=== PATIENT | male | born 1940 | race Caucasian/White ===

== ENCOUNTER → 2016-07-24 | Outpatient (CLI) | payer OTHER ==
[~2016-07-24] MED LIST: ASPEC81 PO; DICL50TA3 PO; GLC500 PO; SIMV80TA2 PO
[2016-07-24 12:18] LABS: BASO % 0.3 %; BASO ABS # 0.02 K/uL (0-0.2); COMPLETE YES; EOS % 2.2 %; HEMATOCRIT 39.7 % (42-52); IG% 0.3 %; LYMPH % 28.8 %; LYMPH ABS # 1.93 K/uL (1.2-3.4); MEAN CELL VOLUME 93.4 fL (80-100); MEAN CORPUSCULAR HEMOGLOBIN 32.9 pg (25-34); MEAN CORPUSCULAR HGB CONC 35.3 g/dl (32-36); MEAN PLATELET VOLUME 10.1 fL (7.4-10.4); MONO % 9.1 %; NEUT % 59.3 %; PLATELET COUNT 182 K/uL (130-400); RED BLOOD COUNT 4.25 M/uL (4.7-6.1)
[2016-07-24 12:32] LABS: ALT/SGPT 27 U/L (12-78); AST/SGOT 12 U/L (15-37); BLOOD UREA NITROGEN 16 mg/dl (7-18); BUN/CREATININE RATIO 13.4 (10-20); CALCIUM 8.1 mg/dl (8.5-10.1); CARBON DIOXIDE 29 mmol/L (21-32); CHLORIDE 104 mmol/L (98-107); GLUCOSE 137 mg/dl (70-99); SODIUM 139 mmol/L (136-145)
[2016-07-24 12:43] LABS: ALB/GLOB RATIO 1.4 (0.9-2); ALKALINE PHOSPHATASE 64 U/L (45-117); CHOLESTEROL 145 mg/dl (0-200); CHOLESTEROL/HDL RATIO 4.8; HDL CHOLESTEROL 30 mg/dl; LDL CHOLESTEROL CALCULATED 70 mg/dl; TRIGLYCERIDES 223 mg/dl (0-150); VERY LOW DENSITY LIPOPROT CALC 45 mg/dl
[2016-07-24 12:49] LABS: ESTIMATED AVERAGE GLUCOSE 143 mg/dl; HA1C FLAG Normal (Normal)
[2016-07-24 18:20] LABS: RATIO 28.4 mcg/mg (0-30.0); URINE APPEARANCE CLEAR (CLEAR); URINE BILIRUBIN NEG (NEG); URINE COLOR YELLOW; URINE NITRITE NEG (NEG); URINE SPECIFIC GRAVITY 1.025 (1.000-1.030); UROBILINOGEN NEG (NEG); ZZUR CULT IF INDIC CLEAN CATCH NO
[2016-07-24 18:22] LABS: MANUAL MICROSCOPIC REQUIRED? NO; REVIEW REQ? NO
== END | disposition home or self-care (01) ==
LOC: C.LABBFT 07:44
PROVIDERS: ATTEND Internal Medicine
DX: E11.49 Type 2 diabetes mellitus with other diabetic neurological complication (principal); E78.5 Hyperlipidemia, unspecified

== ENCOUNTER → 2017-01-22 | Outpatient (CLI) | payer OTHER ==
[2017-01-22 12:39] LABS: ESTIMATED AVERAGE GLUCOSE 140 mg/dl; HA1C FLAG Normal (Normal)
== END | disposition home or self-care (01) ==
LOC: C.LABBFT 07:36
PROVIDERS: ATTEND Internal Medicine
DX: E11.49 Type 2 diabetes mellitus with other diabetic neurological complication (principal)

== ENCOUNTER 2020-07-06 13:35 | Observation (INO) ==
[2020-07-06] MEDS ORDERED: SODIUM CHLORIDE 0.9% 1000ML 1,000 ML IV STA (14:14)
[2020-07-06] MEDS ORDERED: ONDANSETRON INJ 2 MG/ML 2 ML VIAL IV STA (14:14)
--- NOTE | 2020-07-06 14:19 | Emergency Department Note ---
Impression & Plan Diffuse abdominal pain, NAMRATA (acute kidney injury), Acute dehydration, Ureteral stone ED Provider Note NAME: ERICA WALLACE AGE: 79 SEX: M : 1940 ARRIVES VIA: Walk-In INFORMANT: [Patient][] ED PROVIDER(S): [Augie Long MD] CHIEF COMPLAINT: Abdominal pain HISTORY OF PRESENT ILLNESS: The patient is an 79-year-old male who states that he has not been having luck moving his bowels. He has had no bowel movement really for the last 5 days. Patient states that he has colicky abdominal pain that is moderate in severity. He has tried MiraLAX, prune juice, yogurt and suppositories, he tried a fleets enema, nothing seems to help. There has been a loss of appetite and some nausea, no vomiting. No fever. No cough or cold or congestion. No chest pain. The patient has recently had some medication changes. He was put on medications for difficulty emptying his bladder. He wonders if these medications have messed up his intestinal tract. Patient is concerned about a bowel blockage or severe constipation causing his trouble. He has no history of constipation. REVIEW OF SYSTEMS: See HPI for pertinent positives and negatives. A total of ten systems were reviewed and were otherwise negative. PMHx/PSHx: See Below SOCIAL HISTORY: See Below. PHYSICAL EXAM: GENERAL: Patient is in no acute distress. HEENT: No acute trauma, normocephalic atraumatic, mucous membranes moist, no nasal congestion, no scleral icterus. NECK: No stridor, no adenopathy, no meningismus, trachea is midline. LUNGS: Clear to auscultation bilaterally, no wheeze, no rhonchi, breath sounds equal. HEART: Without murmurs gallops or rubs, regular rate and rhythm. ABDOMEN: Soft, nontender, bowel sounds positive, no hernias, no peritonitis. There is some abdominal distention noted. EXTREMITIES: No cyanosis or edema, full range of motion of all the joints with out pain or difficulty, no signs for acute trauma. NEUROLOGIC: Oriented x 3, no acute motor or sensory deficits, no focal weakness. SKIN: No rash, no jaundice, no diaphoresis. Rectal: No stool in the rectal vault. No mass felt. DIFFERENTIAL DIAGNOSIS: Appendicitis, testicular torsion, infections, diverticulitis, UTI, obstruction, mesenteric ischemia, aortic pathology, inflammatory bowel disease, renal colic, PUD, pancreatitis, biliary pathology, hernia, volvulus, constipation, as well as other pathologies. EMERGENCY DEPARTMENT COURSE/PROCEDURES: ECG: Indication was abdominal pain. The ECG shows a normal sinus rhythm with a rate of 81. There is some baseline artifact. There are no PVCs. There is no ST elevation. The QTc is 441. Continuous Cardiac Monitoring: An order was placed for continuous cardiac monitoring. The monitor shows a rate of 98 with normal sinus rhythm. MEDICAL DECISION MAKING: There is a very slight leukocytosis, this could be consistent with infection or just his pain. There is a normal hemoglobin and platelet count. There was evidence for acute kidney injury with a creatinine of 2.22. BUN was also elevated. Lactic acid level was not elevated making severe sepsis less likely. No concerning liver enzyme elevation. No evidence for pancreatitis. Urinalysis suggests some contamination, there was no obvious infection. Covid testing returned negative. Chest x-ray did not show free air or pneumonia. Abdominal and pelvis CT does not show bowel obstruction or any acute surgical process. There was a left-sided hydronephrosis secondary to a large left proximal ureteral stone. Bladder scan testing did not show significant urinary retention. A Foster catheter was not necessary. The patient received IV saline, 1 L. He was given IV Zofran for nausea. He did not want anything for pain. The patient presents with what he thought was constipation. He is not overly constipated. He does appear to have a ureteral stone which I think is causing his abdominal pain. This stone coupled with some dehydration has led to his acute kidney injury. Given his findings, I do think a hospital stay is warranted. He will likely require urologic intervention for stone extraction/removal. I spoke to the patient and his family, I spoke with case management. The on- call hospitalist was consulted. Past Med/Surg History Medical History Arm pain Dental abscess Muscle pain, cervical Myalgia and myositis On prednisone therapy Seizures T2DM (type 2 diabetes mellitus) Surgical History History of colonoscopy History of nasal surgery Family History Mother Myocardial infarction Coronary heart disease Father Hemorrhage Other Family history non-contributory Denies family history of Ovarian cancer Prostate cancer Breast cancer Colorectal cancer Social History Smoking Status: Never smoker Second Hand Exposure: No; Hx Alcohol Use: No Hx Substance Use: No Preferred Language: Greek Communication Ability: Effective Visual Impairment: No Limitations Hearing Ability: Use of Hearing Aid Beliefs That Will Affect Care: None marital status: Current Living Situation: Spouse current occupational status: retired Feels Safe at Home: Yes Childhood Exposure to Second-Hand Smoke: No caffeine: Yes during the past year weight has: remained stable Dental Care, Regularly: Yes Physical Activity Frequency: 1-2 Times per Week Physical Activity Frequency Comment: walks Seatbelt Use: always Sunscreen Use: No Allergies Allergies Allergy/AdvReac Type Severity Reaction Status Date / Time lisinopril Allergy Mild COUGH Verified 07/06/20 14:10 doxazosin AdvReac Mild TIRED Verified 07/06/20 14:10 Home Meds Home Medications Medication Instructions Recorded Confirmed leflunomide 20 mg tablet 20 mg PO DAILY 05/25/20 07/06/20 prednisone 10 mg tablet See Rx Instructions .ROUTE 06/28/20 07/06/20 .COMPLEX tab cholecalciferol (vitamin D3) 50 500 mcg PO DAILY 07/05/20 07/06/20 mcg (2,000 unit) capsule vitamin B complex 1 tab PO DAILY 07/06/20 07/06/20 Previous Rx's Medication Instructions Recorded aspirin 81 mg tablet,delayed 81 mg PO DAILY #30 tab 11/18/18 release ibuprofen 200 mg tablet 200 mg PO Q6H PRN #120 tab 11/18/18 carbidopa ER 25 mg-levodopa 100 mg 1 tab PO BID 30 Days #60 tab 05/26/20 tablet,extended release clotrimazole 1 % topical cream See Rx Instructions TOPICAL BID 06/28/20 PRN #15 g fluconazole 150 mg tablet 150 mg PO Q3D #2 tab 06/28/20 irbesartan 75 mg tablet 75 mg PO DAILY #90 tab 06/28/20 linagliptin 5 mg tablet 5 mg PO DAILY #30 tab 06/28/20 simvastatin 20 mg tablet 20 mg PO DAILY #90 tab 06/28/20 blood sugar diagnostic #100 ea 07/05/20 glimepiride 4 mg tablet 4 mg PO BID #180 tab 07/05/20 tamsulosin 0.4 mg capsule 0.4 mg PO DAILY #30 cap 07/05/20 Results & Data (ED) Vital Signs Vital Signs - 24 hr 07/06/20 13:37 07/06/20 15:33 07/06/20 16:13 Temperature 36.6 C Temperature Source Temporal Artery Scan Pulse Rate 102 H Pulse Rate [Right Finger] 85 Respiratory Rate 18 16 Respiratory Effort / Characteristics Non-Labored Spontaneous Non-Labored Spontaneous Respiratory Depth Normal Normal Blood Pressure 102/61 Blood Pressure [Right Arm] 166/83 H Blood Pressure Mean 74 Blood Pressure Mean [Right Arm] 110 Blood Pressure Position Sitting Pulse Oximetry 94 98 98 Oxygen Delivery Method Room Air Room Air Room Air Sepsis Recent Fever Within 48 Hours No Sepsis New/Unexplained Change in Mental Status No Sepsis Action Taken by Nursing No Action Required 07/06/20 17:42 Temperature Temperature Source Pulse Rate Pulse Rate [Right Finger] Respiratory Rate 16 Respiratory Effort / Characteristics Non-Labored Spontaneous Respiratory Depth Normal Blood Pressure Blood Pressure [Right Arm] 126/76 Blood Pressure Mean Blood Pressure Mean [Right Arm] 92 Blood Pressure Position Pulse Oximetry 98 Oxygen Delivery Method Room Air Sepsis Recent Fever Within 48 Hours Sepsis New/Unexplained Change in Mental Status Sepsis Action Taken by Residential Medications Current Medication List: was personally reviewed by me Laboratory Data Attestation: I reviewed the patient's lab results. Result diagrams: 07/06/20 14:47 07/06/20 14:47 Lab Results 07/06/20 07/06/20 07/06/20 Range/Units 14:47 14:47 14:47 WBC 10.83 H (4.8-10.8) K/uL RBC 4.78 (4.7-6.1) M/uL Hgb 15.1 (14.0-18.0) g/dL Hct 42.1 (42-52) % MCV 88.1 (80-100) fL MCH 31.6 (25-34) pg MCHC 35.9 (32-36) g/dL RDW Std Deviation 45.0 (36.4-46.3) fL RDW Coeff of [place] 13.9 (11.5-14.5) % Plt Count 166 (130-400) K/uL MPV 10.0 (7.4-10.4) fL Immature Gran % (Auto) 0.2 % Neut % (Auto) 74.5 % Lymph % (Auto) 10.0 % [place] % (Auto) 15.0 % Eos % (Auto) 0.2 % Baso % (Auto) 0.1 % Neut # (Auto) 8.08 H (1.4-6.5) K/uL Lymph # (Auto) 1.08 L (1.2-3.4) K/uL [place] # (Auto) 1.62 H (0.11-0.59) K/uL Eos # (Auto) 0.02 (0-0.5) K/uL Baso # (Auto) 0.01 (0-0.2) K/uL Immature Gran # (Auto) 0.02 (0.00-0.02) K/uL Sodium 132 L (136-145) mmol/L Potassium 4.0 (3.5-5.1) mmol/L Chloride 100 (98-107) mmol/L Carbon Dioxide 25 (21-32) mmol/L Anion Gap 7.0 (3-11) BUN 31 H (7-18) mg/dl Creatinine 2.22 H (0.6-1.4) mg/dl Est Cr Clr Drug Dosing 26.5 ml/min Est GFR ( Amer) 31.3 Est GFR (Non-Af Amer) 27.0 BUN/Creatinine Ratio 13.9 (10-20) Glucose 167 H (70-99) mg/dl Lactate 1.3 (0.4-2.0) mmol/L Calcium 8.3 L (8.5-10.1) mg/dl Magnesium 1.8 (1.8-2.4) mg/dl Total Bilirubin 1.3 H (0.2-1) mg/dl AST 9 L (15-37) U/L ALT 12 (12-78) U/L Alkaline Phosphatase 71 (45-117) U/L Troponin I < 0.015 (0-0.045) ng/ml Total Protein 6.7 (6.4-8.2) gm/dl Albumin 3.2 L (3.4-5.0) gm/dl Globulin 3.5 (2.5-4.0) gm/dl Albumin/Globulin Ratio 0.9 (0.9-2) Lipase 101 (73-393) U/L Urine Color Urine Appearance (Clear) Urine pH (4.5-7.5) Ur Specific [place] (1.000-1.030) Urine Protein (Negative) Urine Glucose (UA) (Negative) Urine Ketones (Negative) Urine Blood (Negative) Urine Nitrite (Negative) Urine Bilirubin (Negative) Urine Urobilinogen (Negative) Ur Leukocyte Esterase (Negative) Urine WBC (Auto) (0-5) /hpf Urine RBC (Auto) (0-4) /hpf U Hyaline Cast (Auto) (0-5) /lpf U Epithel Cells (Auto) (0-5) /lpf Urine Bacteria (Auto) (Negative) Urine Crystals Triple Phos Crystals (None Prsent) COVID-19 Eval Order SARS-CoV-2, RNA, NAAT (NEGATIVE) 07/06/20 07/06/20 07/06/20 Range/Units 16:15 17:35 17:35 WBC (4.8-10.8) K/uL RBC (4.7-6.1) M/uL Hgb (14.0-18.0) g/dL Hct (42-52) % MCV (80-100) fL MCH (25-34) pg MCHC (32-36) g/dL RDW Std Deviation (36.4-46.3) fL RDW Coeff of [place] (11.5-14.5) % Plt Count (130-400) K/uL MPV (7.4-10.4) fL Immature Gran % (Auto) % Neut % (Auto) % Lymph % (Auto) % [place] % (Auto) % Eos % (Auto) % Baso % (Auto) % Neut # (Auto) (1.4-6.5) K/uL Lymph # (Auto) (1.2-3.4) K/uL [place] # (Auto) (0.11-0.59) K/uL Eos # (Auto) (0-0.5) K/uL Baso # (Auto) (0-0.2) K/uL Immature Gran # (Auto) (0.00-0.02) K/uL Sodium (136-145) mmol/L Potassium (3.5-5.1) mmol/L Chloride (98-107) mmol/L Carbon Dioxide (21-32) mmol/L Anion Gap (3-11) BUN (7-18) mg/dl Creatinine (0.6-1.4) mg/dl Est Cr Clr Drug Dosing ml/min Est GFR ( Amer) Est GFR (Non-Af Amer) BUN/Creatinine Ratio (10-20) Glucose (70-99) mg/dl Lactate (0.4-2.0) mmol/L Calcium (8.5-10.1) mg/dl Magnesium (1.8-2.4) mg/dl Total Bilirubin (0.2-1) mg/dl AST (15-37) U/L ALT (12-78) U/L Alkaline Phosphatase (45-117) U/L Troponin I (0-0.045) ng/ml Total Protein (6.4-8.2) gm/dl Albumin (3.4-5.0) gm/dl Globulin (2.5-4.0) gm/dl Albumin/Globulin Ratio (0.9-2) Lipase (73-393) U/L Urine Color Yellow Urine Appearance Clear (Clear) Urine pH 5.5 (4.5-7.5) Ur Specific [place] 1.016 (1.000-1.030) Urine Protein 1+ H (Negative) Urine Glucose (UA) 1+ H (Negative) Urine Ketones Negative (Negative) Urine Blood Trace H (Negative) Urine Nitrite Negative (Negative) Urine Bilirubin Negative (Negative) Urine Urobilinogen Negative (Negative) Ur Leukocyte Esterase Negative (Negative) Urine WBC (Auto) 1-5 (0-5) /hpf Urine RBC (Auto) 0-4 (0-4) /hpf U Hyaline Cast (Auto) 1-5 (0-5) /lpf U Epithel Cells (Auto) >30 H (0-5) /lpf Urine Bacteria (Auto) Negative (Negative) Urine Crystals Not Reportable Triple Phos Crystals Present A (None Prsent) COVID-19 Eval Order Covid19 [facility] SARS-CoV-2, RNA, NAAT NEGATIVE (NEGATIVE) Administered Medications Discontinued Medications Sodium Chloride (Nss 1000ml) 1,000 mls @ 999 mls/hr IV .Q1H1M STA Stop: 07/06/20 15:14 Last Infusion: 07/06/20 16:28 Dose: 0 mls/hr Documented by: [id number] Admin: 07/06/20 15:01 Dose: 999 mls/hr Documented by: [id number] Ondansetron HCl (Ondansetron Inj 2 Mg/Ml 2 Ml Vial) 4 mg IV NOW STA Stop: 07/06/20 14:15 Last Admin: 07/06/20 15:01 Dose: 4 mg Documented by: [id number] Imaging Data Radiologist's Impression: SINGLE VIEW CHEST CLINICAL HISTORY: Generalized abdominal pain. FINDINGS: 2 AP, portable, upright chest radiographs are obtained. No prior studies are available for comparison at the time of dictation. The examination is degraded by portable technique, apical lordotic positioning, and patient rotation. The heart is top normal for projection. The pulmonary vasculature is noncongested. No airspace consolidation or large pleural effusion is identified. No pneumothorax is seen. The skeletal structures are osteopenic. The bony thorax is grossly intact. IMPRESSION: No acute cardiopulmonary abnormality. CT SCAN OF THE ABDOMEN AND PELVIS WITHOUT IV CONTRAST CLINICAL HISTORY: Generalized abdominal pain. Bloating. Loss of appetite. COMPARISON STUDY: Renal ultrasound dated 10/26/2019. TECHNIQUE: CT scan of the abdomen and pelvis is performed from the lung bases to the proximal femora. Images are reviewed in the axial, sagittal, and coronal planes. IV contrast was not administered for this examination. Oral contrast was utilized. A dose lowering technique was utilized adhering to the principles of ALARA. CT DOSE: 457.85 mGy.cm FINDINGS: Lung bases: The heart is normal in size and without pericardial effusion. The lung bases are clear noting bibasilar scarring/atelectasis. There is a small hiatal hernia. Liver: The unenhanced liver is normal in size, contour, and attenuation. There is no intrahepatic biliary ductal dilatation. Gallbladder: Unremarkable. Spleen: Normal in size and attenuation. Pancreas: The unenhanced pancreas is moderately atrophic and grossly unremarkable. Adrenal glands: Unremarkable. Kidneys: The unenhanced kidneys demonstrate cortical atrophy. There is a 10 mm obstructing calculus in the left proximal ureter at the level of L3 seen on axial image #231. This causes moderate left hydroureteronephrosis. There is a ssociated left-sided perinephric stranding and fluid. No additional calculi are identified in either kidney. There is no right-sided hydronephrosis. There is no evidence of contour deforming renal mass lesion. Abdominal vasculature: The abdominal aorta is normal in course and caliber noting mild to moderate atherosclerotic calcification. Bowel: There is no bowel obstruction. Enteric contrast reaches the right colon. Mild colonic fecal retention is noted. A large duodenal diverticulum is incide ntally noted. The appendix is well-visualized and normal. Peritoneum: There is no intraperitoneal free air. Trace fluid is seen tracking along the left paracolic gutter. There is a small fat-containing umbilical hernia. Lymphadenopathy: None. Pelvic viscera: The prostate gland is enlarged and heterogeneous noting median lobe hypertrophy. The bladder wall is thickened and trabeculated indicating chronic outlet obstruction. There are small bladder diverticula. There are small bilateral fat-containing inguinal hernias. Skeletal structures: The skeletal structures are osteopenic. There is mild to moderate lumbosacral spondylosis. No lytic or blastic lesions are seen. IMPRESSION: 1. There is a 10 mm obstructing calculus in the left proximal ureter. This causes moderate left hydroureteronephrosis. 2. No additional calculi are identified in either kidney. 3. Prostatomegaly with evidence of chronic bladder outlet obstruction. 4. Additional findings as above. Discharge Plan Visit Data Chief Complaint: Constipation Stated Complaint: UNABLE TO BOWEL MOVEMENT ED Provider: Augie Long Discharge Problem: Diffuse abdominal pain, NAMRATA (acute kidney injury), Acute dehydration, Ureteral stone Patient Disposition: Admitted As Inpatient Condition: Fair Forms Stand Alone Forms: [facility] Prescriptions Prescriptions: No Action carbidopa-levodopa 25-100 mg tablet extended release 1 tab PO BID 30 Days Qty: 60 RF: 2 Tradjenta 5 mg tablet 5 mg PO DAILY Qty: 30 RF: 5 simvastatin 20 mg tablet 20 mg PO DAILY Qty: 90 RF: 1 cholecalciferol (vitamin D3) 50 mcg (2,000 unit) capsule 500 mcg PO DAILY RF: 0 tamsulosin 0.4 mg capsule 0.4 mg PO DAILY Qty: 30 RF: 5 glimepiride 4 mg tablet 4 mg PO BID Qty: 180 RF: 3 (DME) [employer] Ultra Blue Test Strip Strip See Rx Instructions .ROUTE .MEDSUPPLY Qty: 100 RF: 3 leflunomide [Arava] 20 mg tablet 20 mg PO DAILY RF: 0 prednisone 10 mg tablet See Rx Instructions .ROUTE .COMPLEX RF: 0 fluconazole 150 mg tablet 150 mg PO Q3D Qty: 2 RF: 0 clotrimazole 1 % cream See Rx Instructions topical BID PRN (Reason: itching) Qty: 15 RF: 0 irbesartan 75 mg tablet 75 mg PO DAILY Qty: 90 RF: 3 aspirin [Aspirin Low Dose] 81 mg tablet,delayed release (DR/EC) 81 mg PO DAILY Qty: 30 RF: 5 ibuprofen [Advil] 200 mg tablet 200 mg PO Q6H PRN (Reason: pain) Qty: 120 RF: 5 vitamin B complex Tablet 1 tab PO DAILY RF: 0 Referrals Referrals: Umair Shi MD [Primary Care Provider] -
--- NOTE | 2020-07-06 14:39 | XRay Report ---
SINGLE VIEW CHEST CLINICAL HISTORY: Generalized abdominal pain. FINDINGS: 2 AP, portable, upright chest radiographs are obtained. No prior studies are available for comparison at the time of dictation. The examination is degraded by portable technique, apical lordot ic positioning, and patient rotation. The heart is top normal for projection. The pulmonary vasculat ure is noncongested. No airspace consolidation or large pleural effusion is identified. No pneumothor ax is seen. The skeletal structures are osteopenic. The bony thorax is grossly intact. IMPRESSION: No acute cardiopulmonary abnormality. ACT 112: Negative or not required by law. Electronically signed by: Augie Barrientos M.D. 07/06/2020 2:37 PM
[2020-07-06 15:05] LABS: Basophils # (auto) 0.01 K/uL (0-0.2); Basophils % (auto) 0.1 %; Eosinophils # (auto) 0.02 K/uL (0-0.5); Eosinophils % (auto) 0.2 %; Hematocrit (blood only) 42.1 % (42-52); Hemoglobin 15.1 g/dL (14.0-18.0); Immature Granulocytes # (auto) 0.02 K/uL (0.00-0.02); Immature Granulocytes % (auto) 0.2 %; Lymphocytes # (auto) 1.08 K/uL (1.2-3.4); Mean Corpuscular Hemoglobin 31.6 pg (25-34); Mean Corpuscular Hgb Conc 35.9 g/dL (32-36); Mean Corpuscular Volume 88.1 fL (80-100); Monocytes # (auto) 1.62 K/uL (0.11-0.59); Neutrophils # (auto) 8.08 K/uL (1.4-6.5); Neutrophils % (auto) 74.5 %; Platelet Count 166 K/uL (130-400); RDW Coefficient of Variation 13.9 % (11.5-14.5); Red Blood Count 4.78 M/uL (4.7-6.1); White Blood Count 10.83 K/uL (4.8-10.8)
[2020-07-06 15:19] LABS: Albumin Level 3.2 gm/dl (3.4-5.0); BUN Creatinine Ratio 13.9 (10-20); Blood Urea Nitrogen 31 mg/dl (7-18); Calcium 8.3 mg/dl (8.5-10.1); Carbon Dioxide 25 mmol/L (21-32); Chloride 100 mmol/L (98-107); Creatinine Clr Calc Pharmacy 26.5 ml/min; Est GFR (African American) 31.3; Glucose 167 mg/dl (70-99); Lipase 101 U/L (73-393); Magnesium 1.8 mg/dl (1.8-2.4); Sodium 132 mmol/L (136-145)
[2020-07-06 15:25] LABS: Alanine Aminotransferase 12 U/L (12-78); Albumin Globulin Ratio 0.9 (0.9-2); Alkaline Phosphatase 71 U/L (45-117); Aspartate Aminotransferase 9 U/L (15-37); Bilirubin,Total 1.3 mg/dl (0.2-1); Globulin 3.5 gm/dl (2.5-4.0); Total Protein 6.7 gm/dl (6.4-8.2); Troponin I < 0.015 ng/ml (0-0.045)
[2020-07-06 16:57] LABS: Appearance Urine Clear (Clear); Bacteria Urine Automated Negative (Negative); Bilirubin Urine Negative (Negative); Blood Urine Trace (Negative); Color Urine Yellow; Epithelial Cell Urine Auto >30 /lpf (0-5); Glucose Urine UA 1+ (Negative); Ketones Urine Negative (Negative); Leukocyte Esterase Urine Negative (Negative); Nitrite Urine Negative (Negative); Protein Urine 1+ (Negative); RBC Urine Automated 0-4 /hpf (0-4); Specific Gravity Urine 1.016 (1.000-1.030); Urobilinogen Urine Negative (Negative); pH Urine 5.5 (4.5-7.5)
--- NOTE | 2020-07-06 16:58 | Electrocardiogram Report ---
Test Reason : Blood Pressure : / mmHG Vent. Rate : 081 BPM Atrial Rate : 081 BPM P-R Int : 148 ms QRS Dur : 100 ms QT Int : 380 ms P-R-T Axes : 079 -55 067 degrees QTc Int : 441 ms Poor data quality, interpretation may be adversely affected Normal sinus rhythm Left anterior fascicular block Abnormal ECG When compared with ECG of 01-SEP-2018 09:40, Vent. rate has increased BY 28 BPM QT has lengthened Confirmed by Gen Nieves ([id number]) on 07/06/2020 4:58:26 PM Referred By: REFERRED SELF Confirmed By:Cody Nieves
--- NOTE | 2020-07-06 17:05 | CT Scan Report ---
CT SCAN OF THE ABDOMEN AND PELVIS WITHOUT IV CONTRAST CLINICAL HISTORY: Generalized abdominal pain. Bloating. Loss of appetite. COMPARISON STUDY: Renal ultrasound dated 10/26/2019. TECHNIQUE: CT scan of the abdomen and pelvis is performed from the lung bases to the proximal femora. Images are reviewed in the axial, sagittal, and coronal planes. IV contrast was not administered for this examination. Oral contrast was utilized. A dose lowering technique was utilized adhering to the principles of ALARA. CT DOSE: 457.85 mGy.cm FINDINGS: Lung bases: The heart is normal in size and without pericardial effusion. The lung bases are clear no ting bibasilar scarring/atelectasis. There is a small hiatal hernia. Liver: The unenhanced liver is normal in size, contour, and attenuation. There is no intrahepatic jimbo iary ductal dilatation. Gallbladder: Unremarkable. Spleen: Normal in size and attenuation. Pancreas: The unenhanced pancreas is moderately atrophic and grossly unremarkable. Adrenal glands: Unremarkable. Kidneys: The unenhanced kidneys demonstrate cortical atrophy. There is a 10 mm obstructing calculus i n the left proximal ureter at the level of L3 seen on axial image #231. This causes moderate left hyd roureteronephrosis. There is associated left-sided perinephric stranding and fluid. No additional denny culi are identified in either kidney. There is no right-sided hydronephrosis. There is no evidence of contour deforming renal mass lesion. Abdominal vasculature: The abdominal aorta is normal in course and caliber noting mild to moderate at herosclerotic calcification. Bowel: There is no bowel obstruction. Enteric contrast reaches the right colon. Mild colonic fecal re tention is noted. A large duodenal diverticulum is incidentally noted. The appendix is well-visualiz ed and normal. Peritoneum: There is no intraperitoneal free air. Trace fluid is seen tracking along the left paracol ic gutter. There is a small fat-containing umbilical hernia. Lymphadenopathy: None. Pelvic viscera: The prostate gland is enlarged and heterogeneous noting median lobe hypertrophy. The bladder wall is thickened and trabeculated indicating chronic outlet obstruction. There are small gato dder diverticula. There are small bilateral fat-containing inguinal hernias. Skeletal structures: The skeletal structures are osteopenic. There is mild to moderate lumbosacral sp ondylosis. No lytic or blastic lesions are seen. IMPRESSION: 1. There is a 10 mm obstructing calculus in the left proximal ureter. This causes moderate left hydro ureteronephrosis. 2. No additional calculi are identified in either kidney. 3. Prostatomegaly with evidence of chronic bladder outlet obstruction. 4. Additional findings as above. ACT 112: Negative or not required by law. Electronically signed by: Augie Barrientos M.D. 07/06/2020 5:04 PM
[2020-07-06 17:27] LABS: Triple Phosphate Crystal Urine Present (None Prsent)
--- NOTE | 2020-07-06 17:31 | History & Physical Report ---
Date of Service July 06, 2020 Assessment & Plan (1) Nephrolithiasis: - Admit to med surg - Consult urology for possible lithotripsy and stent placement in the AM. Allow clear liquid diet for now with poor appetite and nausea, then NPO after midnight - Pain control with toradol IV, antiemetics with zofran IV, daily bowel regimen for c/o constipation with last BM on 07/02. - Continue NSS at 125 ml/hr x 1 day - Order Flomax starting now, continue on discharge - Strain all urine - Bladder scan ordered, noted from recent outpatient ultrasound that he had chronic bladder outlet obstruction as seen on bladder scanning - COVID-19 negative on admission - pt had received his first vaccination and was scheduled for the second vaccination on 07/07- so will need to reschedule this. (2) T2DM (type 2 diabetes mellitus): -Last A1c was noted to be elevated at 9.8, recheck with a.m. labs -ISS with Accu-Cheks AC at bedtime -Holding glimepiride and linagliptin per [employer] meds-there was discussion regarding starting Januvia as an outpatient -Glucose has been elevated since being on slow prednisone taper (3) Balanitis: -Had taken oral fluconazole last week, continue topical clotrimazole ointment daily- has improved -Likely exacerbated by hyperglycemia in conjunction with prednisone (4) Parkinsons disease: -Continue Sinemet - on low dose due to fatigue -- was recently recommended trial of Tytary as outpatient instead of sinemet. -Follows with Dr. 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 -small tremor obvious on exam (5) CKD (chronic kidney disease) stage 3, GFR 30-59 ml/min: - Cr. elevated at 2.22, baseline appears to be 1.4-1.5 - Continue IV fluids as above - Hold glimepiride and linagliptin, avoid nephrotoxins and renally reduce medications (6) Hypertension: - Continue irbesartan daily (7) Hyperlipidemia: - Cont simvastatin 20 mg daily (8) Arthritis: - Pt is following with the [facility] and was placed on a slow taper of prednisone - 9 mg in Jun, 8 mg July, 7 mg August, 6 mg in September. - positive MITA titer - pt does not recall having a formal diagnosis of rheumatoid arthritis - Will continue prednisone and attempt to manage glucose - consider glycemic pharmacy consult if worsening - PT/OT consults DVT ppx: - teds, heparin subq q12H CODE: DNR/DNI Dispo: From home, likely to remain in the hospital x 1-2 days History of Present Illness Primary Care Provider: Gen Shi MD This is an 79 yo M with PMHx of Parkinsons disease, DM II, on slow prednisone taper for arthritis, urinary frequency and urgency, and balantitis recently being treated with clotrimazole who presents with worsening abdominal pain for the past 5 days. Pt reports feeling better at this point since having some fluids. His pain is somewhat improved in his abdomen although has not received any pain medication here in the ER. Reports he has not had a bowel movement since last Friday. Very poor appetite due to left sided abdominal pain, nausea, dry heaves, and had one episode of vomiting last Friday. He was in to see his PCP yesterday where bladder ultrasound was conducted showing bladder wall thickening and trabeculations consistent with chronic outlet obstruction. Prevoid volume 133 mL, post void volume 84 mL consistent with significant retention. He was referred to see urology however who is present at bedside reports unable to get an appointment until August. 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 He was given a dose of fluconazole for balanitis as well as clotrimazole cream for affected foreskin twice daily, and reports that this has significantly improved. Patient reports his urine is dark and yellow. Of note, he had a UA conducted at PCP recently but was negative for growth on culture. Patient is also diabetic and reports that his glucose has been much higher since being on prednisone for arthritis, since he has been on a slow taper per the [facility]. He has been taking his antiglycemic medications as instructed and states his numbers are fine in the morning but are higher during the day. Discussed likelihood of procedure in the morning with urology and all their questions and concerns were addressed. Allergies Allergy/AdvReac Type Severity Reaction Status Date / Time lisinopril Allergy Mild COUGH Verified 07/06/20 14:10 doxazosin AdvReac Mild TIRED Verified 07/06/20 14:10 Home Medications Medication Instructions Recorded Confirmed Type aspirin 81 mg tablet,delayed 81 mg PO DAILY #30 tab 11/18/18 07/06/20 Rx release ibuprofen 200 mg tablet 200 mg PO Q6H PRN #120 tab 11/18/18 07/06/20 Rx leflunomide 20 mg tablet 20 mg PO DAILY 05/25/20 07/06/20 History carbidopa ER 25 mg-levodopa 100 mg 1 tab PO BID 30 Days #60 tab 05/26/20 07/06/20 Rx tablet,extended release clotrimazole 1 % topical cream See Rx Instructions TOPICAL BID 06/28/20 07/06/20 Rx PRN #15 g fluconazole 150 mg tablet 150 mg PO Q3D #2 tab 06/28/20 07/06/20 Rx irbesartan 75 mg tablet 75 mg PO DAILY #90 tab 06/28/20 07/06/20 Rx linagliptin 5 mg tablet 5 mg PO DAILY #30 tab 06/28/20 07/06/20 Rx prednisone 10 mg tablet See Rx Instructions .ROUTE 06/28/20 07/06/20 History .COMPLEX tab simvastatin 20 mg tablet 20 mg PO DAILY #90 tab 06/28/20 07/06/20 Rx blood sugar diagnostic #100 ea 07/05/20 07/05/20 Rx cholecalciferol (vitamin D3) 50 500 mcg PO DAILY 07/05/20 07/06/20 History mcg (2,000 unit) capsule glimepiride 4 mg tablet 4 mg PO BID #180 tab 07/05/20 07/06/20 Rx tamsulosin 0.4 mg capsule 0.4 mg PO DAILY #30 cap 07/05/20 07/06/20 Rx vitamin B complex 1 tab PO DAILY 07/06/20 07/06/20 History Past Med/Surg History Medical History Arm pain Dental abscess Muscle pain, cervical Myalgia and myositis On prednisone therapy Seizures T2DM (type 2 diabetes mellitus) Surgical History History of colonoscopy History of nasal surgery Family History Mother Myocardial infarction Coronary heart disease Father Hemorrhage Other Family history non-contributory Denies family history of Ovarian cancer Prostate cancer Breast cancer Colorectal cancer Social History Smoking Status: Never smoker Second Hand Exposure: No; Hx Alcohol Use: No Hx Substance Use: No Preferred Language: Iraqi Communication Ability: Effective Visual Impairment: No Limitations Hearing Ability: Use of Hearing Aid Beliefs That Will Affect Care: None marital status: Current Living Situation: Spouse current occupational status: retired Feels Safe at Home: Yes Childhood Exposure to Second-Hand Smoke: No caffeine: Yes during the past year weight has: remained stable Dental Care, Regularly: Yes Physical Activity Frequency: 1-2 Times per Week Physical Activity Frequency Comment: walks Seatbelt Use: always Sunscreen Use: No Review of Systems Review of Systems: Constitutional: No fever, sweats or chills Eyes: No diplopia, no worsening or blurred vision ENT: normal hearing, no trouble swallowing Respiratory: No cough, sputum, dyspnea at rest or on exertion Cardiovascular: No chest pain, tightness or palpitations Abdomen: No pain, nausea, vomiting, diarrhea or constipation Musculoskeletal: No joint pain, calf pain, swelling : improving yeast infection on foreskin, less reddness Neurologic: No weakness, numbness/tingling, or balance problems Psychiatric: No anxiety or depression Skin: No rash or itch Physical Exam Physical Exam: General: awake, alert, no apparent distress, + fine tremor in hands and jaw Head: Normocephalic, atraumatic ENT: PERRL, EOMI, no pharyngeal exudate, mucous membranes moist Chest: Clear to auscultation, on room air, no adventitious breath sounds Cardiac: Regular rate and rhythm, no murmur, no JVD, normal peripheral pulses, good capillary refill Abdominal: NABS x 4 quadrants, soft, nondistended, mildly tender to palpation in LLQ and suprapubic region, no rebound or guarding : refer to attending physical exam Extremities: Normal inspection, no peripheral edema or erythema, calfs nontender to palpation Psych: Normal mood and affect Neuro: AAO x 3, strength intact bilaterally and rated 5/5, no motor deficits, speech is clear, no peripheral sensory deficits Results & Data Results & Data ([facility]) Vital Signs (Past 12 Hours) Vital Signs Temp Pulse Pulse Resp BP BP Pulse Ox 07/06/20 16:13 85 16 166/83 H 98 07/06/20 15:33 98 02/25/21 13:37 36.6 C 102 H 18 102/[address] SCAN OF THE ABDOMEN AND PELVIS WITHOUT IV CONTRAST CLINICAL HISTORY: Generalized abdominal pain. Bloating. Loss of appetite. COMPARISON STUDY: Renal ultrasound dated 10/26/2019. TECHNIQUE: CT scan of the abdomen and pelvis is performed from the lung bases to the proximal femora. Images are reviewed in the axial, sagittal, and coronal planes. IV contrast was not administered for this examination. Oral contrast was utilized. A dose lowering technique was utilized adhering to the principles of ALARA. CT DOSE: 457.85 mGy.cm FINDINGS: Lung bases: The heart is normal in size and without pericardial effusion. The lung bases are clear noting bibasilar scarring/atelectasis. There is a small hiatal hernia. Liver: The unenhanced liver is normal in size, contour, and attenuation. There is no intrahepatic biliary ductal dilatation. Gallbladder: Unremarkable. Spleen: Normal in size and attenuation. Pancreas: The unenhanced pancreas is moderately atrophic and grossly unremarkable. Adrenal glands: Unremarkable. Kidneys: The unenhanced kidneys demonstrate cortical atrophy. There is a 10 mm obstructing calculus in the left proximal ureter at the level of L3 seen on axial image #231. This causes moderate left hydroureteronephrosis. There is associated left-sided perinephric stranding and fluid. No additional calculi are identified in either kidney. There is no right-sided hydronephrosis. There is no evidence of contour deforming renal mass lesion. Abdominal vasculature: The abdominal aorta is normal in course and caliber noting mild to moderate atherosclerotic calcification. Bowel: There is no bowel obstruction. Enteric contrast reaches the right colon. Mild colonic fecal retention is noted. A large duodenal diverticulum is incidentally noted. The appendix is well-visualized and normal. Peritoneum: There is no intraperitoneal free air. Trace fluid is seen tracking along the left paracolic gutter. There is a small fat-containing umbilical hernia. Lymphadenopathy: None. Pelvic viscera: The prostate gland is enlarged and heterogeneous noting median lobe hypertrophy. The bladder wall is thickened and trabeculated indicating chronic outlet obstruction. There are small bladder diverticula. There are small bilateral fat-containing inguinal hernias. Skeletal structures: The skeletal structures are osteopenic. There is mild to moderate lumbosacral spondylosis. No lytic or blastic lesions are seen. IMPRESSION: 1. There is a 10 mm obstructing calculus in the left proximal ureter. This causes moderate left hydroureteronephrosis. 2. No additional calculi are identified in either kidney. 3. Prostatomegaly with evidence of chronic bladder outlet obstruction. 4. Additional findings as above. Code Status & VTE Plan Code Status DNR/DNI Supervising Physician Co-Signing Physician Notes I supervised Michelle Werner PA-C on this admission. I interviewed and examined the patient independently of her. The plan is as written in her note except for any following changes/exceptions: None 79yo M who presents with what he felt was constipation. On CT a/p, he was found to have a large left kidney stone with some hydronephrosis. We will get urology involved and also monitor bladder itself as he has had a ultrasound which showed signs of chronic retention. Will treat constipation with stool softeners. PG Care Time/CCT Total # of Minutes Spent Total Time Spent with Patient: Total time spent is greater than 50% in coordination of care (as documented) at patient's floor/unit and/or counseling patient: Coding Level of Care Code 05029 Initial Inpt Care Lvl 3 Diagnoses Nephrolithiasis N20.0 T2DM (type 2 diabetes mellitus) E11.9 Balanitis N48.1 Parkinsons disease G20 CKD (chronic kidney disease) stage 3, GFR 30-59 ml/min N18.3 Hypertension I10 Hyperlipidemia E78.5 Arthritis M19.90
[2020-07-06] MEDS ORDERED: TAMSULOSIN HCL 0.4 MG CAP PO SCH (18:30)
[2020-07-06] MEDS ORDERED: ONDANSETRON INJ 2 MG/ML 2 ML VIAL IV PRN (20:05)
[2020-07-06] MEDS ORDERED: predniSONE 10 MG TABLET PO SCH (20:05)
[2020-07-06] MEDS ORDERED: DEXTROSE 50% 50 ML SYRINGE IV PRN (20:05)
[2020-07-06] MEDS ORDERED: ACETAMINOPHEN 325 MG TAB PO PRN (20:05)
[2020-07-06] MEDS ORDERED: GLUCAGON FOR INJ 1 MG VIAL SQ PRN (20:05)
[2020-07-06] MEDS ORDERED: GLUCOSE 40% GEL 15 GM TUBE PO PRN (20:05)
[2020-07-06] MEDS ORDERED: CARBOHYDRATES FOR HYPOGLYCEMIA PO PRN (20:05)
[2020-07-06] MEDS ORDERED: KETOROLAC TROMETHAMINE 15 MG/ML VIAL IV PRN (20:25)
[2020-07-06] MEDS: POLYETHYLENE (MIRALAX) 17 GM PACK PO SCH (20:35)
[2020-07-06] MEDS: bisacodyL 5 MG TABEC PO SCH (20:35)
[2020-07-06] MEDS: INSULIN ASPART 100 UNITS/ML 3 ML PEN SC SCH (20:36)
[2020-07-06] MEDS: SODIUM CHLORIDE 0.9% 1000ML 1,000 ML IV SCH (20:36)
[2020-07-06] MEDS ORDERED: CLOTRIMAZOLE 1% CR 15 GM TUBE TOP PRN (21:00)
[2020-07-06] MEDS: HEPARIN SOD 5,000 UNIT/0.5 ML VIAL SQ SCH ×2 (21:09→22:27)
[2020-07-06] MEDS: CARBIDOPA/LEVODOPA 25/100MG EXT REL TAB PO SCH (21:09)
[2020-07-06] MEDS ORDERED: MELATONIN 3 MG TAB PO PRN (21:40)
[2020-07-07] MEDS: SODIUM CHLORIDE 0.9% 1000ML 1,000 ML IV SCH ×2 (03:58→11:20)
[2020-07-07] MEDS: GLUCOSE 10 TABS/TUBE PO PRN ×2 (06:30→21:05)
[2020-07-07 06:51] LABS: Hematocrit (blood only) 39.8 % (42-52); Hemoglobin 14.1 g/dL (14.0-18.0); Mean Corpuscular Hemoglobin 31.4 pg (25-34); Mean Corpuscular Hgb Conc 35.4 g/dL (32-36); Mean Corpuscular Volume 88.6 fL (80-100); Mean Platelet Volume 9.7 fL (7.4-10.4); Platelet Count 166 K/uL (130-400); RDW Coefficient of Variation 13.7 % (11.5-14.5); RDW Standard Deviation 44.5 fL (36.4-46.3); Red Blood Count 4.49 M/uL (4.7-6.1); White Blood Count 11.47 K/uL (4.8-10.8)
[2020-07-07 07:31] LABS: Albumin Level 2.7 gm/dl (3.4-5.0); Calcium 7.6 mg/dl (8.5-10.1); Creatinine Clr Calc Pharmacy 27.2 ml/min; Est GFR (African American) 32.1; Est GFR (Non-African American) 27.7; Potassium 3.5 mmol/L (3.5-5.1)
[2020-07-07 07:45] LABS: Albumin Globulin Ratio 0.8 (0.9-2); Globulin 3.2 gm/dl (2.5-4.0); Total Protein 5.9 gm/dl (6.4-8.2)
[2020-07-07 07:54] LABS: Estimated Average Glucose 226 mg/dl; Hemoglobin A1C 9.5 % (4.5-5.6)
[2020-07-07] MEDS: SIMVASTATIN 20 MG TAB PO SCH (07:58)
[2020-07-07] MEDS: CARBIDOPA/LEVODOPA 25/100MG EXT REL TAB PO SCH ×2 (07:58→21:33)
[2020-07-07] MEDS: VITAMIN B COMPLEX TAB PO SCH (07:58)
[2020-07-07] MEDS: CHOLECALCIFEROL 1,000 UNITS 25 MCG TAB PO SCH (07:58)
[2020-07-07] MEDS: ASPIRIN 81 MG ECTAB PO SCH (07:58)
[2020-07-07] MEDS: LEFLUNOMIDE 10 MG TAB PO SCH (07:59)
[2020-07-07] MEDS: TAMSULOSIN HCL 0.4 MG CAP PO SCH (07:59)
[2020-07-07] MEDS: bisacodyL 5 MG TABEC PO SCH (08:04)
[2020-07-07] MEDS: HEPARIN SOD 5,000 UNIT/0.5 ML VIAL SQ SCH ×3 (08:05→19:41)
--- NOTE | 2020-07-07 08:45 | Hospitalist Progress Note ---
Date of Service July 07, 2020 Assessment & Plan (1) Nephrolithiasis: * CTAP with 10 mm obstructing calculus in the left proximal ureter with moderate left hydroureteronephrosis. * NPO * Urology consulted -- no intervention for today scheduled * To give diet for today * Continue IVF NSS @ 125cc/hr * Continue flomax -- will likely need continued at discharge * strain urine * bladder scan * Ceftriaxone ordered by Urology * Recent urine without infection, repeat does not appear infected, however does note triple phos crystals Plans for intervention tomorrow -- make NPO after midnight (2) Benign prostate hyperplasia: * Now with stone/obstruction * Prior Renal/Bladder US showed bladder wall thickening and evidence of chronic outlet obstruction. Pre-void volume 133mL, post-void volume 84 mL which is not consistent with significant retention. * Continue finasteride 5mg as prescribed POLICE MATRON * Flomax as above (3) T2DM (type 2 diabetes mellitus): * Last A1c was noted to be elevated at 9.8, recheck 9.5 * ISS with Accu-Cheks AC at bedtime * Holding glimepiride and linagliptin per POLICE MATRON meds-there was discussion regarding starting Januvia as an outpatient * Glucose has been elevated since being on slow prednisone taper * Will loosen parameters given sugars <100 on fingersticks * Continue to monitor (4) Balanitis: * Had taken oral fluconazole last week, continue topical clotrimazole ointment daily- has improved * Likely exacerbated by hyperglycemia in conjunction with prednisone (5) Parkinsons disease: * Continue Sinemet - on low dose due to fatigue -- was recently recommended trial of Tytary as outpatient instead of sinemet. * Follows with Dr. 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 * small tremor obvious on exam * no acute needs (6) CKD (chronic kidney disease) stage 3, GFR 30-59 ml/min: * with acute kidney injury on admission with Cr. elevated at 2.22 --> baseline appears to be 1.4-1.5 * Continue IV fluids as above * Hold glimepiride and linagliptin, avoid nephrotoxins and renally reduce medications * Planning on holding Irbesrtan moving forward. Unfortunately he did receive his dose this morning with Cr still elevated at 2.17 * BMP in AM (7) Hypertension: * Chronic. Stable. BP 121/69 * HOLDING Irbesartan as above given NAMRATA although patient already received dose this morning prior to being held * Continue to monitor (8) Hyperlipidemia: * Cont simvastatin 20 mg daily (9) Arthritis: * Pt is following with the [facility] and was placed on a slow taper of prednisone - 9 mg in Jun, 8 mg July, 7 mg August, 6 mg in September. * positive MITA titer - pt does not recall having a formal diagnosis of rheumatoid arthritis * Will continue prednisone and attempt to manage glucose - consider glycemic pharmacy consult if worsening * PT/OT consults pending Constipation * Has not had BM since Friday (Typically goes daily) * Miralax, colace ordered, fleet enema prn * Will give dulcolax suppository now * Continue to monitor DVT ppx: * teds * heparin subq q12H -- will hold AM dose CODE: DNR/DNI From Home. Dispo: NPO after midnight for intervention Admission and Anticipated Discharge Date Admission Date: July 06, 2020 Supervising Physician Co-Signing Physician Notes PA Supervision Note: I did not personally see or examine the patient today, but I verified all keith points of SHAMA Rosa's assessment and plan with the following exceptions/additions: NAMRATA, left ureterolithiasis with mod hydro. continue IVFs, hold toradol as is NSAID, agree with holding ARB follow BMP, UOP plan for Urol intervention tomorrow Subjective Patient evaluated this morning. Up in chair. Comfortable but does have some low back pain and would like to get back into bed soon. Eating/drinking today. Passing gas but no BM since Friday. Typically goes every day. Plans for enema shortly. Discussed NPO after midnight for procedure. He is curious on how long it will take, if they have to make any "cuts" and how long he would expect to be in the hospital. Discussed if he tolerates procedure well, labs acceptable and his is able to void after lujan removal we would potentially consider discharge evening after procedure. No fever, chills, chest pain, shortness of breath at this time. Review of Systems Review of Systems: All systems reviewed & are unremarkable except as noted in HPI & below Physical Exam Constitutional: well developed, cooperative and comfortable; no acute distress and not ill appearing fine tremor noted Eyes: + anicteric sclerae and PERRL ENMT: Ears: no external ear abnormality Nose: no external nose abnormality dry mm Neck: normal visual inspection and trachea midline Respiratory: normal respiratory effort and able to speak in complete sentences; no respiratory distress and no audible wheezes Cardiovascular: Extremities: no calf tenderness and no edema Gastrointestinal (Abdomen): Inspection/Auscultation: abdomen normal to inspection, + abdomen distended (Mildly distended) and normal bowel sounds Percussion/Palpation: + abdomen tender (minimally tender); no guarding Musculoskeletal: Head/Neck/Chest: normocephalic and head atraumatic Skin: warm, dry Neurologic: moves all extremities and awake Psychiatric: Orientation: alert, oriented x 3 and cooperative Affect: euthymic affect Genitourinary: no CVA tenderness Results & Data Results & Data ([facility]) Vital Signs (Past 12 Hours) Vital Signs Temp Pulse Resp BP Pulse Ox 07/07/20 07:08 36.7 C 88 16 121/69 95 07/06/20 22:36 36.8 C 87 16 154/75 H 94 07/06/20 21:45 140/72 Laboratory Results 07/07/20 07/07/20 07/07/20 Range/Units 08:07 06:45 06:38 WBC (4.8-10.8) K/uL RBC (4.7-6.1) M/uL Hgb (14.0-18.0) g/dL Hct (42-52) % MCV (80-100) fL MCH (25-34) pg MCHC (32-36) g/dL RDW Std Deviation (36.4-46.3) fL RDW Coeff of [place] (11.5-14.5) % Plt Count (130-400) K/uL MPV (7.4-10.4) fL Immature Gran % (Auto) % Neut % (Auto) % Lymph % (Auto) % [place] % (Auto) % Eos % (Auto) % Baso % (Auto) % Neut # (Auto) (1.4-6.5) K/uL Lymph # (Auto) (1.2-3.4) K/uL [place] # (Auto) (0.11-0.59) K/uL Eos # (Auto) (0-0.5) K/uL Baso # (Auto) (0-0.2) K/uL Immature Gran # (Auto) (0.00-0.02) K/uL Sodium (136-145) mmol/L Potassium (3.5-5.1) mmol/L Chloride (98-107) mmol/L Carbon Dioxide (21-32) mmol/L Anion Gap (3-11) BUN (7-18) mg/dl Creatinine (0.6-1.4) mg/dl Est Cr Clr Drug Dosing ml/min Est GFR ( Amer) Est GFR (Non-Af Amer) BUN/Creatinine Ratio (10-20) Glucose (70-99) mg/dl POC Glucose 80 79 (70-99) mg/dl Estimat Average Glucose 226 mg/dl Hemoglobin A1c 9.5 H (4.5-5.6) % Lactate (0.4-2.0) mmol/L Calcium (8.5-10.1) mg/dl Magnesium (1.8-2.4) mg/dl Total Bilirubin (0.2-1) mg/dl AST (15-37) U/L ALT (12-78) U/L Alkaline Phosphatase (45-117) U/L Troponin I (0-0.045) ng/ml Total Protein (6.4-8.2) gm/dl Albumin (3.4-5.0) gm/dl Globulin (2.5-4.0) gm/dl Albumin/Globulin Ratio (0.9-2) Lipase (73-393) U/L Urine Color Urine Appearance (Clear) Urine pH (4.5-7.5) Ur Specific [place] (1.000-1.030) Urine Protein (Negative) Urine Glucose (UA) (Negative) Urine Ketones (Negative) Urine Blood (Negative) Urine Nitrite (Negative) Urine Bilirubin (Negative) Urine Urobilinogen (Negative) Ur Leukocyte Esterase (Negative) Urine WBC (Auto) (0-5) /hpf Urine RBC (Auto) (0-4) /hpf U Hyaline Cast (Auto) (0-5) /lpf U Epithel Cells (Auto) (0-5) /lpf Urine Bacteria (Auto) (Negative) Urine Crystals Triple Phos Crystals (None Prsent) COVID-19 Eval Order SARS-CoV-2, RNA, NAAT (NEGATIVE) 07/07/20 07/07/20 07/07/20 Range/Units 06:38 06:38 06:24 WBC 11.47 H (4.8-10.8) K/uL RBC 4.49 L (4.7-6.1) M/uL Hgb 14.1 (14.0-18.0) g/dL Hct 39.8 L (42-52) % MCV 88.6 (80-100) fL MCH 31.4 (25-34) pg MCHC 35.4 (32-36) g/dL RDW Std Deviation 44.5 (36.4-46.3) fL RDW Coeff of [place] 13.7 (11.5-14.5) % Plt Count 166 (130-400) K/uL MPV 9.7 (7.4-10.4) fL Immature Gran % (Auto) % Neut % (Auto) % Lymph % (Auto) % [place] % (Auto) % Eos % (Auto) % Baso % (Auto) % Neut # (Auto) (1.4-6.5) K/uL Lymph # (Auto) (1.2-3.4) K/uL [place] # (Auto) (0.11-0.59) K/uL Eos # (Auto) (0-0.5) K/uL Baso # (Auto) (0-0.2) K/uL Immature Gran # (Auto) (0.00-0.02) K/uL Sodium 139 D (136-145) mmol/L Potassium 3.5 (3.5-5.1) mmol/L Chloride 107 (98-107) mmol/L Carbon Dioxide 24 (21-32) mmol/L Anion Gap 8.0 (3-11) BUN 26 H (7-18) mg/dl Creatinine 2.17 H (0.6-1.4) mg/dl Est Cr Clr Drug Dosing 27.2 ml/min Est GFR ( Amer) 32.1 Est GFR (Non-Af Amer) 27.7 BUN/Creatinine Ratio 12.0 (10-20) Glucose 62 L (70-99) mg/dl POC Glucose 66 L* (70-99) mg/dl Estimat Average Glucose mg/dl Hemoglobin A1c (4.5-5.6) % Lactate (0.4-2.0) mmol/L Calcium 7.6 L (8.5-10.1) mg/dl Magnesium (1.8-2.4) mg/dl Total Bilirubin 1.0 (0.2-1) mg/dl AST 12 L (15-37) U/L ALT 8 L (12-78) U/L Alkaline Phosphatase 65 (45-117) U/L Troponin I (0-0.045) ng/ml Total Protein 5.9 L (6.4-8.2) gm/dl Albumin 2.7 L (3.4-5.0) gm/dl Globulin 3.2 (2.5-4.0) gm/dl Albumin/Globulin Ratio 0.8 L (0.9-2) Lipase (73-393) U/L Urine Color Urine Appearance (Clear) Urine pH (4.5-7.5) Ur Specific [place] (1.000-1.030) Urine Protein (Negative) Urine Glucose (UA) (Negative) Urine Ketones (Negative) Urine Blood (Negative) Urine Nitrite (Negative) Urine Bilirubin (Negative) Urine Urobilinogen (Negative) Ur Leukocyte Esterase (Negative) Urine WBC (Auto) (0-5) /hpf Urine RBC (Auto) (0-4) /hpf U Hyaline Cast (Auto) (0-5) /lpf U Epithel Cells (Auto) (0-5) /lpf Urine Bacteria (Auto) (Negative) Urine Crystals Triple Phos Crystals (None Prsent) COVID-19 Eval Order SARS-CoV-2, RNA, NAAT (NEGATIVE) 07/07/20 07/06/20 07/06/20 Range/Units 06:19 20:29 17:35 WBC (4.8-10.8) K/uL RBC (4.7-6.1) M/uL Hgb (14.0-18.0) g/dL Hct (42-52) % MCV (80-100) fL MCH (25-34) pg MCHC (32-36) g/dL RDW Std Deviation (36.4-46.3) fL RDW Coeff of [place] (11.5-14.5) % Plt Count (130-400) K/uL MPV (7.4-10.4) fL Immature Gran % (Auto) % Neut % (Auto) % Lymph % (Auto) % [place] % (Auto) % Eos % (Auto) % Baso % (Auto) % Neut # (Auto) (1.4-6.5) K/uL Lymph # (Auto) (1.2-3.4) K/uL [place] # (Auto) (0.11-0.59) K/uL Eos # (Auto) (0-0.5) K/uL Baso # (Auto) (0-0.2) K/uL Immature Gran # (Auto) (0.00-0.02) K/uL Sodium (136-145) mmol/L Potassium (3.5-5.1) mmol/L Chloride (98-107) mmol/L Carbon Dioxide (21-32) mmol/L Anion Gap (3-11) BUN (7-18) mg/dl Creatinine (0.6-1.4) mg/dl Est Cr Clr Drug Dosing ml/min Est GFR ( Amer) Est GFR (Non-Af Amer) BUN/Creatinine Ratio (10-20) Glucose (70-99) mg/dl POC Glucose 68 L* 91 (70-99) mg/dl Estimat Average Glucose mg/dl Hemoglobin A1c (4.5-5.6) % Lactate (0.4-2.0) mmol/L Calcium (8.5-10.1) mg/dl Magnesium (1.8-2.4) mg/dl Total Bilirubin (0.2-1) mg/dl AST (15-37) U/L ALT (12-78) U/L Alkaline Phosphatase (45-117) U/L Troponin I (0-0.045) ng/ml Total Protein (6.4-8.2) gm/dl Albumin (3.4-5.0) gm/dl Globulin (2.5-4.0) gm/dl Albumin/Globulin Ratio (0.9-2) Lipase (73-393) U/L Urine Color Urine Appearance (Clear) Urine pH (4.5-7.5) Ur Specific [place] (1.000-1.030) Urine Protein (Negative) Urine Glucose (UA) (Negative) Urine Ketones (Negative) Urine Blood (Negative) Urine Nitrite (Negative) Urine Bilirubin (Negative) Urine Urobilinogen (Negative) Ur Leukocyte Esterase (Negative) Urine WBC (Auto) (0-5) /hpf Urine RBC (Auto) (0-4) /hpf U Hyaline Cast (Auto) (0-5) /lpf U Epithel Cells (Auto) (0-5) /lpf Urine Bacteria (Auto) (Negative) Urine Crystals Triple Phos Crystals (None Prsent) COVID-19 Eval Order SARS-CoV-2, RNA, NAAT NEGATIVE (NEGATIVE) 07/06/20 07/06/20 07/06/20 Range/Units 17:35 16:15 14:47 WBC (4.8-10.8) K/uL RBC (4.7-6.1) M/uL Hgb (14.0-18.0) g/dL Hct (42-52) % MCV (80-100) fL MCH (25-34) pg MCHC (32-36) g/dL RDW Std Deviation (36.4-46.3) fL RDW Coeff of [place] (11.5-14.5) % Plt Count (130-400) K/uL MPV (7.4-10.4) fL Immature Gran % (Auto) % Neut % (Auto) % Lymph % (Auto) % [place] % (Auto) % Eos % (Auto) % Baso % (Auto) % Neut # (Auto) (1.4-6.5) K/uL Lymph # (Auto) (1.2-3.4) K/uL [place] # (Auto) (0.11-0.59) K/uL Eos # (Auto) (0-0.5) K/uL Baso # (Auto) (0-0.2) K/uL Immature Gran # (Auto) (0.00-0.02) K/uL Sodium (136-145) mmol/L Potassium (3.5-5.1) mmol/L Chloride (98-107) mmol/L Carbon Dioxide (21-32) mmol/L Anion Gap (3-11) BUN (7-18) mg/dl Creatinine (0.6-1.4) mg/dl Est Cr Clr Drug Dosing ml/min Est GFR ( Amer) Est GFR (Non-Af Amer) BUN/Creatinine Ratio (10-20) Glucose (70-99) mg/dl POC Glucose (70-99) mg/dl Estimat Average Glucose mg/dl Hemoglobin A1c (4.5-5.6) % Lactate 1.3 (0.4-2.0) mmol/L Calcium (8.5-10.1) mg/dl Magnesium (1.8-2.4) mg/dl Total Bilirubin (0.2-1) mg/dl AST (15-37) U/L ALT (12-78) U/L Alkaline Phosphatase (45-117) U/L Troponin I (0-0.045) ng/ml Total Protein (6.4-8.2) gm/dl Albumin (3.4-5.0) gm/dl Globulin (2.5-4.0) gm/dl Albumin/Globulin Ratio (0.9-2) Lipase (73-393) U/L Urine Color Yellow Urine Appearance Clear (Clear) Urine pH 5.5 (4.5-7.5) Ur Specific [place] 1.016 (1.000-1.030) Urine Protein 1+ H (Negative) Urine Glucose (UA) 1+ H (Negative) Urine Ketones Negative (Negative) Urine Blood Trace H (Negative) Urine Nitrite Negative (Negative) Urine Bilirubin Negative (Negative) Urine Urobilinogen Negative (Negative) Ur Leukocyte Esterase Negative (Negative) Urine WBC (Auto) 1-5 (0-5) /hpf Urine RBC (Auto) 0-4 (0-4) /hpf U Hyaline Cast (Auto) 1-5 (0-5) /lpf U Epithel Cells (Auto) >30 H (0-5) /lpf Urine Bacteria (Auto) Negative (Negative) Urine Crystals Not Reportable Triple Phos Crystals Present A (None Prsent) COVID-19 Eval Order [facility] SARS-CoV-2, RNA, NAAT (NEGATIVE) 07/06/20 07/06/20 Range/Units 14:47 14:47 WBC 10.83 H (4.8-10.8) K/uL RBC 4.78 (4.7-6.1) M/uL Hgb 15.1 (14.0-18.0) g/dL Hct 42.1 (42-52) % MCV 88.1 (80-100) fL MCH 31.6 (25-34) pg MCHC 35.9 (32-36) g/dL RDW Std Deviation 45.0 (36.4-46.3) fL RDW Coeff of [place] 13.9 (11.5-14.5) % Plt Count 166 (130-400) K/uL MPV 10.0 (7.4-10.4) fL Immature Gran % (Auto) 0.2 % Neut % (Auto) 74.5 % Lymph % (Auto) 10.0 % [place] % (Auto) 15.0 % Eos % (Auto) 0.2 % Baso % (Auto) 0.1 % Neut # (Auto) 8.08 H (1.4-6.5) K/uL Lymph # (Auto) 1.08 L (1.2-3.4) K/uL [place] # (Auto) 1.62 H (0.11-0.59) K/uL Eos # (Auto) 0.02 (0-0.5) K/uL Baso # (Auto) 0.01 (0-0.2) K/uL Immature Gran # (Auto) 0.02 (0.00-0.02) K/uL Sodium 132 L (136-145) mmol/L Potassium 4.0 (3.5-5.1) mmol/L Chloride 100 (98-107) mmol/L Carbon Dioxide 25 (21-32) mmol/L Anion Gap 7.0 (3-11) BUN 31 H (7-18) mg/dl Creatinine 2.22 H (0.6-1.4) mg/dl Est Cr Clr Drug Dosing 26.5 ml/min Est GFR ( Amer) 31.3 Est GFR (Non-Af Amer) 27.0 BUN/Creatinine Ratio 13.9 (10-20) Glucose 167 H (70-99) mg/dl POC Glucose (70-99) mg/dl Estimat Average Glucose mg/dl Hemoglobin A1c (4.5-5.6) % Lactate (0.4-2.0) mmol/L Calcium 8.3 L (8.5-10.1) mg/dl Magnesium 1.8 (1.8-2.4) mg/dl Total Bilirubin 1.3 H (0.2-1) mg/dl AST 9 L (15-37) U/L ALT 12 (12-78) U/L Alkaline Phosphatase 71 (45-117) U/L Troponin I < 0.015 (0-0.045) ng/ml Total Protein 6.7 (6.4-8.2) gm/dl Albumin 3.2 L (3.4-5.0) gm/dl Globulin 3.5 (2.5-4.0) gm/dl Albumin/Globulin Ratio 0.9 (0.9-2) Lipase 101 (73-393) U/L Urine Color Urine Appearance (Clear) Urine pH (4.5-7.5) Ur Specific [place] (1.000-1.030) Urine Protein (Negative) Urine Glucose (UA) (Negative) Urine Ketones (Negative) Urine Blood (Negative) Urine Nitrite (Negative) Urine Bilirubin (Negative) Urine Urobilinogen (Negative) Ur Leukocyte Esterase (Negative) Urine WBC (Auto) (0-5) /hpf Urine RBC (Auto) (0-4) /hpf U Hyaline Cast (Auto) (0-5) /lpf U Epithel Cells (Auto) (0-5) /lpf Urine Bacteria (Auto) (Negative) Urine Crystals Triple Phos Crystals (None Prsent) COVID-19 Eval Order SARS-CoV-2, RNA, NAAT (NEGATIVE) Diagnostic Findings CTAP FINDINGS: Lung bases: The heart is normal in size and without pericardial effusion. The lung bases are clear noting bibasilar scarring/atelectasis. There is a small hiatal hernia. Liver: The unenhanced liver is normal in size, contour, and attenuation. There is no intrahepatic biliary ductal dilatation. Gallbladder: Unremarkable. Spleen: Normal in size and attenuation. Pancreas: The unenhanced pancreas is moderately atrophic and grossly unremarkable. Adrenal glands: Unremarkable. Kidneys: The unenhanced kidneys demonstrate cortical atrophy. There is a 10 mm obstructing calculus in the left proximal ureter at the level of L3 seen on axial image #231. This causes moderate left hydroureteronephrosis. There is associated left-sided perinephric stranding and fluid. No additional calculi are identified in either kidney. There is no right-sided hydronephrosis. There is no evidence of contour deforming renal mass lesion. Abdominal vasculature: The abdominal aorta is normal in course and caliber noting mild to moderate atherosclerotic calcification. Bowel: There is no bowel obstruction. Enteric contrast reaches the right colon. Mild colonic fecal retention is noted. A large duodenal diverticulum is incidentally noted. The appendix is well-visualized and normal. Peritoneum: There is no intraperitoneal free air. Trace fluid is seen tracking along the left paracolic gutter. There is a small fat-containing umbilical hernia. Lymphadenopathy: None. Pelvic viscera: The prostate gland is enlarged and heterogeneous noting median lobe hypertrophy. The bladder wall is thickened and trabeculated indicating chronic outlet obstruction. There are small bladder diverticula. There are small bilateral fat-containing inguinal hernias. Skeletal structures: The skeletal structures are osteopenic. There is mild to moderate lumbosacral spondylosis. No lytic or blastic lesions are seen. IMPRESSION: 1. There is a 10 mm obstructing calculus in the left proximal ureter. This causes moderate left hydroureteronephrosis. 2. No additional calculi are identified in either kidney. 3. Prostatomegaly with evidence of chronic bladder outlet obstruction. 4. Additional findings as above. CXR IMPRESSION: No acute cardiopulmonary abnormality. PG Care Time/CCT Total # of Minutes Spent Total Time Spent with Patient: Total time spent is greater than 50% in coordination of care (as documented) at patient's floor/unit and/or counseling patient: Coding Level of Care Code 32319 Subseq Hosp Care Lvl 3 Diagnoses Nephrolithiasis N20.0 Benign prostate hyperplasia N40.0 T2DM (type 2 diabetes mellitus) E11.9 Balanitis N48.1 Parkinsons disease G20 CKD (chronic kidney disease) stage 3, GFR 30-59 ml/min N18.3 Hypertension I10 Hyperlipidemia E78.5 Arthritis M19.90
[2020-07-07] MEDS: INSULIN ASPART 100 UNITS/ML 3 ML PEN SC SCH ×4 (08:46→21:32)
[2020-07-07] MEDS ORDERED: IRBESARTAN 75 MG TAB PO SCH (09:00)
--- NOTE | 2020-07-07 09:32 | Urology Consultation ---
Date of Consultation July 07, 2020 Assessment & Plan (1) Ureteral stone: (2) Diffuse abdominal pain: (3) Balanitis: 79 year-old male patient, with multiple comorbidities, admitted with abdominal pain likely secondary to 10 mm obstructing left proximal ureteral calculus in addition to constipation. -Patient afebrile. -Labs reviewed - mild elevation in white count, creatinine above baseline. -Urinalysis not indicative of infection, culture from 06/28 no growth. -Continue with supportive care, bowel regimen, hydration, pain control, and Tamsulosin. -Check post void residual given feelings of incomplete emptying. -Balanitis improved with Clotrimazole, minimal irritation at present. -Okay to have diet today, recommend NPO at midnight. -Will plan for surgical intervention tomorrow with cystoscopy, left ureteroscopy, laser lithotripsy/stone extraction, and left stent placement. -Risks and benefits of procedure discussed and to be reviewed with patient by Dr. Ford. -OR notified. EKG and chest x-ray in chart. COVID-19 negative. -Will plan to cover with IV Ceftriaxone preoperatively. Please consult our service urgently if patient develops fever >101F, intractable pain or nausea, as this will necessitate urgent surgical intervention. Thank you for the consultation and we will continue to monitor closely with primary service. History of Present Illness Reason for Consultation: Left obstructing ureteral stone Attending Physician: Teresa Woodruff MD History of Present Illness 79 year-old male patient with past medical history of Parkinsons disease, DM II, on slow prednisone taper for arthritis, BPH with obstruction, balanitis (recently being treated with clotrimazole), CKD, hypertension, and hyperlipidemia who presented to the ER with worsening abdominal pain that started roughly 5 days ago. Patient reported he had not had a bowel movement since last week. Developed nausea with vomiting x1 this past Friday. Of note, was recently seen by his PCP for urinary frequency/urgency secondary to BPH. He was started on Flomax at that time. Was also recently treated with Fluconazole f or balanitis as well as Clotrimazole which he continues. CT abd/pelvis was performed which noted 10 mm obstructing left proximal ureteral calculus and he ultimately was admitted for further evaluation. Urology consulted for 10 mm obstructing left ureteral calculus. Patient reports he has not followed with a urologist in the past. No known history of kidney stones. Chart review: Afebrile Wbc 11.47 (previously 10.83) Hgb 14.1 Creatinine 2.17 (previously 2.22) - baseline appears to be around 1.5. Most recent urinalysis negative for leukocytes, 1-5 wbc, 0-4 rbc, negative bacteria, nitrate negative. Urine culture from 06/28 no growth. Imaging - Bladder ultrasound 07/03 - IMPRESSION: 1. Prostatomegaly with urinary bladder wall thickening and trabeculation suggestive of chronic bladder outlet obstruction. 2. Post void residual of [address] abd/pelvis without contrast 07/06 - IMPRESSION: 1. There is a 10 mm obstructing calculus in the left proximal ureter. This causes moderate left hydroureteronephrosis. 2. No additional calculi are identified in either kidney. 3. Prostatomegaly with evidence of chronic bladder outlet obstruction. Patient examined at bedside. He is alert, awake, and appears comfortable. He currently denies pain. Does report on-going constipation, still has not had bowel movement. Denies nausea or vomiting. Denies fevers or chills. Does report he has on-going urinary frequency/urgency. Denies dysuria or hematuria. Does not feel always feel like he empties his bladder. Symptoms of balanitis have resolved with oral Fluconazole and topical Clotrimazole. He has been NPO since midnight. As above, no prior history of kidney stones. No family history of stones. No prior complications with anesthesia. Denies additional urologic concerns today. Allergies Allergy/AdvReac Type Severity Reaction Status Date / Time lisinopril Allergy Mild COUGH Verified 07/06/20 14:10 doxazosin AdvReac Mild TIRED Verified 07/06/20 14:10 Home Medications Medication Instructions Recorded Confirmed Type aspirin 81 mg tablet,delayed 81 mg PO DAILY #30 tab 11/18/18 07/06/20 Rx release ibuprofen 200 mg tablet 200 mg PO Q6H PRN #120 tab 11/18/18 07/06/20 Rx leflunomide 20 mg tablet 20 mg PO DAILY 05/25/20 07/06/20 History carbidopa ER 25 mg-levodopa 100 mg 1 tab PO BID 30 Days #60 tab 05/26/20 07/06/20 Rx tablet,extended release clotrimazole 1 % topical cream See Rx Instructions TOPICAL BID 06/28/20 07/06/20 Rx PRN #15 g fluconazole 150 mg tablet 150 mg PO Q3D #2 tab 06/28/20 07/06/20 Rx irbesartan 75 mg tablet 75 mg PO DAILY #90 tab 06/28/20 07/06/20 Rx linagliptin 5 mg tablet 5 mg PO DAILY #30 tab 06/28/20 07/06/20 Rx prednisone 10 mg tablet See Rx Instructions .ROUTE 06/28/20 07/06/20 History .COMPLEX tab simvastatin 20 mg tablet 20 mg PO DAILY #90 tab 06/28/20 07/06/20 Rx blood sugar diagnostic #100 ea 07/05/20 07/05/20 Rx cholecalciferol (vitamin D3) 50 500 mcg PO DAILY 07/05/20 07/06/20 History mcg (2,000 unit) capsule glimepiride 4 mg tablet 4 mg PO BID #180 tab 07/05/20 07/06/20 Rx tamsulosin 0.4 mg capsule 0.4 mg PO DAILY #30 cap 07/05/20 07/06/20 Rx vitamin B complex 1 tab PO DAILY 07/06/20 07/06/20 History Patient History Medical History Arm pain Dental abscess Muscle pain, cervical Myalgia and myositis On prednisone therapy Seizures T2DM (type 2 diabetes mellitus) Surgical History History of colonoscopy History of nasal surgery History of nose surgery on CCD Family History Mother Myocardial infarction Coronary heart disease Father Hemorrhage Other Family history non-contributory Denies family history of Ovarian cancer Prostate cancer Breast cancer Colorectal cancer Social History Smoking Status: Never smoker Second Hand Exposure: No; Do You Dip or Chew Tobacco: No; Tobacco Cessation Education Requested by Patient: No Hx Alcohol Use: No Hx Substance Use: No Preferred Language: Mohawk Communication Ability: Effective Visual Impairment: No Limitations Hearing Ability: Use of Hearing Aid Manager Transmission Required: No Beliefs That Will Affect Care: None marital status: Current Living Situation: Spouse current occupational status: retired Other Information That Helps Us Care for You: No Feels Safe at Home: Yes Safety Concerns: Feels Safe At This Time Childhood Exposure to Second-Hand Smoke: No caffeine: Yes during the past year weight has: remained stable Dental Care, Regularly: Yes Physical Activity Frequency: 1-2 Times per Week Physical Activity Frequency Comment: walks Seatbelt Use: always Sunscreen Use: No Assistive Devices: Hearing Aid - Bilateral Review of Systems Constitutional: as per Subjective / HPI; no fever and no chills Eyes: no problem reported Ear, Nose, Mouth, Throat: no dizziness Respiratory: no cough and no dyspnea Cardiovascular: no chest pain and no edema Gastrointestinal: as per Subjective / HPI Genitourinary: + as per Subjective / HPI Musculoskeletal: as per Subjective / HPI Integumentary: as per Subjective / HPI Neurologic: no dizziness Endocrine: no fatigue Hematologic / Lymphatic: no problem reported Physical Exam Constitutional: well developed and well nourished; no acute distress and not ill appearing ENMT: Ears: no external ear abnormality Nose: no external nose abnormality Neck: normal visual inspection and trachea midline Respiratory: normal respiratory effort and able to speak in complete sentences; no respiratory distress and no audible wheezes Cardiovascular: Extremities: no calf tenderness and no edema Gastrointestinal (Abdomen): Inspection/Auscultation: abdomen normal to inspection and + abdomen distended (Mildly distended) Percussion/Palpation: + abdomen tender (Diffuse tenderness to abdomen, mild ) and abdomen soft; no guarding Musculoskeletal: Moves all extremities without difficulty. Skin: No visible rashes, lesions, or wounds noted. Neurologic: moves all extremities and awake + tremor in bilateral hands Psychiatric: Orientation: alert, oriented x 3 and cooperative Affect: euthymic affect Genitourinary: no CVA tenderness Uncircumcised, very minimal irritation noted to base of glans. Foreskin able to be retracted and replaced. Results & Data ([facility]) Vital Signs (Past 12 Hours) Vital Signs Temp Pulse Resp BP Pulse Ox 07/07/20 07:08 36.7 C 88 16 121/69 95 07/06/20 22:36 36.8 C 87 16 154/75 H 94 07/06/20 21:45 140/72 PG Care Time/CCT Total # of Minutes Spent Total Time Spent with Patient: Total time spent is greater than 50% in coordination of care (as documented) at patient's floor/unit and/or counseling patient: Coding Level of Care Code 02059 Initial Inpt Care Lvl 3 Diagnoses Ureteral stone N20.1 Diffuse abdominal pain R10.84 Balanitis N48.1
[2020-07-07] MEDS: POLYETHYLENE (MIRALAX) 17 GM PACK PO SCH (09:47)
[2020-07-07] MEDS: predniSONE 1 MG TAB PO SCH (09:49)
[2020-07-07] MEDS: predniSONE 5 MG TAB PO SCH (09:50)
[2020-07-07] MEDS ORDERED: SOD PHOSPHATE/SOD BIPHOSPHATE ENEMA 132 ML BTL PR PRN (11:41)
[2020-07-07] MEDS ORDERED: bisacodyL 10 MG SUPP PR STA (11:43)
[2020-07-07] MEDS ORDERED: DOCUSATE SODIUM 100 MG CAP PO STA (11:44)
[2020-07-07] MEDS: FINASTERIDE 5 MG TAB PO SCH (14:18)
--- NOTE | 2020-07-07 15:34 | Anesthesiology Consultation ---
Date of Service July 07, 2020 Assessment & Plan (1) Encounter for pre-operative examination: Chart Review Chart Review: order entry representative initiated History Surgery Operation Date: 07/08/20 09:15 Proposed Procedures p Cystoscopy, Left Retrograde Pyelogram, Ureteroscopy, Laser Lithotripsy, and Stent Placement - Umair Ford MD Height/Weight Height: 5 ft 9 in Weight: 79.3 kg Allergies Allergy/AdvReac Type Severity Reaction Status Date / Time lisinopril Allergy Mild COUGH Verified 07/06/20 14:10 doxazosin AdvReac Mild TIRED Verified 07/06/20 14:10 Medications Home Medications Medication Instructions Recorded Confirmed Last Taken aspirin 81 mg tablet,delayed 81 mg PO DAILY #30 tab 11/18/18 07/06/20 07/05/20 release ibuprofen 200 mg tablet 200 mg PO Q6H PRN #120 tab 11/18/18 07/06/20 Unknown leflunomide 20 mg tablet 20 mg PO DAILY 05/25/20 07/06/20 07/05/20 carbidopa ER 25 mg-levodopa 100 mg 1 tab PO BID 30 Days #60 tab 05/26/2007/0607/05/20 tablet,extended release clotrimazole 1 % topical cream See Rx Instructions TOPICAL BID 06/28/20 07/06/20 Unknown PRN #15 g fluconazole 150 mg tablet 150 mg PO Q3D #2 tab 06/28/20 07/06/20 Unknown irbesartan 75 mg tablet 75 mg PO DAILY #90 tab 06/28/20 07/06/20 07/05/20 linagliptin 5 mg tablet 5 mg PO DAILY #30 tab 06/28/20 07/06/20 07/05/20 prednisone 10 mg tablet See Rx Instructions .ROUTE 06/28/20 07/06/20 07/05/20 .COMPLEX tab simvastatin 20 mg tablet 20 mg PO DAILY #90 tab 06/28/20 07/06/20 07/05/20 blood sugar diagnostic #100 ea 07/05/20 07/05/20 Unknown cholecalciferol (vitamin D3) 50 500 mcg PO DAILY 07/05/20 07/06/20 07/05/20 mcg (2,000 unit) capsule glimepiride 4 mg tablet 4 mg PO BID #180 tab 07/05/20 07/06/2021 tamsulosin 0.4 mg capsule 0.4 mg PO DAILY #30 cap 07/05/20 07/06/20 07/05/20 vitamin B complex 1 tab PO DAILY 07/06/20 07/06/20 07/05/20 Active Medications Generic Name Dose Route Start Last Admin Trade Name Freq PRN Reason Stop Dose Admin Aspirin 81 mg 07/07/20 09:00 07/07/20 07:58 Aspirin 81 Mg Ectab PO 08/06/20 08:59 81 mg DAILY [place] Administration Bisacodyl 5 mg 07/06/20 18:45 07/07/20 08:04 Bisacodyl 5 Mg Tabec PO 08/05/20 18:44 5 mg DAILY [place] Administration Carbidopa/Levodopa 1 tab 07/06/20 21:00 07/07/20 07:58 Carbidopa/Levodopa 25/100mg Ext Rel Tab PO 08/05/20 20:59 1 tab BID [place] Administration Finasteride 5 mg 07/07/20 12:30 07/07/20 14:18 Finasteride 5 Mg Tab PO 08/06/20 12:29 5 mg QAM [place] Administration Glucose 4 - 8 tabs 07/06/20 20:05 07/07/20 06:30 Glucose 10 Tabs/Tube PO 08/05/20 20:04 4 tabs UD PRN Administration Hypoglycemia Protocol Protocol Heparin Sodium (Porcine) 5,000 units 07/06/20 21:00 07/07/20 13:15 Heparin Sod 5,000 Unit/0.5 Ml Vial SQ 08/05/20 20:59 5,000 units Q12 [place] Administration Sodium Chloride 1,000 mls @ 125 mls/hr 07/06/20 20:30 07/07/20 11:20 Nss 1000ml IV 07/07/20 20:29 125 mls/hr .Q8H [place] Administration Insulin Aspart 0 units 07/06/20 21:00 07/07/20 13:06 Insulin Aspart 100 Units/Ml 3 Ml Pen SC 08/05/20 20:59 Not Given ACHS [place] Irbesartan 75 mg 07/07/20 09:00 07/07/20 07:59 Irbesartan 75 Mg Tab PO 08/06/20 08:59 75 mg DAILY [place] Administration Leflunomide 20 mg 07/07/20 09:00 07/07/20 07:59 Leflunomide 10 Mg Tab PO 08/06/20 08:59 20 mg DAILY [place] Administration Melatonin 3 mg 07/06/20 21:40 07/06/20 22:30 Melatonin 3 Mg Tab PO 08/05/20 21:39 3 mg HS PRN Administration Sleep Polyethylene Glycol 17 gm 07/06/20 18:45 07/07/20 09:47 Polyethylene (Miralax) 17 Gm Pack PO 08/05/20 18:44 17 gm DAILY [place] Administration Prednisone 5 mg 07/07/20 09:00 07/07/20 09:50 Prednisone 5 Mg Tab PO 08/06/20 08:59 5 mg DAILY [place] Administration Prednisone 4 mg 07/07/20 09:00 07/07/20 09:49 Prednisone 1 Mg Tab PO 07/09/20 09:01 4 mg DAILY [place] Administration Simvastatin 20 mg 07/07/20 09:00 07/07/20 07:58 Simvastatin 20 Mg Tab PO 08/06/20 08:59 20 mg DAILY [place] Administration Tamsulosin HCl 0.4 mg 07/07/20 09:00 07/07/20 07:59 Tamsulosin Hcl 0.4 Mg Cap PO 08/06/20 08:59 0.4 mg DAILY [place] Administration Vitamin B Complex 1 tab 07/07/20 09:00 07/07/20 07:58 Vitamin B Complex Tab PO 08/06/20 08:59 1 tab DAILY [place] Administration Vitamin D 500 units 07/07/20 09:00 07/07/20 07:58 Cholecalciferol 1,000 Units 25 Mcg Tab PO 08/06/20 08:59 500 units DAILY [place] Administration Past Medical History Medical History Arm pain Dental abscess Muscle pain, cervical Myalgia and myositis On prednisone therapy Seizures T2DM (type 2 diabetes mellitus) Past Family History Family History Mother Myocardial infarction Coronary heart disease Father Hemorrhage Other Family history non-contributory Denies family history of Ovarian cancer Prostate cancer Breast cancer Colorectal cancer Past Surgical History Surgical History History of colonoscopy History of nasal surgery History of nose surgery on CCD Social History Smoking Status: Never smoker Do You Dip or Chew Tobacco: No Hx Alcohol Use: No Hx Substance Use: No Physical Exam Vital Signs Last Vital Signs Temp 96 F L 07/07/20 15:17 Pulse 77 07/07/20 15:17 Resp 18 07/07/20 15:17 BP 138/70 07/07/20 15:17 Pulse Ox 96 07/07/20 15:17 Testing Laboratory Results 07/07/20 06:38 07/07/20 06:38 Hemoglobin A1c 9.5 % (4.5-5.6) H 07/07/20 06:38 Urine Color Yellow 07/06/20 16:15 Urine Appearance Clear (Clear) 07/06/20 16:15 Urine pH 5.5 (4.5-7.5) 07/06/20 16:15 Ur Specific Sn[place] 1.016 (1.000-1.030) 07/06/20 16:15 Urine Protein 1+ (Negative) H 07/06/20 16:15 Urine Glucose (UA) 1+ (Negative) H 07/06/20 16:15 Urine Ketones Negative (Negative) 07/06/20 16:15 Urine Nitrite Negative (Negative) 07/06/20 16:15 Ur Leukocyte Esterase Negative (Negative) 07/06/20 16:15 Urine WBC (Auto) 1-5 /hpf (0-5) 07/06/20 16:15 Urine RBC (Auto) 0-4 /hpf (0-4) 07/06/20 16:15 U Hyaline Cast (Auto) 1-5 /lpf (0-5) 07/06/20 16:15 U Epithel Cells (Auto) >30 /lpf (0-5) H 07/06/20 16:15 Urine Bacteria (Auto) Negative (Negative) 07/06/20 16:15 07/07/20 07/07/20 07/07/20 12:03 08:07 06:45 POC Glucose 72 80 79 07/07/20 07/07/20 06:24 06:19 POC Glucose 66 L* 68 L* Laboratory Tests 07/06/20 17:35 SARS-CoV-2, RNA, NAAT NEGATIVE Electrocardiogram Date: 07/06/20 Normal sinus rhythm, rate 81 bpm Left anterior fascicular block Abnormal ECG When compared with ECG of 01-SEP-2018 09:40, Vent. rate has increased BY 28 BPM QT has lengthened Confirmed by Gen Nieves ([id number]) on 07/06/2020 4:58:26 PM Chest X-Ray Date: 07/06/20 Findings: + NAD Cervical Spine Date: 02/15/20 IMPRESSION: 1. No cervical spine fracture or subluxation. 2. Mild multilevel degenerative disc disease and moderate facet arthrosis within the cervical spine.
[2020-07-07] MEDS: DOCUSATE SODIUM 100 MG CAP PO SCH (21:32)
[2020-07-08] MEDS ORDERED: cefTRIAXone SODIUM 2,000 MG in DEXTROSE 5% 50 ML IV ONE (06:00)
[2020-07-08] MEDS ORDERED: Nursing to Pharmacy Communication SCH (06:30)
[2020-07-08 06:33] LABS: Hematocrit (blood only) 38.3 % (42-52); Hemoglobin 13.6 g/dL (14.0-18.0); Mean Corpuscular Hemoglobin 31.5 pg (25-34); Mean Corpuscular Hgb Conc 35.5 g/dL (32-36); Mean Corpuscular Volume 88.7 fL (80-100); Mean Platelet Volume 9.7 fL (7.4-10.4); Platelet Count 173 K/uL (130-400); RDW Coefficient of Variation 13.8 % (11.5-14.5); RDW Standard Deviation 45.2 fL (36.4-46.3); Red Blood Count 4.32 M/uL (4.7-6.1); White Blood Count 8.87 K/uL (4.8-10.8)
[2020-07-08 07:25] LABS: Albumin Globulin Ratio 0.8 (0.9-2); Albumin Level 2.7 gm/dl (3.4-5.0); BUN Creatinine Ratio 12.1 (10-20); Bilirubin,Total 0.7 mg/dl (0.2-1); Calcium 7.6 mg/dl (8.5-10.1); Creatinine Clr Calc Pharmacy 29.8 ml/min; Est GFR (African American) 35.9; Globulin 3.4 gm/dl (2.5-4.0); Potassium 3.5 mmol/L (3.5-5.1); Total Protein 6.1 gm/dl (6.4-8.2)
[2020-07-08] MEDS: TAMSULOSIN HCL 0.4 MG CAP PO SCH (07:52)
[2020-07-08] MEDS: ASPIRIN 81 MG ECTAB PO SCH (07:52)
[2020-07-08] MEDS: CHOLECALCIFEROL 1,000 UNITS 25 MCG TAB PO SCH (07:52)
[2020-07-08] MEDS: FINASTERIDE 5 MG TAB PO SCH (07:52)
[2020-07-08] MEDS: VITAMIN B COMPLEX TAB PO SCH (07:53)
[2020-07-08] MEDS: SIMVASTATIN 20 MG TAB PO SCH (07:53)
[2020-07-08] MEDS: LEFLUNOMIDE 10 MG TAB PO SCH (07:53)
[2020-07-08] MEDS: predniSONE 1 MG TAB PO SCH (07:54)
[2020-07-08] MEDS: predniSONE 5 MG TAB PO SCH (07:54)
--- NOTE | 2020-07-08 07:54 | Urology Progress Note ---
Date of Service July 08, 2020 Assessment & Plan (1) Nephrolithiasis: 10mm prox left ureteral calculus - plan for cysto, URS/Laser litho - risks, benefits, and alternatives discussed Admission and Anticipated Discharge Date Admission Date: July 06, 2020 Subjective 79y/o male w/ a 10mm left proximal ureteral calculus - no passage or substantial changes overnight - planning for surgery to treat the stone today Physical Exam Constitutional: well developed and well nourished Neck: neck nontender Respiratory: normal respiratory effort; no respiratory distress and does not use accessory muscles Cardiovascular: Rate/Rhythm: regular rate Vessels: radial pulses present Extremities: no edema Gastrointestinal (Abdomen): Inspection/Auscultation: abdomen normal to inspection Percussion/Palpation: abdomen soft; abdomen nontender and no guarding Musculoskeletal: Head/Neck/Chest: normocephalic and head atraumatic Extremities: extremities normal to inspection Skin: no rashes and no lesions Trauma: no evidence of skin trauma Neurologic: awake; not obtunded Speech / Cognition: normal speech Motor/Sensory: no tremor Psychiatric: Orientation: alert and oriented x 3 Genitourinary: no CVA tenderness Lymphatic: no lymphadenopathy Results & Data ([facility]) Vital Signs (Past 12 Hours) Vital Signs Temp Pulse Resp BP BP Pulse Ox 07/08/20 07:25 36.7 C 87 18 149/69 H 96 07/07/20 23:24 37 C 83 16 132/72 95 PG Care Time/CCT Total # of Minutes Spent Total Time Spent with Patient: Total time spent is greater than 50% in coordination of care (as documented) at patient's floor/unit and/or counseling patient: Coding Level of Care Code 01907 Subseq Hosp Care Lvl 2 Diagnoses Nephrolithiasis N20.0
[2020-07-08] MEDS: CARBIDOPA/LEVODOPA 25/100MG EXT REL TAB PO SCH (07:57)
[2020-07-08] MEDS: POLYETHYLENE (MIRALAX) 17 GM PACK PO SCH (07:58)
[2020-07-08] MEDS: DOCUSATE SODIUM 100 MG CAP PO SCH (07:58)
[2020-07-08] MEDS: bisacodyL 5 MG TABEC PO SCH (07:58)
[2020-07-08] MEDS ORDERED: ATROPINE SULFATE 0.1 MG/ML 10ML SYR IV PRN (08:17)
[2020-07-08] MEDS ORDERED: MoRPHine SULFATE 10 MG/ML CARP/VIAL IV PRN (08:17)
[2020-07-08] MEDS ORDERED: ONDANSETRON INJ 2 MG/ML 2 ML VIAL IV PRN (08:17)
[2020-07-08] MEDS ORDERED: fentaNYL citrate 100 MCG/2 ML VIAL IV PRN (08:17)
[2020-07-08] MEDS ORDERED: MEPERIDINE HCL 25 MG/ML CARP/VIAL IV PRN (08:17)
[2020-07-08] MEDS ORDERED: ePHEDrine sulfate 50 MG/ML AMP IV PRN (08:17)
[2020-07-08] MEDS ORDERED: LIDOCAINE HCL 2% 2 ML VIAL/AMP(20MG/ML) INFIL ONE (09:04)
[2020-07-08] MEDS ORDERED: ONDANSETRON INJ 2 MG/ML 2 ML VIAL ONE ×2 (09:04→09:48)
[2020-07-08] MEDS ORDERED: PROPOFOL IV EMULSION 10 MG/ML 20 ML VIAL IV ONE (09:04)
--- NOTE | 2020-07-08 09:04 | Hospitalist Progress Note ---
Date of Service July 08, 2020 Assessment & Plan Admission and Anticipated Discharge Date Admission Date: July 06, 2020 Results & Data Results & Data ([facility]) Vital Signs (Past 12 Hours) Vital Signs Temp Pulse Resp BP BP Pulse Ox 07/08/20 08:00 96 07/08/20 07:25 36.7 C 87 18 149/69 H 96 07/07/20 23:24 37 C 83 16 132/72 95 Laboratory Results 07/08/20 07/08/20 07/08/20 Range/Units 08:24 06:52 06:28 WBC (4.8-10.8) K/uL RBC (4.7-6.1) M/uL Hgb (14.0-18.0) g/dL Hct (42-52) % MCV (80-100) fL MCH (25-34) pg MCHC (32-36) g/dL RDW Std Deviation (36.4-46.3) fL RDW Coeff of [place] (11.5-14.5) % Plt Count (130-400) K/uL MPV (7.4-10.4) fL Sodium (136-145) mmol/L Potassium (3.5-5.1) mmol/L Chloride (98-107) mmol/L Carbon Dioxide (21-32) mmol/L Anion Gap (3-11) BUN (7-18) mg/dl Creatinine (0.6-1.4) mg/dl Est Cr Clr Drug Dosing ml/min Est GFR ( Amer) Est GFR (Non-Af Amer) BUN/Creatinine Ratio (10-20) Glucose (70-99) mg/dl POC Glucose 139 H 158 H 37 L* (70-99) mg/dl Calcium (8.5-10.1) mg/dl Total Bilirubin (0.2-1) mg/dl AST (15-37) U/L ALT (12-78) U/L Alkaline Phosphatase (45-117) U/L Total Protein (6.4-8.2) gm/dl Albumin (3.4-5.0) gm/dl Globulin (2.5-4.0) gm/dl Albumin/Globulin Ratio (0.9-2) 07/08/20 07/08/20 07/08/20 Range/Units 06:14 06:05 06:04 WBC (4.8-10.8) K/uL RBC (4.7-6.1) M/uL Hgb (14.0-18.0) g/dL Hct (42-52) % MCV (80-100) fL MCH (25-34) pg MCHC (32-36) g/dL RDW Std Deviation (36.4-46.3) fL RDW Coeff of [place] (11.5-14.5) % Plt Count (130-400) K/uL MPV (7.4-10.4) fL Sodium 139 (136-145) mmol/L Potassium 3.5 (3.5-5.1) mmol/L Chloride 107 (98-107) mmol/L Carbon Dioxide 25 (21-32) mmol/L Anion Gap 7.0 (3-11) BUN 24 H (7-18) mg/dl Creatinine 1.98 H (0.6-1.4) mg/dl Est Cr Clr Drug Dosing 29.8 ml/min Est GFR ( Amer) 35.9 Est GFR (Non-Af Amer) 31.0 BUN/Creatinine Ratio 12.1 (10-20) Glucose 33 L* (70-99) mg/dl POC Glucose 39 L* 41 L* (70-99) mg/dl Calcium 7.6 L (8.5-10.1) mg/dl Total Bilirubin 0.7 (0.2-1) mg/dl AST 24 (15-37) U/L ALT 9 L (12-78) U/L Alkaline Phosphatase 71 (45-117) U/L Total Protein 6.1 L (6.4-8.2) gm/dl Albumin 2.7 L (3.4-5.0) gm/dl Globulin 3.4 (2.5-4.0) gm/dl Albumin/Globulin Ratio 0.8 L (0.9-2) 07/08/20 07/08/20 07/07/20 Range/Units 06:04 06:02 21:55 WBC 8.87 (4.8-10.8) K/uL RBC 4.32 L (4.7-6.1) M/uL Hgb 13.6 L (14.0-18.0) g/dL Hct 38.3 L (42-52) % MCV 88.7 (80-100) fL MCH 31.5 (25-34) pg MCHC 35.5 (32-36) g/dL RDW Std Deviation 45.2 (36.4-46.3) fL RDW Coeff of [place] 13.8 (11.5-14.5) % Plt Count 173 (130-400) K/uL MPV 9.7 (7.4-10.4) fL Sodium (136-145) mmol/L Potassium (3.5-5.1) mmol/L Chloride (98-107) mmol/L Carbon Dioxide (21-32) mmol/L Anion Gap (3-11) BUN (7-18) mg/dl Creatinine (0.6-1.4) mg/dl Est Cr Clr Drug Dosing ml/min Est GFR ( Amer) Est GFR (Non-Af Amer) BUN/Creatinine Ratio (10-20) Glucose (70-99) mg/dl POC Glucose 38 L* 96 (70-99) mg/dl Calcium (8.5-10.1) mg/dl Total Bilirubin (0.2-1) mg/dl AST (15-37) U/L ALT (12-78) U/L Alkaline Phosphatase (45-117) U/L Total Protein (6.4-8.2) gm/dl Albumin (3.4-5.0) gm/dl Globulin (2.5-4.0) gm/dl Albumin/Globulin Ratio (0.9-2) 07/07/20 07/07/20 07/07/20 Range/Units 21:26 21:00 20:58 WBC (4.8-10.8) K/uL RBC (4.7-6.1) M/uL Hgb (14.0-18.0) g/dL Hct (42-52) % MCV (80-100) fL MCH (25-34) pg MCHC (32-36) g/dL RDW Std Deviation (36.4-46.3) fL RDW Coeff of [place] (11.5-14.5) % Plt Count (130-400) K/uL MPV (7.4-10.4) fL Sodium (136-145) mmol/L Potassium (3.5-5.1) mmol/L Chloride (98-107) mmol/L Carbon Dioxide (21-32) mmol/L Anion Gap (3-11) BUN (7-18) mg/dl Creatinine (0.6-1.4) mg/dl Est Cr Clr Drug Dosing ml/min Est GFR ( Amer) Est GFR (Non-Af Amer) BUN/Creatinine Ratio (10-20) Glucose (70-99) mg/dl POC Glucose 62 L* 56 L* 52 L* (70-99) mg/dl Calcium (8.5-10.1) mg/dl Total Bilirubin (0.2-1) mg/dl AST (15-37) U/L ALT (12-78) U/L Alkaline Phosphatase (45-117) U/L Total Protein (6.4-8.2) gm/dl Albumin (3.4-5.0) gm/dl Globulin (2.5-4.0) gm/dl Albumin/Globulin Ratio (0.9-2) 07/07/20 07/07/20 Range/Units 16:49 12:03 WBC (4.8-10.8) K/uL RBC (4.7-6.1) M/uL Hgb (14.0-18.0) g/dL Hct (42-52) % MCV (80-100) fL MCH (25-34) pg MCHC (32-36) g/dL RDW Std Deviation (36.4-46.3) fL RDW Coeff of [place] (11.5-14.5) % Plt Count (130-400) K/uL MPV (7.4-10.4) fL Sodium (136-145) mmol/L Potassium (3.5-5.1) mmol/L Chloride (98-107) mmol/L Carbon Dioxide (21-32) mmol/L Anion Gap (3-11) BUN (7-18) mg/dl Creatinine (0.6-1.4) mg/dl Est Cr Clr Drug Dosing ml/min Est GFR ( Amer) Est GFR (Non-Af Amer) BUN/Creatinine Ratio (10-20) Glucose (70-99) mg/dl POC Glucose 93 72 (70-99) mg/dl Calcium (8.5-10.1) mg/dl Total Bilirubin (0.2-1) mg/dl AST (15-37) U/L ALT (12-78) U/L Alkaline Phosphatase (45-117) U/L Total Protein (6.4-8.2) gm/dl Albumin (3.4-5.0) gm/dl Globulin (2.5-4.0) gm/dl Albumin/Globulin Ratio (0.9-2) PG Care Time/CCT Total # of Minutes Spent Total Time Spent with Patient: Total time spent is greater than 50% in coordination of care (as documented) at patient's floor/unit and/or counseling patient: Coding
[2020-07-08] MEDS ORDERED: fentaNYL citrate 100 MCG/2 ML VIAL ONE (09:05)
[2020-07-08] MEDS ORDERED: DEXAMETHASONE SOD INJ 4 MG/ML VIAL ONE (09:48)
--- NOTE | 2020-07-08 10:00 | Operative Report ---
PG Post Operative Report Pre & Post Diagnosis Operation Date: 07/08/20 09:15 Pre-Op Diagnosis: Left Nephrolithasis, Hydrourteronephosis Post-Op Diagnosis: Left Nephrolithasis, Hydrourteronephosis I identified the patient and participated in the time-out.: Yes Procedure Operation Date: 07/08/20 09:15 Actual Procedures p Cystoscopy, Ureteroscopy, Laser Lithotripsy, and Left Stent Placement(Left) - Umair Ford MD Surgeon Gen Ford MD Product Development Ecologist none Estimated Blood Loss 0 Findings Consistent with Post-Op Diagnosis Specimens none Description of Procedure The patient was identified in the preoperative holding area, appropriate informed consents were reviewed and completed and the patient was transferred to the operative suite. Upon arrival, appropriate antibiotics and anesthesia were administered and the patient was placed in dorsal lithotomy position and prepped and draped in sterile fashion. To begin the case I passed a 22 Ugandan cystoscope with 30 degree lens. Inspection revealed a healthy-appearing urethra and a modestly enlarged prostate. The bladder was healthy in appearance with ureteral orifices in orthotopic position. There was a minimal amount of stone debris within the bladderI irrigated this out of the bladder. I then turned my attention to the left UO. I cannulated with a sensor wire and a 10 Ugandan double-lumen catheter. The wire advanced to the kidney without difficulty. I then introduced a second wire. I exchanged the 10 Ugandan double-lumen catheter for a flexible ureteroscope. No significant resistance was felt in the area of the proximal ureter where the stone had been located previously. I then attached the camera and inspected. There certainly was some inflammation of the proximal ureter but no stone within the proximal ureter. In the kidney a full renoscopy was conducted. He had a stone that had been pushed to the upper pole. I presume I move this retrograde with the scope. This was a yellow appearing, smooth calculus. I passed a 272 m laser fiber and fragmented the stone into pieces that were all deemed safe for spontaneous passage. It was a soft stone and fragmented easily. There were no other large fragments identified within any aspect of the kidney. A careful exit ureteroscopy showed a clear ureter. A 6 Ugandan by 26 cm double-J ureteral stent was introduced with a good curl in the kidney as well as the bladder. There were no complications. He tolerated the procedure very well and was extubated and taken to the PACU in stable condition. I attest to the content of the Intraoperative Record and any orders documented therein. Any exceptions are noted below.
--- NOTE | 2020-07-08 10:30 | Anesthesiology Progress Note ---
Date of Service July 08, 2020 Anesthesia Post Procedure Vital Signs Vital Signs: Temp Pulse Pulse Resp BP BP Pulse Ox 07/08/20 10:20 76 16 120/67 95 07/08/20 10:10 76 16 120/69 100 07/08/20 10:03 36.2 C L 75 16 130/76 99 07/08/20 08:00 96 07/08/20 07:25 36.7 C 87 18 149/69 H 96 07/07/20 23:24 37 C 83 16 132/72 95 07/07/20 18:13 96 07/07/20 15:17 35.5 C L 77 18 138/70 96 Pain Intensity Lower Abdomen: Pain Intensity: 6 Transfer of Care Handoff Completed per policy Notes Mental Status: alert / awake / arousable Patient Amnestic to Procedure: Yes Nausea / Vomiting: adequately controlled Pain: adequately controlled Airway Patency, RR, SpO2: stable & adequate BP & HR: stable & adequate Hydration State: stable & adequate Anesthetic Complications: no major complications apparent and Pt Satisfied with anesthetic care
--- NOTE | 2020-07-08 11:21 | Fluoroscopy Report ---
INTRAOPERATIVE RADIOGRAPH CLINICAL HISTORY: Left-sided ureteral stent placement. Fluoroscopy time: 11 seconds. FINDINGS: A single spot fluoroscopic view of the left upper quadrant is correlated with abdominal CT dated 07/06/2020. The proximal end of a left ureteral stent projects over the left renal pelvis. No ca lcifications are seen along the imaged portions of the stent. IMPRESSION: Intraoperative image from a left ureteral stent placement procedure as above. Electronically signed by: Augie Barrientos M.D. 07/08/2020 11:20 AM
[2020-07-08] MEDS ORDERED: INSULIN ASPART 100 UNITS/ML 3 ML PEN SC SCH (12:00)
[2020-07-08] MEDS ORDERED: predniSONE 10 MG TABLET PO STA (12:45)
--- NOTE | 2020-07-08 13:06 | Discharge Summary ---
Date of Service July 08, 2020 Admission HPI Per Admitting Provider This is an 79 yo M with PMHx of Parkinsons disease, DM II, on slow prednisone taper for arthritis, urinary frequency and urgency, and balantitis recently being treated with clotrimazole who presents with worsening abdominal pain for the past 5 days. Pt reports feeling better at this point since having some fluids. His pain is somewhat improved in his abdomen although has not received any pain medication here in the ER. Reports he has not had a bowel movement since last Friday. Very poor appetite due to left sided abdominal pain, nausea, dry heaves, and had one episode of vomiting last Friday. He was in to see his PCP yesterday where bladder ultrasound was conducted showing bladder wall thickening and trabeculations consistent with chronic outlet obstruction. Prevoid volume 133 mL, post void volume 84 mL consistent with significant retention. He was referred to see urology however who is present at bedside reports unable to get an appointment until August. He was to start a trial of flomax HS, but did not belt picker this medication yet. He was given a dose of fluconazole for balanitis as well as clotrimazole cream for affected foreskin twice daily, and reports that this has significantly improved. Patient reports his urine is dark and yellow. Of note, he had a UA conducted at PCP recently but was negative for growth on culture. Patient is also diabetic and reports that his glucose has been much higher since being on prednisone for arthritis, since he has been on a slow taper per the [facility]. He has been taking his antiglycemic medications as instructed and states his numbers are fine in the morning but are higher during the day. Discussed likelihood of procedure in the morning with urology and all their questions and concerns were addressed. Admission Exam Per Admitting Provider General: awake, alert, no apparent distress, + fine tremor in hands and jaw Head: Normocephalic, atraumatic ENT: PERRL, EOMI, no pharyngeal exudate, mucous membranes moist Chest: Clear to auscultation, on room air, no adventitious breath sounds Cardiac: Regular rate and rhythm, no murmur, no JVD, normal peripheral pulses, good capillary refill Abdominal: NABS x 4 quadrants, soft, nondistended, mildly tender to palpation in LLQ and suprapubic region, no rebound or guarding : refer to attending physical exam Extremities: Normal inspection, no peripheral edema or erythema, calfs nontender to palpation Psych: Normal mood and affect Neuro: AAO x 3, strength intact bilaterally and rated 5/5, no motor deficits, speech is clear, no peripheral sensory deficits Principal Diagnosis 10 mm LEFT obstructing calculus with moderate hydroureteronephrosis Discharge Exam Constitutional well developed, cooperative and comfortable; no acute distress and not ill appea ring Eyes + anicteric sclerae and PERRL ENMT Ears: no hearing impairment Nose: no external nose abnormality Neck normal visual inspection and trachea midline Respiratory able to speak in complete sentences; no respiratory distress, no labored breathing and no audible wheezes Auscultation: lungs clear to auscultation bilaterally; no wheezes Cardiovascular Extremities: no calf tenderness and no edema Gastrointestinal (Abdomen) Inspection/Auscultation: abdomen normal to inspection and normal bowel sounds Percussion/Palpation: abdomen soft; abdomen nontender and no guarding Musculoskeletal Head/Neck/Chest: normocephalic and head atraumatic Skin cool, dry Neurologic moves all extremities and awake tremor b/l hands Psychiatric Orientation: alert, oriented x 3 and cooperative Affect: + flat affect Genitourinary no CVA tenderness Discharge Data Allergies Allergy/AdvReac Type Severity Reaction Status Date / Time lisinopril Allergy Mild COUGH Verified 07/06/20 14:10 doxazosin AdvReac Mild TIRED Verified 07/06/20 14:10 Consultations 07/06/20 17:18 ED Decision to Admit Stat 07/06/20 20:05 Consult Case Management - Discharge Planning Routine Consult Urology Routine Procedures Performed Operation Date: 07/08/20 09:15 Actual Procedures p Cystoscopy, Ureteroscopy, Laser Lithotripsy, (Left) - Umair Ford MD s and Left Stent Placement(Left) - Umair Ford MD Ordered Studies 07/06/20 14:14 CT abd pelvis oral con only Stat CXR 07/08/20 09:15 FL KUB Routine FL fluoroscopy <1hr Routine Hospital Course (1) Nephrolithiasis: * CTAP with 10 mm obstructing calculus in the left proximal ureter with mo derate left hydroureteronephrosis. * Urology consulted * p Cystoscopy, Ureteroscopy, Laser Lithotripsy, and Left Stent Placement(Left) - Gen Ford MD on 07/08. Stone sent for analysis -- yellow, smooth appear stone per operative report * NAMRATA on admission secondary to obstructing stone * Would ideally have liked to keep patient overnight to continue to monitor sugars and repeat kidney function in AM, however patient requesting to be home with family given recent passing of his sister unexpectedly * --> Cr slightly improved with IVF to 1.98 from 2.22 on admission (baseline 1.4-1.5) * --> Instructed to d/c glimepiride, hold irbesartan at d/c and resume on Friday unless BPs elevated * Given order for BMP on Friday * Continued Flomax, Proscar * Urine cx without infection -- no abx at discharge * To follow up with Urology (2) Benign prostate hyperplasia: * with stone/obstruction * Prior Renal/Bladder US showed bladder wall thickening and evidence of chronic outlet obstruction. Pre-void volume 133mL, post-void volume 84 mL which is not consistent with significant retention. * Continue finasteride 5mg as prescribed TILE ROOFER * Flomax as above (3) T2DM (type 2 diabetes mellitus): * Last A1c was noted to be elevated at 9.8, recheck 9.5 * ISS with Accu-Cheks AC at bedtime * Holding glimepiride and linagliptin per TILE ROOFER meds-there was discussion regarding starting Januvia as an outpatient * Had multiple episodes of hypoglycemia while inpatient (did not require ANY insulin) -- he had been having borderline low sugars in AM at home but never into the 30s and was found walking the halls in AM confused but had not had sugars checked until AM labs, which was low at 33 * Likely that some glimepiride still in his system and we have discontinued this at discharge given NAMRATA and low AM sugars --> also to be given extra 10mg PO prednisone and continue for additional 2 days for stress given long/slow taper for chronic arthritis * Continue linagliptin at discharge * Recommended continuing monitoring sugars at home and follow up with PCP (4) Shabnamtis: * Had taken oral fluconazole last week, continued topical clotrimazole ointment daily -- probably exacerbated by hyperglycemia prior with prednisone use * No issues reported (5) Parkinsons disease: * Continued Sinemet - on low dose due to fatigue -- was recently recommended trial of Tytary as outpatient instead of sinemet. * Follows with Dr. 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 * small tremor obvious on exam * no acute needs * follow up with neurology outpatient as previously scheduled (6) CKD (chronic kidney disease) stage 3, GFR 30-59 ml/min: * with acute kidney injury on admission with Cr. elevated at 2.22 --> baseline appears to be 1.4-1.5 * Continuous IV fluids while inpatient with imprvoement to 1.98 prior to OR for stone treatment * Instructed to hold his irbesartan (on hold while inpatient but did get dose on 07/07 AM) for next 2 days and monitor BPs at home and resume on Friday with repeat BMP * D/c glimepiride as above and will need f/u with PCP (7) Hypertension: * Chronic. Stable. BP 126/79 * HOLDING Irbesartan as above given NAMRATA -- to resume on Friday unless BP elevated (8) Hyperlipidemia: * Cont simvastatin 20 mg daily (9) Arthritis: * Pt is following with the [facility] and was placed on a slow taper of prednisone - 9 mg in Jun, 8 mg July, 7 mg August, 6 mg in September. * positive MITA titer - pt does not recall having a formal diagnosis of rheumatoid arthritis * Continued prednisone but did not initially get stress dose steroids and had episodes of hypoglycemia * Given 10mg prednisone in addition to his taper, started 07/08 and continued for 2 more days Constipation * RESOLVED with miralax/colace and enema DVT ppx: * teds * heparin subq q12H while inpatient and held AM of intervention CODE: DNR/DNI From Home. Discharged home. Total Time Total Time Spent Total Time Spent (In Minutes): 75 Discharge Plan Discharge Items Patient Disposition: Home - Self-Care Reason For Visit: NEPHROLITHIASIS, HYDROURETERONEPHROSIS Discharge Diagnosis: nephrolithiasis Condition on Discharge: Fair Goals: You have been hospitalized for an urgent problem which required surgery. During your stay at [facility], we have made an effort to correct the problem that brought you to the hospital while keeping you as comfortable as possible. Surgery and medications were used to bring your condition under control and your discharge instructions will include directions for any medications you should take after leaving the hospital. Please make sure to fo llow the advice of your surgeon regarding follow up with the surgeon and with your primary care provider. Activity: Resume your previous activity Bathing: No limitations Sexual Activity: When tolerated Exercise/Sports: Gradually increase as tolerated Driving/Machine Use: Resume 1 day after discharge Non-emergency contact: Urologist Call non-emergency contact if: you have any medication questions, your pain is worsening, you have a fever and your temperature is above 101.5 Follow-up/Referrals: Umair Shi MD [Primary Care Provider] - Umair Ford MD [Physician] - Diet: Carb Consistent or DM2 and Heart Healthy Ambulatory Orders: Basic Metabolic Panel (Routine) Timeframe: 2 Days Location: Determined by Patient Ordered By: Karli Smith Attending Provider Instructions: You have been hospitalized and found to have an obstructing kidney stone. Urine was checked and negative for infection. Urology was consulted and you were taken to the OR for stent and lithotripsy for treatment of your stone. This was sent for analysis. You will need follow up with 's office. They will call you Friday for an appointment. Their number is [phone] if you do not hear from them on Friday. You can take Tylenol for pain but should avoid NSAIDs/Ibuprofen. Your creatinine was elevated (kidney function) which is likely from the obstructing stone and has improved with IV fluids and should continue to improve since removal of the obstruction. You have been given lab slips for repeat kidney function testing on Friday. YOU SHOULD HOLD YOUR IRBESARTAN (FOR BLOOD PRESSURE) FOR TOMORROW, 07/09, AND RESUME ON FRIDAY UNLESS BLOOD PRESSURES ELEVATED AT HOME. Regarding low blood sugars (and kidney injury): * You should discontinue your glimepiride at discharge due to risk for kidney injury and repeated low blood sugars. * You will need to follow up with your PCP and continue to monitor your sugars at home daily Given you have been on chronic steroids, it is felt you need a little extra stress dose steroids during this acute illness phase and were given an extra 10mg today and should take an extra 10mg in addition to your taper for the next two days, then continue with 8mg daily and decrease by 1mg monthly as previously directed. Please follow up with your PCP in the next 1-2 weeks to monitor your progress. Please return to them emergency department with any worsening pain, fevers, inability to void or for any other symptoms that are concerning for you. It has been a pleasure being a part of the medical team providing for you while you have been in the hospital. Take care! [employer] Employee Provider Instructions: Please take all medications as prescribed and keep all follow-ups as scheduled. Please call our office at [phone] with any questions, concerns or need to reschedule appointments for any reason. We are happy to assist you. While you have a ureteral stent in place: Some discomfort is normal. Certain movements may trigger pain or a feeling that you need to urinate. You may also feel mild soreness or pressure before or during urination. These symptoms should go away a few days after the stent is removed. Your urine may be slightly pink or red. This is due to bleeding caused by minor irritation from the stent. This may happen on and off while you have the stent, it is not harmful and is to be expected. Medication to help minimize discomfort or bladder spasms, or to prevent infect ion may be prescribed. Take this as directed. Drink plenty of fluids to help flush out your urinary tract. If you go home with a catheter, wash with soapy water and a fresh washcloth twice daily. We recommend mild bar soap such as Dial or Dove. How long will you need a stent? An appointment should already be made for you for stent removal, unless directed otherwise. The stent is often taken out after the blockage in the ureter is treated or the ureter has healed. This may take 1-2 weeks, or longer. If a stent is needed for a longer period of time, it may need to be exchanged every few mo nths. Likely prior to your followup appointment you will be asked to get an X-ray, please complete this the night before or morning of your appointment. When to call [facility] at [phone]: Your urine contains heavy blood clots You are constantly leaking urine Fever of 101F or higher, chills, nausea, or vomiting Your pain is not relieved with medication The end of the stent comes out of your urethra Pending Studies at Discharge: No Stand-Alone Forms: My [employer], Smoking Cessation Medications and DC Order Prescriptions: New tramadol 50 mg tablet 50 mg PO Q6H PRN (Reason: pain) Qty: 20 RF: 0 prednisone 10 mg Tablet 10 mg PO QAM 2 Days Qty: 2 RF: 0 finasteride [Proscar] 5 mg Tablet 5 mg PO QAM 30 Days Qty: 30 RF: 0 Continued carbidopa-levodopa 25-100 mg tablet extended release 1 tab PO BID 30 Days Qty: 60 RF: 2 Tradjenta 5 mg tablet 5 mg PO DAILY Qty: 30 RF: 5 simvastatin 20 mg tablet 20 mg PO DAILY Qty: 90 RF: 1 cholecalciferol (vitamin D3) 50 mcg (2,000 unit) capsule 500 mcg PO DAILY RF: 0 tamsulosin 0.4 mg capsule 0.4 mg PO DAILY Qty: 30 RF: 5 (DME) OneTouch Ultra Blue Test Strip Strip See Rx Instructions .ROUTE .MEDSUPPLY Qty: 100 RF: 3 leflunomide [Arava] 20 mg tablet 20 mg PO DAILY RF: 0 prednisone 10 mg tablet See Rx Instructions .ROUTE .COMPLEX RF: 0 fluconazole 150 mg tablet 150 mg PO Q3D Qty: 2 RF: 0 clotrimazole 1 % cream See Rx Instructions topical BID PRN (Reason: itching) Qty: 15 RF: 0 irbesartan 75 mg tablet 75 mg PO DAILY Qty: 90 RF: 3 aspirin [Aspirin Low Dose] 81 mg tablet,delayed release (DR/EC) 81 mg PO DAILY Qty: 30 RF: 5 vitamin B complex Tablet 1 tab PO DAILY RF: 0 Discontinued glimepiride 4 mg tablet 4 mg PO BID Qty: 180 RF: 3 ibuprofen [Advil] 200 mg tablet 200 mg PO Q6H PRN (Reason: pain) Qty: 120 RF: 5 Discharge Orders: Discharge Order (Routine); Ordered 07/08/20 Ordered By: Karli Rosa Admission Data Admit Date/Time: 07/06/20 17:39 Attending Provider: Teresa Woodruff Admit Provider: Joselito Herrmann Primary Care Provider: Umair Shi Other Providers: Joselito Herrmann ; Harsh Jerome Other Interventions: Discharge Summary Assessment (RN) Last Done: 07/08/20 14:13 Supervising Physician Co-Signing Physician Notes PA Supervision Note: I personally saw and examined the patient. I verified all keith points and agree with SHAMA Rosa with the following exceptions and/or additions: Pt doing well, had stent placed, lithotripsy. No pain, no N/V. No CP/SOB. Wants to go home. VSS RRR no mgr CTAB no wcr Abd soft NT ND +BS Ext no edema Stable for dc ot home hold ARB, check BMP in a few days f/u with PCP and Urol for stent removal Coding Level of Care Code D/C Day Management >30 mins Diagnoses Nephrolithiasis N20.0 Benign prostate hyperplasia N40.0 T2DM (type 2 diabetes mellitus) E11.9 Balanitis N48.1 Parkinsons disease G20 CKD (chronic kidney disease) stage 3, GFR 30-59 ml/min N18.3 Hypertension I10 Hyperlipidemia E78.5 Arthritis M19.90
[2020-07-09] MEDS ORDERED: predniSONE 10 MG TABLET PO SCH (09:00)
[2020-07-10] MEDS ORDERED: predniSONE 1 MG TAB PO SCH (09:00)
[2020-08-10] MEDS ORDERED: predniSONE 1 MG TAB PO SCH (09:00)
[2020-09-09] MEDS ORDERED: predniSONE 1 MG TAB PO SCH (09:00)
== END 2020-07-08 15:38 | disposition home or self-care (01) ==
LOC: ED 13:35 → SUATTDRO 17:39 → INTOOBSV 17:39 → 3W 17:39

== ENCOUNTER 2022-11-09 07:59 | Observation (INO) ==
[2022-11-09] MEDS ORDERED: SODIUM CHLORIDE 0.9% 1000ML 1,000 ML IV ONE (08:39)
--- NOTE | 2022-11-09 08:43 | Emergency Department Note ---
Impression & Plan Malaise and fatigue, Weakness, Elevated troponin ED Provider Note Name: ERICA WALLACE Age: 82 Sex: M Arrives Via: Ambulance Informant: Patient ED Provider: Raul Pascual MD Chief Complaint: Weakness Impression: As per impression above Medical Decision Makin-year-old gentleman arrives for evaluation of worsening weakness over the last 12 to 24 hours since he was mowing yesterday. On examination he is no severe distress though does appear quite tired. Is given some IV fluids appears bit better. 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 Laboratory work-up is relatively benign though note he has an elevated troponin. Is uncertain etiology his EKG looks fine. He had no actual chest pain. It may just be due to heat exhaustion. His ESR is also elevated but he has a history of PMR. After discussion with patient's family they are comfortable with hospitalization and hospitalist was consulted for further management. At this point I would not start any anticoagulants as EKG looks good he is no clear ACS findings other than this mild troponin elevation. Procalcitonin is 0 his white count is normal and he is afebrile I do not feel this is consistent with sepsis or infectious etiology quite at this time. Hos pitalist consulted for further management. Of note Lyme, COVID, influenza testing is all negative Prior Medical Record and Triage/Nursing Notes reviewed by Me External chart reviewed by me Differentials:Infection, dehydration, metabolic abnormality, hypo/hyperg lycemia, electrolyte disturbance, anemia, hypoxia, cardiac sources, intracerebral event, toxicologic, neurologic, as well as other pathologies. Vital Signs: reviewed and remarkable for no significant abnormalities Interventions: Normal saline bolus 1 L IV Labs:Reviewed and remarkable for elevated ESR and elevated troponin. Otherwise unremarkable CBC, BMP, LFTs, procalcitonin amongst others reviewed Imaging:As per my informal interpretation. CT of the head without contrast reveals no acute mass effect nor bleed. 1 view chest x-ray reveals no acute pneumonia, pneumothorax, effusion as per my interpretation. EKG: as per my interpretation. Indication weakness. Normal sinus rhythm at 74 bpm with an incomplete right bundle branch block. There is no ectopy nor ischemia. When compared to EKG of July 06, 2020 there is no significant change other than V1 V2 lead placement likely a bit different. QTc is 457 Cardiac/Tele Monitoring: Cardiac Monitoring: An Order was placed for continuous cardiac monitoring. The monitor shows a rate of 70 with a normal sinus rhythm. Consults:Dr Mahi SUN Hospitalist Plan: Disposition: Hospitalization Condition: Good History of Present Illness:82-year-old gentleman arrives for evaluation of weakness. Patient notes he was feeling well yesterday and able to mow his lawn including push mowing. Yesterday afternoon he was starting to feel more weak and tired. noticed he seemed lost diaphoretic and having chills. He has had no appetite since yesterday. Over the last few weeks has had on and off headaches but denies any specific headache right now. He was so weak last evening that he stumbled in the bathroom twice that did not fall and hit his head at any time. He denies any headache or neck pain. Patient states that this morning when he woke up he was just so weak he could not get out of bed. He did not lose strength even sit up very well. Arrives via EMS for further evaluation. No medications prior to arrival. Patient does have a history of polymyalgia rheumatica but states he has not had to be on steroids for quite some time is not having any specific joint pains. He also has a history of Parkinson's no change in medications. Denies any fevers, nausea, vomiting, abdominal pain, back pain, flank pain, urinary burning, penile discharge, leg swelling, chest pain, shortness of breath or other concerning signs or symptoms. That said notes he complained of some mild chest pain earlier in the day. Past History:See Below Home Medications:See Below Allergies:See Below Vitals:Blood Pressure: 160/73, Pulse 72, RR 19, T 36.6C, O2 98% on RA Physical Exam: GENERAL: Patient is tired appearing and in minimal distress. Weakness even trying to get him to sit up. EYES: No scleral icterus, unremarkable pupils. ENT: Mucous membranes dry, no nasal congestion. NECK: No masses appreciated, nomeningismus, trachea is midline. RESPIRATORY: No dyspnea. Clear to auscultation and equal bilaterally. No wheeze, no rhonchi. CARDIOVASCULAR: Regular rate and rhythm.No murmurs, rubs, gallops appreciated. GASTROINTESTINAL: Abdomen soft, non-tender, no peritonitis.Bowel sounds positive.No masses appreciated. EXTREMITIES: Normal motion all extremities, no cyanosis, no edema. NEUROLOGIC: Alert and oriented, no focal neurologic deficit appreciated. SKIN: No rash, no jaundice, no diaphoresis. PSYCH: Appropriate GCS: 15 ED Course: Times/Reassessments: Patient does appear significantly improved after IV fluids discussion with family plan is for hospitalization and further monitoring. Raul Pascual MD Past Med/Surg History Medical History Acute dehydration Arm pain Dental abscess Diffuse abdominal pain Encounter for pre-operative examination Muscle pain, cervical Myalgia and myositis Nephrolithiasis On prednisone therapy Seizures T2DM (type 2 diabetes mellitus) Ureteral stone Surgical History History of colonoscopy History of nasal surgery Family History Mother Myocardial infarction Coronary heart disease Father Hemorrhage Other Family history non-contributory Denies family history of Ovarian cancer Prostate cancer Breast cancer Colorectal cancer Social History Smoking Status: Never smoker Second Hand Exposure: No; Do You Dip or Chew Tobacco: No; Hx Alcohol Use: No Hx Substance Use: No Preferred Language: Greenlandic Communication Ability: Effective Visual Impairment: No Limitations Hearing Ability: Use of Hearing Aid Nozzle Operator Required: No Beliefs That Will Affect Care: None marital status: Current Living Situation: Spouse current occupational status: retired Feels Safe at Home: Yes Childhood Exposure to Second-Hand Smoke: No Diet: regular caffeine: Yes during the past year weight has: remained stable Dental Care, Regularly: Yes Physical Activity Frequency: 1-2 Times per Week Physical Activity Frequency Comment: walks Seatbelt Use: always Sunscreen Use: No Assistive Devices: None Allergies Allergies Allergy/AdvReac Type Severity Reaction Status Date / Time lisinopril Allergy Mild COUGH Verified 11/09/22 11:43 doxazosin AdvReac Mild TIRED Verified 11/09/22 11:43 Home Meds Home Medications Medication Instructions Recorded Confirmed vitamin B complex 1 tab PO DAILY 07/06/20 11/09/22 cholecalciferol (vitamin D3) 25 25 mcg PO DAILY 08/16/20 11/09/22 mcg (1,000 unit) capsule psyllium husk 0.52 gram capsule 0.52 g PO DAILY 03/07/21 11/09/22 (Daily Fiber) blood-glucose meter (iStoryTimeTouch #1 ea 02/25/22 08/26/22 Verio Flex Meter) lancets (iStoryTimeTouch UltraSoft #100 ea 02/25/22 08/26/22 Lancets) lancing device with lancets kit #1 ea 02/25/22 08/26/22 (Nuvilex Delica Lancing Device kit) Previous Rx's Medication Instructions Recorded aspirin 81 mg tablet,delayed 81 mg PO DAILY #30 tabs 11/18/18 release (Gordo Low Dose Aspirin) simvastatin 20 mg tablet 20 mg PO DAILY #100 tabs 12/28/21 prednisone 5 mg tablet 5 mg PO DAILY PRN low back pain 02/25/22 #30 tabs carbidopa 25 mg-levodopa 100 mg 2 tab PO TID 90 days #540 tabs 07/10/22 tablet (Sinemet) blood sugar diagnostic #100 ea 07/18/22 sitagliptin phosphate 50 mg tablet 50 mg PO DAILY #30 tabs 07/29/22 (Januvia) tamsulosin 0.4 mg capsule 0.4 mg PO DAILY #30 caps 09/04/22 glimepiride 4 mg tablet 4 mg PO BID #180 tabs 10/24/22 finasteride 5 mg tablet 5 mg PO DAILY #30 tabs 11/04/22 Results & Data (ED) Vital Signs Vital Signs - 24 hr 11/09/22 08:13 11/09/22 08:21 11/09/22 08:34 Temperature 36.6 C Temperature Source Oral Pulse Rate 75 76 72 Pulse Rate from SpO2 Sensor 75 Respiratory Rate 18 19 Respiratory Effort / Characteristics Non-Labored Spontaneous Respiratory Depth Normal Respiratory Pattern Regular Blood Pressure 160/73 H 160/73 H Blood Pressure Mean 102 102 Blood Pressure Position Lying Pulse Oximetry 99 98 Oxygen Delivery Method Room Air Room Air Sepsis Recent Fever Within 48 Hours No Sepsis New/Unexplained Change in Mental Status Yes Sepsis Action Taken by Nursing No Action Required 11/09/22 08:30 11/09/22 08:30 11/09/22 09:00 Temperature Temperature Source Pulse Rate 70 71 Pulse Rate from SpO2 Sensor 70 71 Respiratory Rate 15 18 Respiratory Effort / Characteristics Respiratory Depth Respiratory Pattern Blood Pressure 126/71 Blood Pressure Mean 96 Blood Pressure Position Pulse Oximetry 100 99 Oxygen Delivery Method Sepsis Recent Fever Within 48 Hours Sepsis New/Unexplained Change in Mental Status Sepsis Action Taken by Nursing 11/09/22 09:03 11/09/22 09:03 11/09/22 09:30 Temperature Temperature Source Pulse Rate 73 Pulse Rate from SpO2 Sensor 70 Respiratory Rate 19 Respiratory Effort / Characteristics Respiratory Depth Respiratory Pattern Blood Pressure 144/70 H 135/69 Blood Pressure Mean 88 91 Blood Pressure Position Pulse Oximetry 97 Oxygen Delivery Method Sepsis Recent Fever Within 48 Hours Sepsis New/Unexplained Change in Mental Status Sepsis Action Taken by Nursing 11/09/22 10:30 11/09/22 10:30 Temperature Temperature Source Pulse Rate 73 Pulse Rate from SpO2 Sensor 71 71 Respiratory Rate 14 22 Respiratory Effort / Characteristics Respiratory Depth Respiratory Pattern Blood Pressure 135/78 135/78 Blood Pressure Mean 104 97 Blood Pressure Position Pulse Oximetry 99 97 Oxygen Delivery Method Room Air Sepsis Recent Fever Within 48 Hours Sepsis New/Unexplained Change in Mental Status Sepsis Action Taken by Nursing Laboratory Data 11/09/22 08:19 11/09/22 08:19 Lab Results 11/09/22 11/09/22 11/09/22 Range/Units 08:15 08:19 08:19 WBC (4.8-10.8) K/ul RBC (4.70-6.10) M/uL Hgb (14.0-18.0) g/dl Hct (42.0-52.0) % MCV (80.0-100.0) fL MCH (25.0-34.0) pg MCHC (32.0-36.0) g/dL RDW Std Deviation (36.4-46.3) fL RDW Coeff of [place] (11.5-14.5) % Plt Count (130-400) K/uL MPV (9.4-12.4) fL Immature Gran % (Auto) % Neut % (Auto) % Lymph % (Auto) % [place] % (Auto) % Eos % (Auto) % Baso % (Auto) % Neut # (Auto) (1.40-6.50) K/uL Lymph # (Auto) (1.2-3.4) K/uL [place] # (Auto) (0.11-0.59) K/uL Eos # (Auto) (0-0.50) K/uL Baso # (Auto) (0-0.2) K/uL Immature Gran # (Auto) (0.01-0.20) K/uL ESR (0-20) mm/hr Sodium 136 (136-145) mmol/L Potassium 4.6 (3.5-5.1) mmol/L Chloride 101 (98-107) mmol/L Carbon Dioxide 25 (21-32) mmol/L Anion Gap 10 (3-11) BUN 19 (6-23) mg/dl Creatinine 1.24 (0.6-1.4) mg/dl Est Cr Clr Drug Dosing 45.1 ml/min Est GFR ( Amer) 61.9 ml/min Est GFR (Non-Af Amer) 53.4 ml/min BUN/Creatinine Ratio 15.3 (10-20) Glucose 88 (70-99(Fasting)) mg/dl POC Glucose 88 (70-99) mg/dl Lactate (0.4-2.0) mmol/L Calcium 8.5 L (8.6-10.3) mg/dl Magnesium 1.9 (1.7-2.4) mg/dl Total Bilirubin 0.7 (0.2-1.0) mg/dl Direct Bilirubin TNP AST 13 (13-39) U/L ALT 9 (7-52) U/L Alkaline Phosphatase 81 (34-104) U/L Total Creatine Kinase 137 (30-223) U/L Troponin I High Sens 38.4 H (0-20) pg/ml Total Protein 6.9 (6.0-8.3) gm/dl Albumin 3.7 (3.4-5.0) gm/dl Procalcitonin < 0.05 (0-0.5) ng/ml Urine Color Urine Appearance (Clear) Urine pH (4.5-7.5) Ur Specific [place] (1.000-1.030) Urine Protein (Negative) Urine Glucose (UA) (Negative) Urine Ketones (Negative) Urine Blood (Negative) Urine Nitrite (Negative) Urine Bilirubin (Negative) Urine Urobilinogen (Negative) Ur Leukocyte Esterase (Negative) Urine WBC (Auto) (0-5) /hpf Urine RBC (Auto) (0-4) /hpf U Hyaline Cast (Auto) (0-5) /lpf U Epithel Cells (Auto) (0-5) /lpf Urine Bacteria (Auto) (Negative) Lyme Disease IgG Ab Negative (Negative) Lyme Disease IgM Ab Negative (Negative) SARS-CoV-2 (PCR) (Negative) Influenza Type A (PCR) (Neg) Influenza Type B (PCR) (Neg) RSV (RT-PCR) (Neg) 11/09/22 11/09/22 11/09/22 Range/Units 08:19 08:19 08:19 WBC 10.34 (4.8-10.8) K/ul RBC 4.32 L (4.70-6.10) M/uL Hgb 12.8 L (14.0-18.0) g/dl Hct 36.7 L (42.0-52.0) % MCV 85.0 (80.0-100.0) fL MCH 29.6 (25.0-34.0) pg MCHC 34.9 (32.0-36.0) g/dL RDW Std Deviation 39.1 (36.4-46.3) fL RDW Coeff of [place] 12.8 (11.5-14.5) % Plt Count 221 (130-400) K/uL MPV 9.9 (9.4-12.4) fL Immature Gran % (Auto) 0.7 % Neut % (Auto) 83.4 % Lymph % (Auto) 7.3 % [place] % (Auto) 8.1 % Eos % (Auto) 0.2 % Baso % (Auto) 0.3 % Neut # (Auto) 8.63 H (1.40-6.50) K/uL Lymph # (Auto) 0.75 L (1.2-3.4) K/uL [place] # (Auto) 0.84 H (0.11-0.59) K/uL Eos # (Auto) 0.02 (0-0.50) K/uL Baso # (Auto) 0.03 (0-0.2) K/uL Immature Gran # (Auto) 0.07 (0.01-0.20) K/uL ESR 52 H (0-20) mm/hr Sodium (136-145) mmol/L Potassium (3.5-5.1) mmol/L Chloride (98-107) mmol/L Carbon Dioxide (21-32) mmol/L Anion Gap (3-11) BUN (6-23) mg/dl Creatinine (0.6-1.4) mg/dl Est Cr Clr Drug Dosing ml/min Est GFR ( Amer) ml/min Est GFR (Non-Af Amer) ml/min BUN/Creatinine Ratio (10-20) Glucose (70-99(Fasting)) mg/dl POC Glucose (70-99) mg/dl Lactate (0.4-2.0) mmol/L Calcium (8.6-10.3) mg/dl Magnesium (1.7-2.4) mg/dl Total Bilirubin (0.2-1.0) mg/dl Direct Bilirubin AST (13-39) U/L ALT (7-52) U/L Alkaline Phosphatase (34-104) U/L Total Creatine Kinase (30-223) U/L Troponin I High Sens (0-20) pg/ml Total Protein (6.0-8.3) gm/dl Albumin (3.4-5.0) gm/dl Procalcitonin Cancelled (0-0.5) ng/ml Urine Color Urine Appearance (Clear) Urine pH (4.5-7.5) Ur Specific [place] (1.000-1.030) Urine Protein (Negative) Urine Glucose (UA) (Negative) Urine Ketones (Negative) Urine Blood (Negative) Urine Nitrite (Negative) Urine Bilirubin (Negative) Urine Urobilinogen (Negative) Ur Leukocyte Esterase (Negative) Urine WBC (Auto) (0-5) /hpf Urine RBC (Auto) (0-4) /hpf U Hyaline Cast (Auto) (0-5) /lpf U Epithel Cells (Auto) (0-5) /lpf Urine Bacteria (Auto) (Negative) Lyme Disease IgG Ab (Negative) Lyme Disease IgM Ab (Negative) SARS-CoV-2 (PCR) (Negative) Influenza Type A (PCR) (Neg) Influenza Type B (PCR) (Neg) RSV (RT-PCR) (Neg) 11/09/22 11/09/22 11/09/22 Range/Units 09:03 09:06 09:30 WBC (4.8-10.8) K/ul RBC (4.70-6.10) M/uL Hgb (14.0-18.0) g/dl Hct (42.0-52.0) % MCV (80.0-100.0) fL MCH (25.0-34.0) pg MCHC (32.0-36.0) g/dL RDW Std Deviation (36.4-46.3) fL RDW Coeff of [place] (11.5-14.5) % Plt Count (130-400) K/uL MPV (9.4-12.4) fL Immature Gran % (Auto) % Neut % (Auto) % Lymph % (Auto) % [place] % (Auto) % Eos % (Auto) % Baso % (Auto) % Neut # (Auto) (1.40-6.50) K/uL Lymph # (Auto) (1.2-3.4) K/uL [place] # (Auto) (0.11-0.59) K/uL Eos # (Auto) (0-0.50) K/uL Baso # (Auto) (0-0.2) K/uL Immature Gran # (Auto) (0.01-0.20) K/uL ESR (0-20) mm/hr Sodium (136-145) mmol/L Potassium (3.5-5.1) mmol/L Chloride (98-107) mmol/L Carbon Dioxide (21-32) mmol/L Anion Gap (3-11) BUN (6-23) mg/dl Creatinine (0.6-1.4) mg/dl Est Cr Clr Drug Dosing ml/min Est GFR ( Amer) ml/min Est GFR (Non-Af Amer) ml/min BUN/Creatinine Ratio (10-20) Glucose (70-99(Fasting)) mg/dl POC Glucose (70-99) mg/dl Lactate 1.2 (0.4-2.0) mmol/L Calcium (8.6-10.3) mg/dl Magnesium (1.7-2.4) mg/dl Total Bilirubin (0.2-1.0) mg/dl Direct Bilirubin 0.2 AST (13-39) U/L ALT (7-52) U/L Alkaline Phosphatase (34-104) U/L Total Creatine Kinase (30-223) U/L Troponin I High Sens (0-20) pg/ml Total Protein (6.0-8.3) gm/dl Albumin (3.4-5.0) gm/dl Procalcitonin (0-0.5) ng/ml Urine Color Urine Appearance (Clear) Urine pH (4.5-7.5) Ur Specific [place] (1.000-1.030) Urine Protein (Negative) Urine Glucose (UA) (Negative) Urine Ketones (Negative) Urine Blood (Negative) Urine Nitrite (Negative) Urine Bilirubin (Negative) Urine Urobilinogen (Negative) Ur Leukocyte Esterase (Negative) Urine WBC (Auto) (0-5) /hpf Urine RBC (Auto) (0-4) /hpf U Hyaline Cast (Auto) (0-5) /lpf U Epithel Cells (Auto) (0-5) /lpf Urine Bacteria (Auto) (Negative) Lyme Disease IgG Ab (Negative) Lyme Disease IgM Ab (Negative) SARS-CoV-2 (PCR) NEGATIVE (Negative) Influenza Type A (PCR) Negative (Neg) Influenza Type B (PCR) Negative (Neg) RSV (RT-PCR) Negative (Neg) 11/09/22 11/09/22 11/09/22 Range/Units 10:39 11:09 11:39 WBC (4.8-10.8) K/ul RBC (4.70-6.10) M/uL Hgb (14.0-18.0) g/dl Hct (42.0-52.0) % MCV (80.0-100.0) fL MCH (25.0-34.0) pg MCHC (32.0-36.0) g/dL RDW Std Deviation (36.4-46.3) fL RDW Coeff of [place] (11.5-14.5) % Plt Count (130-400) K/uL MPV (9.4-12.4) fL Immature Gran % (Auto) % Neut % (Auto) % Lymph % (Auto) % [place] % (Auto) % Eos % (Auto) % Baso % (Auto) % Neut # (Auto) (1.40-6.50) K/uL Lymph # (Auto) (1.2-3.4) K/uL [place] # (Auto) (0.11-0.59) K/uL Eos # (Auto) (0-0.50) K/uL Baso # (Auto) (0-0.2) K/uL Immature Gran # (Auto) (0.01-0.20) K/uL ESR (0-20) mm/hr Sodium (136-145) mmol/L Potassium (3.5-5.1) mmol/L Chloride (98-107) mmol/L Carbon Dioxide (21-32) mmol/L Anion Gap (3-11) BUN (6-23) mg/dl Creatinine (0.6-1.4) mg/dl Est Cr Clr Drug Dosing ml/min Est GFR ( Amer) ml/min Est GFR (Non-Af Amer) ml/min BUN/Creatinine Ratio (10-20) Glucose (70-99(Fasting)) mg/dl POC Glucose (70-99) mg/dl Lactate (0.4-2.0) mmol/L Calcium (8.6-10.3) mg/dl Magnesium (1.7-2.4) mg/dl Total Bilirubin (0.2-1.0) mg/dl Direct Bilirubin AST (13-39) U/L ALT (7-52) U/L Alkaline Phosphatase (34-104) U/L Total Creatine Kinase (30-223) U/L Troponin I High Sens Cancelled 37.5 H (0-20) pg/ml Total Protein (6.0-8.3) gm/dl Albumin (3.4-5.0) gm/dl Procalcitonin (0-0.5) ng/ml Urine Color Yellow Urine Appearance Clear (Clear) Urine pH 6.0 (4.5-7.5) Ur Specific [place] 1.018 (1.000-1.030) Urine Protein Trace H (Negative) Urine Glucose (UA) Negative (Negative) Urine Ketones Trace H (Negative) Urine Blood 3+ H (Negative) Urine Nitrite Negative (Negative) Urine Bilirubin Negative (Negative) Urine Urobilinogen Negative (Negative) Ur Leukocyte Esterase Negative (Negative) Urine WBC (Auto) 1-5 (0-5) /hpf Urine RBC (Auto) >30 H (0-4) /hpf U Hyaline Cast (Auto) 0 (0-5) /lpf U Epithel Cells (Auto) 0-5 (0-5) /lpf Urine Bacteria (Auto) Negative (Negative) Lyme Disease IgG Ab (Negative) Lyme Disease IgM Ab (Negative) SARS-CoV-2 (PCR) (Negative) Influenza Type A (PCR) (Neg) Influenza Type B (PCR) (Neg) RSV (RT-PCR) (Neg) Administered Medications Miscellaneous (Carbohydrates For Hypoglycemia ) 15 - 30 gm PO UD PRN PRN Reason: Hypoglycemia Protocol Stop: 12/09/22 14:50 Last Admin: 11/09/22 14:54 Dose: 30 gm Documented By: Admin: 11/09/22 14:25 Dose: 15 gm Documented By: MIO Discontinued Medications Carbidopa/Levodopa (Carbidopa/Levodopa 25/100mg Tab) 2 tab PO ONE STA Stop: 11/09/22 11:49 Last Admin: 11/09/22 12:41 Dose: 2 tab Documented By: QGV Sodium Chloride (Nss 1000ml) 1,000 mls @ 999 mls/hr IV .Q1H1M ONE Stop: 11/09/22 09:39 Last Infusion: 11/09/22 11:28 Dose: 0 mls/hr Documented By: Admin: 11/09/22 09:28 Dose: 999 mls/hr Documented By: MMG Imaging Data Radiologist's Impression: Head CT 11/09/22 08:[address] DOSE: 625.80 mGy.cm HISTORY: Confusion. weakness, headache TECHNIQUE: Multiaxial CT images of the head were performed without the use of intravenous contrast. Automated exposure control was utilized for this study. A dose lowering technique was utilized adhering to the principles of ALARA. Comparison: Head CT 09/01/2018. Findings: The paranasal sinuses and mastoid air cells are clear. The calvarium and skull base are intact. There is no mass, hematoma, midline shift, acute infarct. White matter hypodensity is nonspecific but suggestive of microvascular ischemic change. The ventricles and sulci demonstrate mild age-related involutional changes. 1 cm anterior nasal septal defect is again noted. Impression: No acute intracranial abnormality. Atrophy and microvascular ischemic changes. ACT 112: Negative or not required by law. Electronically signed by: Dusty Solis M.D. 11/09/2022 9:40 AM Chest X-Ray 11/09/22 08:39 XR chest 1V portable HISTORY: weakness COMPARISON: Chest 07/06/2020. FINDINGS: The lungs are clear. Cardiac silhouette is normal in size. No pleural effusions. No pneumothorax. IMPRESSION: No acute process. ACT 112: Negative or not required by law. Electronically signed by: Dusty Solis M.D. 11/09/2022 9:25 AM Abdomen/Pelvis CT 11/09/22 11:[address] WITHOUT CONTRAST CT DOSE: 993.59 mGy.cm HISTORY: Fall. hematuria ?kidney stones TECHNIQUE: Multiaxial CT images of the abdomen and pelvis were performed without contrast. A dose lowering technique was utilized adhering to the principles of ALARA. COMPARISON STUDY: Abdomen and pelvis CT 07/06/2020. FINDINGS: The lung bases are clear. No pneumoperitoneum. No pneumatosis. No acute fractures identified. The unenhanced liver, gallbladder, pancreas, spleen, and adrenal glands unremarkable. No retroperitoneal lymphadenopathy. Mild calcified plaque within the normal caliber abdominal aorta. No pelvic lymphadenopathy or pelvic free fluid. The prostate gland is mildly enlarged. No bladder wall thickening. Bilateral peripelvic renal cysts are noted. There are 2 stones within the left kidney with the largest measuring 1.3 cm. No right renal calculi. No ureteral calculi. No hydronephrosis. Suboptimal evaluation for bowel pathology due to the lack of intravenous and oral contrast. However, there is no definite bowel wall thickening or obstruction. Normal appendix. A few colonic diverticula. No evidence for acute diverticulitis. IMPRESSION: 1. Left-sided nephrolithiasis. No ureteral stones. No hydronephrosis. 2. No definite bowel wall thickening or obstruction. 3. Additional findings as described above. ACT 112: Negative or not required by law. Electronically signed by: Dusty Solis M.D. 11/09/2022 1:05 PM Discharge Plan Visit Data Chief Complaint: Weakness ED Provider: Raul Pascual Discharge Problem: Malaise and fatigue, Weakness, Elevated troponin Patient Disposition: Admitted As Inpatient Discharge Instructions Interventions: ED Discharge Assessment Last Done: 11/09/22 12:56
[2022-11-09 08:59] LABS: Basophils # (auto) 0.03 K/uL (0-0.2); Basophils % (auto) 0.3 %; Eosinophils # (auto) 0.02 K/uL (0-0.50); Eosinophils % (auto) 0.2 %; Hematocrit (blood only) 36.7 % (42.0-52.0); Hemoglobin 12.8 g/dl (14.0-18.0); Immature Granulocytes # (auto) 0.07 K/uL (0.01-0.20); Immature Granulocytes % (auto) 0.7 %; Lymphocytes # (auto) 0.75 K/uL (1.2-3.4); Lymphocytes % (auto) 7.3 %; Mean Corpuscular Hemoglobin 29.6 pg (25.0-34.0); Mean Corpuscular Hgb Conc 34.9 g/dL (32.0-36.0); Mean Platelet Volume 9.9 fL (9.4-12.4); Monocytes # (auto) 0.84 K/uL (0.11-0.59); Monocytes % (auto) 8.1 %; Neutrophils # (auto) 8.63 K/uL (1.40-6.50); Neutrophils % (auto) 83.4 %; Platelet Count 221 K/uL (130-400); RDW Coefficient of Variation 12.8 % (11.5-14.5); RDW Standard Deviation 39.1 fL (36.4-46.3); Red Blood Count 4.32 M/uL (4.70-6.10); White Blood Count 10.34 K/ul (4.8-10.8)
[2022-11-09 09:26] LABS: Alanine Aminotransferase 9 U/L (7-52); Albumin Level 3.7 gm/dl (3.4-5.0); Alkaline Phosphatase 81 U/L (34-104); Anion Gap 10 (3-11); Aspartate Aminotransferase 13 U/L (13-39); BUN Creatinine Ratio 15.3 (10-20); Bilirubin,Total 0.7 mg/dl (0.2-1.0); Blood Urea Nitrogen 19 mg/dl (6-23); Calcium 8.5 mg/dl (8.6-10.3); Carbon Dioxide 25 mmol/L (21-32); Chloride 101 mmol/L (98-107); Creatine Kinase 137 U/L (30-223); Creatinine Clr Calc Pharmacy 45.1 ml/min; Est GFR (African American) 61.9 ml/min; Est GFR (Non-African American) 53.4 ml/min; Glucose 88 mg/dl (70-99(Fasting)); Magnesium 1.9 mg/dl (1.7-2.4); Potassium 4.6 mmol/L (3.5-5.1); Sodium 136 mmol/L (136-145); Total Protein 6.9 gm/dl (6.0-8.3); Troponin I High Sensitivity 38.4 pg/ml (0-20)
--- NOTE | 2022-11-09 09:27 | XRay Report ---
XR chest 1V portable HISTORY: weakness COMPARISON: Chest 07/06/2020. FINDINGS: The lungs are clear. Cardiac silhouette is normal in size. No pleural effusions. No pneumot horax. IMPRESSION: No acute process. ACT 112: Negative or not required by law. Electronically signed by: Dusty Solis M.D. 11/09/2022 9:25 AM
[2022-11-09 09:32] LABS: Procalcitonin < 0.05 ng/ml (0-0.5)
[2022-11-09 09:38] LABS: Lyme Ab IgG w/WB Rflx Negative (Negative); Lyme Ab IgM w/WB Rflx Negative (Negative)
--- NOTE | 2022-11-09 09:42 | CT Scan Report ---
HEAD CT NONCONTRAST CT DOSE: 625.80 mGy.cm HISTORY: Confusion. weakness, headache TECHNIQUE: Multiaxial CT images of the head were performed without the use of intravenous contrast. A utomated exposure control was utilized for this study. A dose lowering technique was utilized adheri ng to the principles of ALARA. Comparison: Head CT 09/01/2018. Findings: The paranasal sinuses and mastoid air cells are clear. The calvarium and skull base are int act. There is no mass, hematoma, midline shift, acute infarct. White matter hypodensity is nonspecifi c but suggestive of microvascular ischemic change. The ventricles and sulci demonstrate mild age-rela esha involutional changes. 1 cm anterior nasal septal defect is again noted. Impression: No acute intracranial abnormality. Atrophy and microvascular ischemic changes. ACT 112: Negative or not required by law. Electronically signed by: Dusty Solis M.D. 11/09/2022 9:40 AM
[2022-11-09 10:34] LABS: Influenza A virus by PCR Negative (Neg); Influenza B virus by PCR Negative (Neg); RSV by PCR Negative (Neg); SARS CoV2 RNA(COVID-19) Ceph NEGATIVE (Negative)
--- NOTE | 2022-11-09 10:39 | History & Physical Report ---
Date of Service November 09, 2022 Assessment & Plan (1) Generalized weakness: Plan: Broad differential on admission and also unclear exact timeline of progression History fits with systemic metabolic encephalopathy however rather than specific focal brain etiology therefore do not feel a stroke workup is warranted Differential includes: UTI - no specific symptoms but also only abnormality from lab work was hematuria not otherwise explained on CT A/P. Will treat with ceftriaxone pending urine/blood cultures. Hypoglycemia - taking sulfourea and despite self decreasing dose still had a hypoglycemic episode here, suspect no longer being on steroids has meant he has needed less glucose control and his diabetes medication do not appear to have been accordingly adjusted Constipation - per history this is more of a chronic problem and not progressing however generally poor history, will continue to monitor BM here with MiraLAX PRN Progression of Parkisnons - patient was skipping his evening sinemet this week possible contributing Polymyalgia rheumatica - stopped steroids at the beginning of this year and progressively weaker since then, difficult to explain his confusion with this diagnosis but if no UTI on culture would consider going back on prednisone 20mg (2) Hypertension: Plan: Hold propranolol and monitor (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: Plan: Hold diabetes medications and monitor (4) Parkinsons disease: Plan: Continue Sinemet (5) Malaise and fatigue: (6) Elevated troponin: (7) Microscopic hematuria: (8) UTI (urinary tract infection): (9) Polymyalgia rheumatica: (10) Benign prostate hyperplasia: Plan: Continue tamsulosin and finasteride (11) Constipation: (12) Hypoglycemia: Plan VTE Prophyalxis - low risk Diet - regular Disposition - observation to med/surg Admission and Anticipated Discharge Date Admission Date: November 09, 2022 History of Present Illness Primary Care Provider: Gen Shi MD Ronnell Dasilva is an 82 year old male with Parkinson's who presents to the ER with weakness, confusion and difficulty ambulating for the last 2 days. On further discussion with his and daughter however not clear on timeline as he has also been having progressive decline since the start of the year and more pronounced in the last 2 weeks and especially two days. He noticed it a lot after mowing the lawn yesterday. Significantly decreased strength this morning and difficulty getting out of bed with diaphoresis. Crawling around on the floor confused yesterday with two falls, one of which he hit his head. His is concerned about him having kidney stones as she thinks he is similar to when he previous had kidney stones in June 2020 (although on review of that admission he was having abdominal pain to which he denies today). They have been making multiple adjustments to his medications as they were concerned he was having side effects from them. He reduced his glimepiride to just in the morning. Stopped taking his night time Sinemet on Friday to and stopped simvastatin. He denies any respiratory, GI or urinary infective symptoms. No headache. He has a history of polymyalgia rheumatica and under rheumatology in [place]. He reports being taken off prednisone at the beginning of the year and has noticed significant decline off this and noticed significant improvement while he was on prednisone. Allergies Allergy/AdvReac Type Severity Reaction Status Date / Time lisinopril Allergy Mild COUGH Verified 11/09/22 11:43 doxazosin AdvReac Mild TIRED Verified 11/09/22 11:43 Home Medications Medication Instructions Recorded Confirmed Type aspirin 81 mg tablet,delayed 81 mg PO DAILY #30 tabs 11/18/18 11/09/22 Rx release (Gordo Low Dose Aspirin) vitamin B complex 1 tab PO DAILY 07/06/20 11/09/22 History cholecalciferol (vitamin D3) 25 25 mcg PO DAILY 08/16/20 11/09/22 History mcg (1,000 unit) capsule psyllium husk 0.52 gram capsule 0.52 g PO DAILY 03/07/21 11/09/22 History (Daily Fiber) simvastatin 20 mg tablet 20 mg PO DAILY #100 tabs 12/28/21 11/09/22 Rx blood-glucose meter (OneTouch #1 ea 02/25/22 08/26/22 History Verio Flex Meter) lancets (OneTouch UltraSoft #100 ea 02/25/22 08/26/22 History Lancets) lancing device with lancets kit #1 ea 02/25/22 08/26/22 History ([employer]ChartsTouch Delica Lancing Device kit) prednisone 5 mg tablet 5 mg PO DAILY PRN low back pain 02/25/22 11/09/22 Rx #30 tabs carbidopa 25 mg-levodopa 100 mg 2 tab PO TID 90 days #540 tabs 07/10/22 11/09/22 Rx tablet (Sinemet) blood sugar diagnostic #100 ea 07/18/22 08/26/22 Rx sitagliptin phosphate 50 mg tablet 50 mg PO DAILY #30 tabs 07/29/22 11/09/22 Rx (Januvia) tamsulosin 0.4 mg capsule 0.4 mg PO DAILY #30 caps 09/04/22 11/09/22 Rx glimepiride 4 mg tablet 4 mg PO BID #180 tabs 10/24/22 11/09/22 Rx finasteride 5 mg tablet 5 mg PO DAILY #30 tabs 11/04/22 11/09/22 Rx Past Med/Surg History Medical History (Updated 11/10/22 @ 07:11 by Zacarias Champagne MD) Acute dehydration Arm pain Dental abscess Diffuse abdominal pain Encounter for pre-operative examination Muscle pain, cervical Myalgia and myositis Nephrolithiasis On prednisone therapy Polymyalgia rheumatica Seizures T2DM (type 2 diabetes mellitus) Ureteral stone Surgical History History of colonoscopy History of nasal surgery History of nose surgery on CCD Family History Mother Myocardial infarction Coronary heart disease Father Hemorrhage Other Family history non-contributory Denies family history of Ovarian cancer Prostate cancer Breast cancer Colorectal cancer Social History Smoking Status: Never smoker Second Hand Exposure: No; Do You Dip or Chew Tobacco: No; Hx Alcohol Use: No Hx Substance Use: No Preferred Language: Wolof Communication Ability: Effective Visual Impairment: No Limitations Hearing Ability: Use of Hearing Aid Merchandise Handler Required: No Beliefs That Will Affect Care: None marital status: Current Living Situation: Spouse current occupational status: retired Other Information That Helps Us Care for You: No Feels Safe at Home: Yes Safety Concerns: Feels Safe At This Time Childhood Exposure to Second-Hand Smoke: No Diet: regular caffeine: Yes during the past year weight has: remained stable Dental Care, Regularly: Yes Physical Activity Frequency: 1-2 Times per Week Physical Activity Frequency Comment: walks Seatbelt Use: always Sunscreen Use: No Assistive Devices: Hearing Aid - Left, Hearing Aid - Right and Walker Review of Systems Review of Systems: All systems reviewed & are unremarkable except as noted in HPI & below Physical Exam Constitutional: WD/WN, vitals as above (Appears generally tired) Eyes: PERRL, conjunctivae normal, anicteric sclerae ENMT: external ear and nose normal, oropharynx normal Neck: trachea midline, no thyromegaly Respiratory: normal respiratory effort, lungs clear to auscultation Cardiovascular: Rate/Rhythm: regular rate and regular rhythm Heart Sounds: no murmur Extremities: normal capillary refill; no calf tenderness and no pedal edema Gastrointestinal (Abdomen): normal bowel sounds, soft, nontender, no hepatosplenomegaly Musculoskeletal: no cyanosis or clubbing, extremities motor strength 5/5 Skin: no rashes, warm and dry Neurologic: moves all extremities and awake; no focal motor deficits and not confused Speech / Cognition: normal speech Cranial Nerves: PERRL, EOM intact bilaterally, normal facial strength, tongue midline, able to rotate head bilaterally, able to elevate shoulders bilaterally, no nystagmus and symmetric p alate elevation Psychiatric: A+Ox3, euthymic affect Results & Data Results & Data Vital Signs (Past 12 Hours) Vital Signs Temp Pulse Resp BP Pulse Ox O2 Del Method 11/09/22 08:34 72 11/09/22 08:21 76 19 160/73 H 98 Room Air 11/09/22 08:13 36.6 C 75 18 160/73 H 99 Room Air Laboratory Results Abnormal lab results 11/09/22 11/09/22 11/09/22 Range/Units 08:19 08:19 08:19 RBC 4.32 L (4.70-6.10) M/uL Hgb 12.8 L (14.0-18.0) g/dl Hct 36.7 L (42.0-52.0) % Neut # (Auto) 8.63 H (1.40-6.50) K/uL Lymph # (Auto) 0.75 L (1.2-3.4) K/uL [place] # (Auto) 0.84 H (0.11-0.59) K/uL ESR 52 H (0-20) mm/hr Calcium 8.5 L (8.6-10.3) mg/dl Troponin I High Sens 38.4 H (0-20) pg/ml Diagnostic Findings HEAD CT NONCONTRAST CT DOSE: 625.80 mGy.cm HISTORY: Confusion. weakness, headache TECHNIQUE: Multiaxial CT images of the head were performed without the use of intravenous contrast. Automated exposure control was utilized for this study. A dose lowering technique was utilized adhering to the principles of ALARA. Comparison: Head CT 09/01/2018. Findings: The paranasal sinuses and mastoid air cells are clear. The calvarium and skull base are intact. There is no mass, hematoma, midline shift, acute infarct. White matter hypodensity is nonspecific but suggestive of microvascular ischemic change. The ventricles and sulci demonstrate mild age-related involutional changes. 1 cm anterior nasal septal defect is again noted. Impression: No acute intracranial abnormality. Atrophy and microvascular ischemic changes. XR chest 1V portable HISTORY: weakness COMPARISON: Chest 07/06/2020. FINDINGS: The lungs are clear. Cardiac silhouette is normal in size. No pleural effusions. No pneumothorax. IMPRESSION: No acute process. Medications Administered ER Medications Given: NSS 1L bolus ECG Rate (beats per minute): 74 Rhythm: normal sinus Findings: + LAFB and + RBBB (incomplete) Comparison ECG Date: from (Jul 06, 2020) Change: the following changes noted (Septal infarct now present) Code Status & VTE Plan Code Status Full VTE Prophylaxis Plan VTE Prophylaxis will be ordered: Yes PG Care Time/CCT Total # of Minutes Spent Total Time Spent with Patient: Total time spent is greater than 50% in coordination of care (as documented) at patient's floor/unit and/or counseling patient: Coding Level of Care Code 47490 INT INP/OBS CARE 3/75MIN Diagnoses Generalized weakness R53.1 Hypertension I10 Diabetes mellitus type 2 with neurological manifestations E11.49 Parkinsons disease G20 Malaise and fatigue R53.81; R53.83 Elevated troponin R77.8 Microscopic hematuria R31.29 UTI (urinary tract infection) N39.0 Polymyalgia rheumatica M35.3 Benign prostate hyperplasia N40.0 Constipation K59.00 Hypoglycemia E16.2
[2022-11-09 11:33] LABS: Appearance Urine Clear (Clear); Bacteria Urine Automated Negative (Negative); Bilirubin Urine Negative (Negative); Blood Urine 3+ (Negative); Cast Urine Automated 0 /lpf (0-5); Color Urine Yellow; Epithelial Cell Urine Auto 0-5 /lpf (0-5); Glucose Urine UA Negative (Negative); Ketones Urine Trace (Negative); Leukocyte Esterase Urine Negative (Negative); Nitrite Urine Negative (Negative); Protein Urine Trace (Negative); RBC Urine Automated >30 /hpf (0-4); Specific Gravity Urine 1.018 (1.000-1.030); Urobilinogen Urine Negative (Negative)
[2022-11-09] MEDS ORDERED: CARBIDOPA/LEVODOPA 25/100MG TAB PO STA (11:48)
--- NOTE | 2022-11-09 13:07 | CT Scan Report ---
ABDOMEN AND PELVIS CT WITHOUT CONTRAST CT DOSE: 993.59 mGy.cm HISTORY: Fall. hematuria ?kidney stones TECHNIQUE: Multiaxial CT images of the abdomen and pelvis were performed without contrast. A dose lo wering technique was utilized adhering to the principles of ALARA. COMPARISON STUDY: Abdomen and pelvis CT 07/06/2020. FINDINGS: The lung bases are clear. No pneumoperitoneum. No pneumatosis. No acute fractures identifie d. The unenhanced liver, gallbladder, pancreas, spleen, and adrenal glands unremarkable. No retroperi toneal lymphadenopathy. Mild calcified plaque within the normal caliber abdominal aorta. No pelvic ly mphadenopathy or pelvic free fluid. The prostate gland is mildly enlarged. No bladder wall thickening . Bilateral peripelvic renal cysts are noted. There are 2 stones within the left kidney with the larg est measuring 1.3 cm. No right renal calculi. No ureteral calculi. No hydronephrosis. Suboptimal eval uation for bowel pathology due to the lack of intravenous and oral contrast. However, there is no def inite bowel wall thickening or obstruction. Normal appendix. A few colonic diverticula. No evidence f or acute diverticulitis. IMPRESSION: 1. Left-sided nephrolithiasis. No ureteral stones. No hydronephrosis. 2. No definite bowel wall thickening or obstruction. 3. Additional findings as described above. ACT 112: Negative or not required by law. Electronically signed by: Dusty Solis M.D. 11/09/2022 1:05 PM
[2022-11-09] MEDS ORDERED: ACETAMINOPHEN 325 MG TAB PO PRN (13:18)
[2022-11-09] MEDS: CARBOHYDRATES FOR HYPOGLYCEMIA PO PRN ×2 (14:25→14:54)
[2022-11-09] MEDS ORDERED: cefTRIAXone SODIUM 1,000 MG in DEXTROSE 5% AD-VAN 50 ML IV SCH (14:30)
[2022-11-09] MEDS ORDERED: GLUCOSE 40% GEL 15 GM TUBE PO PRN (14:51)
[2022-11-09] MEDS ORDERED: GLUCAGON FOR INJ 1 MG VIAL SQ PRN (14:51)
[2022-11-09] MEDS ORDERED: GLUCOSE 10 TAB/TUBE PO PRN (14:51)
[2022-11-09] MEDS ORDERED: DEXTROSE 50% 50 ML SYRINGE IV PRN (14:51)
[2022-11-09] MEDS: TAMSULOSIN HCL 0.4 MG CAP PO SCH (15:42)
[2022-11-09] MEDS ORDERED: POLYETHYLENE (MIRALAX) 17 GM PACK PO PRN (16:27)
[2022-11-09] MEDS: CARBIDOPA/LEVODOPA 25/100MG TAB PO SCH (21:40)
[2022-11-10] MEDS ORDERED: CARBOHYDRATES FOR HYPOGLYCEMIA PO PRN (07:07)
[2022-11-10] MEDS ORDERED: DEXTROSE 50% 50 ML SYRINGE IV PRN (07:07)
[2022-11-10] MEDS ORDERED: GLUCOSE 10 TAB/TUBE PO PRN (07:07)
[2022-11-10] MEDS ORDERED: GLUCAGON FOR INJ 1 MG VIAL SQ PRN (07:07)
[2022-11-10] MEDS ORDERED: GLUCOSE 40% GEL 15 GM TUBE PO PRN (07:07)
[2022-11-10] MEDS ORDERED: INSULIN ASPART PER UNIT CHARGE SC SCH (07:30)
[2022-11-10] MEDS: TAMSULOSIN HCL 0.4 MG CAP PO SCH (08:14)
[2022-11-10] MEDS: CARBIDOPA/LEVODOPA 25/100MG TAB PO SCH (08:15)
[2022-11-10] MEDS ORDERED: ASPIRIN 81 MG ECTAB PO SCH (09:00)
[2022-11-10] MEDS ORDERED: FINASTERIDE 5 MG TAB PO SCH (09:00)
--- NOTE | 2022-11-10 13:20 | Discharge Summary ---
Date of Service November 10, 2022 Admission HPI Per Admitting Provider Ronnell Dasilva is an 82 year old male with Parkinson's who presents to the ER with weakness, confusion and difficulty ambulating for the last 2 days. On further discussion with his and daughter however not clear on timeline as he has also been having progressive decline since the start of the year and more pronounced in the last 2 weeks and especially two days. He noticed it a lot after mowing the lawn yesterday. Significantly decreased strength this morning and difficulty getting out of bed with diaphoresis. Crawling around on the floor confused yesterday with two falls, one of which he hit his head. His is concerned about him having kidney stones as she thinks he is similar to when he previous had kidney stones in June 2020 (although on review of that admission he was having abdominal pain to which he denies today). They have been making multiple adjustments to his medications as they were concerned he was having side effects from them. He reduced his glimepiride to just in the morning. Stopped taking his night time Sinemet on Friday to and stopped simvastatin. He denies any respiratory, GI or urinary infective symptoms. No headache. He has a history of polymyalgia rheumatica and under rheumatology in [place]. He reports being taken off prednisone at the beginning of the year and has noticed significant decline off this and noticed significant improvement while he was on prednisone. Principal Diagnosis hypoglycemia Discharge Exam The patient is awake, alert and oriented 3, well developed and well nourished, normocephalic and atraumatic, lying in bed and in no acute distress. HEENT--PERRL, EOMI, mucous membranes and oropharynx mildly dry Neck--supple. No JVD. No bruits. Thyroid normal, trachea midline, no adenopathy. Heart--normal S1 and S2. No murmurs, rubs or gallops. Lungs--clear bilaterally, no respiratory distress, no accessory muscle use. Abdomen--normal bowel sounds and soft. Mild epigastric and left sided abdominal pain Extremities--no cyanosis or clubbing. No edema. Dermatologic--normal skin turgor, normal color, no abnormal lymph nodes, no rash . Neurologic--cranial nerves II through XII grossly intact. rest tremors Rheumatologic--normal range of motion. Psychiatric--normal affect. Discharge Data Allergies Allergy/AdvReac Type Severity Reaction Status Date / Time lisinopril Allergy Mild COUGH Verified 11/09/22 11:43 doxazosin AdvReac Mild TIRED Verified 11/09/22 11:43 Consultations 11/09/22 10:21 ED Decision to Admit Stat Ordered Studies 11/09/22 08:38 CT head/brain wo con Stat 11/09/22 11:45 CT Abd and Pelvis [CT abd pelvis wo con] Stat Hospital Course (1) Generalized weakness: Broad differential on admission and also unclear exact timeline of progression. Likely a combination of hypoglycemia and hunger. patient said he did not eat and his blood glucose went low. Now resolved. Will cut his home dose of Glimepride to 2mg BID from 4mg BID History fits with systemic metabolic encephalopathy however rather than specific focal brain etiology therefore do not feel a stroke workup is warranted Differential includes: UTI - no specific symptoms but also only abnormality from lab work was hematuria not otherwise explained on CT A/P. Will treat with ceftriaxone pending urine/blood cultures. Hypoglycemia - taking sulfourea and despite self decreasing dose still had a hypoglycemic episode here, suspect no longer being on steroids has meant he has needed less glucose control and his diabetes medication do not appear to have been accordingly adjusted Constipation - per history this is more of a chronic problem and not progressing however generally poor history, will continue to monitor BM here with MiraLAX PRN Progression of Parkisnons - patient was skipping his evening sinemet this week possible contributing Polymyalgia rheumatica - stopped steroids at the beginning of this year and progressively weaker since then, difficult to explain his confusion with this diagnosis but if no UTI on culture would consider going back on prednisone 20mg (2) Hypertension: Hold propranolol and monitor (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: Hold diabetes medications and monitor Reduce home dose of Glimeprirde to 2mg BID from 4mg BID (4) Parkinsons disease: Continue Sinemet (5) Malaise and fatigue: (6) Elevated troponin: (7) Microscopic hematuria: (8) UTI (urinary tract infection): (9) Polymyalgia rheumatica: (10) Benign prostate hyperplasia: Continue tamsulosin and finasteride (11) Constipation: (12) Hypoglycemia: Plan VTE Prophyalxis - low risk Diet - regular Disposition - observation to med/surg Total Time Total Time Spent Total Time Spent (In Minutes): 35 Discharge Plan Discharge Items Patient Disposition: Home - Self-Care Reason For Visit: GENERALIZED WEAKNESS Discharge Diagnosis: weakness, hypoglycemia, Activity: Resume your previous activity Non-emergency contact: Primary Care Provider Call non-emergency contact if: you have any medication questions Follow-up/Referrals: Gen Shi MD [Primary Care Provider] - 11/18/22 3:00 pm Diet: Regular Addtl Attending Provider Instructions: please follow up with your regular PCP I reduced the dose of your Glimepiride to 2mg twice daily because of your low b lood glucose Pending Studies at Discharge: No Stand-Alone Forms: My [facility] Standard Treasury, Smoking Cessation Medications and DC Order Prescriptions: New glimepiride 2 mg tablet 2 mg PO BID Qty: 30 0RF Continued simvastatin 20 mg tablet 20 mg PO DAILY Qty: 100 3RF (DME) blood sugar diagnostic Strip See Rx Instructions .ROUTE .MEDSUPPLY Qty: 100 3RF Dose Instruction: As directed Rx Instructions: Test blood sugar once daily ONE TOUCH ULTRA Januvia 50 mg tablet 50 mg PO DAILY Qty: 30 5RF tamsulosin 0.4 mg capsule 0.4 mg PO DAILY Qty: 30 5RF finasteride 5 mg tablet 5 mg PO DAILY Qty: 30 5RF cholecalciferol (vitamin D3) 25 mcg (1,000 unit) capsule 25 mcg PO DAILY (DME) lancing device with lancets [[employer] Delica Lanc Device] Kit See Rx Instructions .ROUTE .MEDSUPPLY Qty: 1 Rx Instructions: As directed (DME) lancets [[employer]uch UltraSoft Lancets] [facility] See Rx Instructions .ROUTE .MEDSUPPLY Qty: 100 Rx Instructions: As directed (DME) blood-glucose meter [[employer]uch Verio Flex meter] [facility] See Rx Instructions .ROUTE .MEDSUPPLY Qty: 1 Rx Instructions: As directed prednisone 5 mg tablet 5 mg PO DAILY PRN (Reason: low back pain) Qty: 30 0RF Rx Instructions: do not exceed more than 10 tablets/month. psyllium husk [Daily Fiber] 0.52 gram capsule 0.52 g PO DAILY carbidopa-levodopa [Sinemet] 25-100 mg tablet 2 tab PO TID 90 Days Qty: 540 1RF aspirin [Gordo Low Dose Aspirin] 81 mg tablet,delayed release (DR/EC) 81 mg PO DAILY Qty: 30 5RF vitamin B complex Tablet 1 tab PO DAILY Discontinued glimepiride 4 mg tablet 4 mg PO BID Qty: 180 3RF Hold Instructions: hypoglycemia Discharge Orders: Discharge Order (Routine); Ordered 11/10/22 Ordered By: Elieser García Admission Data Admit Date/Time: 11/09/22 11:52 Attending Provider: Elieser García Admit Provider: Zacarias Champagne Primary Care Provider: Gen Shi Other Providers: Zacarias Champagne Other Interventions: Discharge Summary Assessment (RN) Last Done: 11/10/22 10:54 Coding Level of Care Code 61912 INP/OBS DISCH >30 MIN Diagnoses Generalized weakness R53.1 Hypertension I10 Diabetes mellitus type 2 with neurological manifestations E11.49 Parkinsons disease G20 Malaise and fatigue R53.81; R53.83 Elevated troponin R77.8 Microscopic hematuria R31.29 UTI (urinary tract infection) N39.0 Polymyalgia rheumatica M35.3 Benign prostate hyperplasia N40.0 Constipation K59.00 Hypoglycemia E16.2 Time Spent (min) 35
--- NOTE | 2022-11-11 06:03 | Electrocardiogram Report ---
Test Reason : Blood Pressure : / mmHG Vent. Rate : 074 BPM Atrial Rate : 074 BPM P-R Int : 172 ms QRS Dur : 100 ms QT Int : 412 ms P-R-T Axes : 073 -54 073 degrees QTc Int : 457 ms Normal sinus rhythm Incomplete right bundle branch block Left anterior fascicular block Cannot rule out Septal infarct , age undetermined Abnormal ECG When compared with ECG of 06-JUL-2020 15:05, Incomplete right bundle branch block is now Present Confirmed by Steve Garrett ([id number]) on 11/11/2022 6:03:27 AM Referred By: REFERRED SELF Confirmed By:Steve Garrett
== END 2022-11-10 11:33 | disposition home or self-care (01) ==
LOC: 3N 07:59 → ED 07:59 → SUATTDRO 11:52 → 3N 12:56

== ENCOUNTER 2023-06-26 10:05 | Inpatient (IN) ==
[2023-06-26 11:22] LABS: Basophils # (auto) 0.05 K/uL (0.00-0.20); Basophils % (auto) 0.4 %; Eosinophils # (auto) 0.03 K/uL (0.00-0.50); Eosinophils % (auto) 0.3 %; Hemoglobin 13.4 g/dl (14.0-18.0); Immature Granulocytes # (auto) 0.11 K/uL (0.01-0.20); Immature Granulocytes % (auto) 0.9 %; Lymphocytes # (auto) 1.46 K/uL (1.20-3.40); Lymphocytes % (auto) 12.4 %; Mean Corpuscular Hemoglobin 30.2 pg (25.0-34.0); Mean Corpuscular Hgb Conc 33.5 g/dL (32.0-36.0); Mean Corpuscular Volume 90.3 fL (80.0-100.0); Mean Platelet Volume 9.8 fL (9.4-12.4); Monocytes # (auto) 0.83 K/uL (0.11-0.59); Monocytes % (auto) 7.1 %; Neutrophils # (auto) 9.25 K/uL (1.40-6.50); Neutrophils % (auto) 78.9 %; Platelet Count 157 K/uL (130-400); RDW Coefficient of Variation 14.7 % (11.5-14.5); Red Blood Count 4.43 M/uL (4.70-6.10); White Blood Count 11.73 K/ul (4.8-10.8)
[2023-06-26 11:40] LABS: Albumin Globulin Ratio 1.9 (0.9-2); Albumin Level 3.9 gm/dl (3.4-5.0); BUN Creatinine Ratio 21.9 (10-20); Bilirubin,Total 0.7 mg/dl (0.2-1.0); Calcium 8.6 mg/dl (8.6-10.3); Creatinine Clr Calc Pharmacy 49.1 ml/min; Est GFR (African American) 68.5 ml/min; Est GFR (Non-African American) 59.1 ml/min; Globulin 2.1 gm/dl (2.5-4.0); Potassium 4.4 mmol/L (3.5-5.1)
--- NOTE | 2023-06-26 11:53 | Emergency Department Note ---
Impression & Plan DVT (deep venous thrombosis), Acute constipation, Renal colic, Chronic ulcer of sacral region ED Provider Note NAME: ERICA WALLACE AGE: 82 SEX: M : 1940 ARRIVES VIA: Walk-In INFORMANT: Patient, ED PROVIDER(S): Bre Sesay MD CHIEF COMPLAINT: Constipation, urinary retention HPI: This is a 82-year-old male history of stage III pressure ulcer of the left buttock,, GERD, diabetes, CKD presenting for constipation, rectal pain and inability urinate. Patient has had been able to urinate mall amounts for the past few days. However he has not had a bowel movement since 06/20, about 6 days ago. states that he has a pressure ulcer on his buttocks as well. He notes pain around this ulcer as well. No fever or chills. No shortness of breath or chest pain. ROS: See above HPI for pertinent positives & negatives. A total of 10 systems reviewed and were otherwise negative. PAST MEDICAL HISTORY: See Below PAST SURGICAL HISTORY: See Below FAMILY HISTORY: See Below SOCIAL HISTORY: See Below HOME MEDICATIONS: See Below ALLERGIES: See Below VITALS: See Below PHYSICAL EXAMINATION: General: resting comfortably in no acute distress, chronically ill-appearing Head: Normocephalic and atraumatic Eyes: Normal inspection, extraocular muscles intact Ear, nose, throat: Normal external exam Neck: Normal range of motion Respiratory: lungs clear to auscultation bilaterally Cardiovascular: Regular rate/rhythm, no murmur GI: Soft, nontender : Possible stage I pressure ulcer of the left gluteal cleft, significant surrounding erythema, tenderness and edema Extremities: nontender, moves all extremities Neuro: The patient awake and alert, appropriately conversive, no focal deficits, symmetric faces Skin: Warm, dry, and intact MEDICAL DECISION MAKING: This is a an 82-year-old male presenting for constipation and rectal pain inability urinate. With patient's pressure ulcer and now constipation will do CT of the abdomen/pelvis to help assess further whether patient is significantly constipated or having deepening infection. Patient able to urinate, lower concern for cauda equina clinically as he has no actual back pain mostly rectal/superficial skin pain around the area of the pressure ulcer. -Lab work reveals a BC count of 11.73, hemoglobin of 13.4. Otherwise no significant electrolyte disturbances. -Patient CT imaging as she reveals quite a few abnormalities including a DVT in the right common femoral vein, obstructive 7 cm stone in the left ureter, fecal retention and the known sacral decubitus ulcer -In light of all these findings, patient required mission as patient is generally bedbound likely as cause for DVT. He will need antibiotics for his sacral decubitus ulcer and further management for the stone and fecal retention -discussed admission with hospitalist service accepted to [facility] hospitalist group. Differential diagnosis: ER treatment provided: See below Diagnostics interpreted by me: ECG: None Cardiac Monitoring: An order was placed for continuous cardiac monitoring. The monitor shows a rate of 74 with sinus rhythm. Laboratory studies: As stated above and show below. Imaging studies: See below. 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 [facility] ER visit 12/16/22. (see Telephone note 12/20/2022 [facility]) Osteoporosis Osteoarthritis Spinal stenosis Enlarged prostate GERD (gastroesophageal reflux disease) "occasional" DM type 2 (diabetes mellitus, type 2) Hearing deficit BL SPEARS Anxiety and depression PMR (polymyalgia rheumatica) Parkinsons disease Seizure per , suspected seizure during last hospitalization at [facility] 11/2022. HLD (hyperlipidemia) History of kidney stones Unilateral visual loss On prednisone therapy Surgical History History of temporal artery biopsy (01/15/23) Left Temporal Artery Biopsy(Left) - Yevgeniy Su DO, FACS History of removal of ureteral stent History of cystoscopy w/ stent placement History of cataract surgery History of colonoscopy History of nasal surgery History of nose surgery on CCD Family History Mother Myocardial infarction Coronary heart disease Father Hemorrhage Other Family history non-contributory Denies family history of Ovarian cancer Prostate cancer Breast cancer Colorectal cancer Social History Smoking Status: Never smoker Second Hand Exposure: Yes (hx); Do You Dip or Chew Tobacco: No; Hx Alcohol Use: No Hx Substance Use: No Preferred Language: Turkish Communication Ability: Effective Visual Impairment: No Limitations Hearing Ability: Use of Hearing Aid Estimator Binding Required: No Beliefs That Will Affect Care: None marital status: Current Living Situation: Spouse current occupational status: retired How many Children do You have: 1 Feels Safe at Home: Yes Childhood Exposure to Second-Hand Smoke: No Diet: regular caffeine: Yes during the past year weight has: remained stable Dental Care, Regularly: Yes Physical Activity Frequency: 1-2 Times per Week Physical Activity Frequency Comment: walks Seatbelt Use: always Sunscreen Use: No Assistive Devices: Walker Allergies Allergies Allergy/AdvReac Type Severity Reaction Status Date / Time doxazosin AdvReac Intermediate TIRED Verified 06/11/23 13:39 lisinopril AdvReac Intermediate COUGH Verified 06/11/23 13:39 Home Meds Home Medications Medication Instructions Recorded Confirmed vitamin B complex 1 tab PO HS 07/06/20 06/11/23 cholecalciferol (vitamin D3) 25 25 mcg PO HS 08/16/20 06/11/23 mcg (1,000 unit) capsule lancing device with lancets kit #1 ea 02/25/22 06/11/23 (Viewhigh Technology Lancing Device kit) aspirin 81 mg tablet,delayed 81 mg PO QAM 01/08/23 06/11/23 release (Gordo Low Dose Aspirin) guar gum 1 tbsp PO QAM 01/09/23 06/11/23 zoledronic acid 5 mg/100 mL in ea IV YEARLY 05/13/23 06/11/23 mannitol 5 %-water intravenous piggybck (Reclast) Previous Rx's Medication Instructions Recorded blood sugar diagnostic #200 ea 01/02/23 mirtazapine 7.5 mg tablet 7.5 mg PO DAILY #30 tabs 01/31/23 lancets #200 ea 02/10/23 blood-glucose meter (OneTouch #1 ea 02/12/23 Ultra2 Meter) sitagliptin phosphate 50 mg tablet 50 mg PO QAM #30 tabs 02/12/23 (Januvia) simvastatin 20 mg tablet 20 mg PO QPM #90 tabs 03/13/23 tamsulosin 0.4 mg capsule 0.4 mg PO QAM #90 caps 03/13/23 prednisone 20 mg tablet 20 mg PO QAM #30 tabs 03/24/23 carbidopa 25 mg-levodopa 100 mg 1.5 tab PO TID 90 days #405 tabs 12/19/23 tablet (Sinemet) finasteride 5 mg tablet 5 mg PO QAM #90 tabs 05/21/23 insulin glargine 100 unit/mL (3 15 unit (0.15 mL) subcut QPM #15 mL 06/12/23 mL) subcutaneous pen (Lantus Solostar U-100 Insulin) insulin regular human 100 unit/mL See Rx Instructions subcut BID #2 06/12/23 (3 mL) subcutaneous pen (Novolin R syringes FlexPen) pen needle, diabetic 31 gauge x #100 ea 06/12/23 3/16" (BD Ultra-Fine Mini Pen Needle) doxycycline hyclate 100 mg tablet 100 mg PO bid #28 tabs 06/13/23 Results & Data (ED) Vital Signs Vital Signs - 24 hr 06/26/23 10:18 06/26/23 10:33 06/26/23 10:40 Temperature 36.6 C Temperature Source Skin Pulse Rate 87 72 Pulse Rate [Apical] 75 Pulse Rate from SpO2 Sensor 72 Respiratory Rate 18 71 H 16 Respiratory Effort / Characteristics Non-Labored Respiratory Depth Normal Blood Pressure 141/68 H Blood Pressure [Left Arm] 149/93 H Blood Pressure Mean 92 Blood Pressure Mean [Left Arm] 111 Pulse Oximetry 99 98 Oxygen Delivery Method Room Air Room Air Sepsis Recent Fever Within 48 Hours No Sepsis New/Unexplained Change in Mental Status No Sepsis Action Taken by Nursing No Action Required 06/26/23 10:42 06/26/23 10:50 06/26/23 10:52 Temperature Temperature Source Pulse Rate 75 73 Pulse Rate [Apical] Pulse Rate from SpO2 Sensor 71 Respiratory Rate 17 Respiratory Effort / Characteristics Respiratory Depth Blood Pressure Blood Pressure [Left Arm] Blood Pressure Mean Blood Pressure Mean [Left Arm] Pulse Oximetry 100 100 Oxygen Delivery Method Room Air Room Air Sepsis Recent Fever Within 48 Hours Sepsis New/Unexplained Change in Mental Status Sepsis Action Taken by Nursing 06/26/23 11:00 06/26/23 11:10 06/26/23 11:20 Temperature Temperature Source Pulse Rate 71 69 73 Pulse Rate [Apical] Pulse Rate from SpO2 Sensor Respiratory Rate 14 15 16 Respiratory Effort / Characteristics Respiratory Depth Blood Pressure Blood Pressure [Left Arm] Blood Pressure Mean Blood Pressure Mean [Left Arm] Pulse Oximetry Oxygen Delivery Method Sepsis Recent Fever Within 48 Hours Sepsis New/Unexplained Change in Mental Status Sepsis Action Taken by Nursing 06/26/23 11:30 06/26/23 11:40 06/26/23 11:50 Temperature Temperature Source Pulse Rate 74 78 66 Pulse Rate [Apical] Pulse Rate from SpO2 Sensor Respiratory Rate 16 16 15 Respiratory Effort / Characteristics Respiratory Depth Blood Pressure Blood Pressure [Left Arm] Blood Pressure Mean Blood Pressure Mean [Left Arm] Pulse Oximetry Oxygen Delivery Method Sepsis Recent Fever Within 48 Hours Sepsis New/Unexplained Change in Mental Status Sepsis Action Taken by Nursing 06/26/23 12:00 06/26/23 12:10 06/26/23 12:20 Temperature Temperature Source Pulse Rate 67 75 67 Pulse Rate [Apical] Pulse Rate from SpO2 Sensor Respiratory Rate 16 14 15 Respiratory Effort / Characteristics Respiratory Depth Blood Pressure Blood Pressure [Left Arm] Blood Pressure Mean Blood Pressure Mean [Left Arm] Pulse Oximetry Oxygen Delivery Method Sepsis Recent Fever Within 48 Hours Sepsis New/Unexplained Change in Mental Status Sepsis Action Taken by Nursing 06/26/23 12:30 06/26/23 12:59 06/26/23 13:00 Temperature Temperature Source Pulse Rate 69 78 Pulse Rate [Apical] Pulse Rate from SpO2 Sensor 85 78 Respiratory Rate 15 19 Respiratory Effort / Characteristics Respiratory Depth Blood Pressure Blood Pressure [Left Arm] Blood Pressure Mean Blood Pressure Mean [Left Arm] Pulse Oximetry 99 98 Oxygen Delivery Method Sepsis Recent Fever Within 48 Hours Sepsis New/Unexplained Change in Mental Status Sepsis Action Taken by Nursing 06/26/23 13:10 06/26/23 13:20 06/26/23 13:30 Temperature Temperature Source Pulse Rate 72 72 75 Pulse Rate [Apical] Pulse Rate from SpO2 Sensor 73 72 74 Respiratory Rate 19 15 18 Respiratory Effort / Characteristics Respiratory Depth Blood Pressure Blood Pressure [Left Arm] Blood Pressure Mean Blood Pressure Mean [Left Arm] Pulse Oximetry 100 99 99 Oxygen Delivery Method Sepsis Recent Fever Within 48 Hours Sepsis New/Unexplained Change in Mental Status Sepsis Action Taken by Nursing 06/26/23 13:37 06/26/23 14:00 Temperature Temperature Source Pulse Rate 74 74 Pulse Rate [Apical] Pulse Rate from SpO2 Sensor 74 74 Respiratory Rate 24 15 Respiratory Effort / Characteristics Respiratory Depth Blood Pressure 141/76 H 149/94 H Blood Pressure [Left Arm] Blood Pressure Mean 97 112 Blood Pressure Mean [Left Arm] Pulse Oximetry 98 99 Oxygen Delivery Method Room Air Room Air Sepsis Recent Fever Within 48 Hours Sepsis New/Unexplained Change in Mental Status Sepsis Action Taken by Nursing Laboratory Data 06/26/23 10:53 06/26/23 10:53 Lab Results 06/26/23 Range/Units 10:53 WBC 11.73 H (4.8-10.8) K/ul RBC 4.43 L (4.70-6.10) M/uL Hgb 13.4 L (14.0-18.0) g/dl Hct 40.0 L (42.0-52.0) % MCV 90.3 (80.0-100.0) fL MCH 30.2 (25.0-34.0) pg MCHC 33.5 (32.0-36.0) g/dL RDW Std Deviation 48.0 H (36.4-46.3) fL RDW Coeff of [place] 14.7 H (11.5-14.5) % Plt Count 157 (130-400) K/uL MPV 9.8 (9.4-12.4) fL Immature Gran % (Auto) 0.9 % Neut % (Auto) 78.9 % Lymph % (Auto) 12.4 % [place] % (Auto) 7.1 % Eos % (Auto) 0.3 % Baso % (Auto) 0.4 % Neut # (Auto) 9.25 H (1.40-6.50) K/uL Lymph # (Auto) 1.46 (1.20-3.40) K/uL [place] # (Auto) 0.83 H (0.11-0.59) K/uL Eos # (Auto) 0.03 (0.00-0.50) K/uL Baso # (Auto) 0.05 (0.00-0.20) K/uL Immature Gran # (Auto) 0.11 (0.01-0.20) K/uL PT 11.4 (9.0-12.0) Seconds INR 1.0 (0.9-1.1) APTT 23 (21-31) Seconds PTT Ratio 0.8 Heparin Anti-Xa, Unfract < 0.10 L (0.3-0.7) IU/ml Sodium 138 (136-145) mmol/L Potassium 4.4 (3.5-5.1) mmol/L Chloride 103 (98-107) mmol/L Carbon Dioxide 29 (21-32) mmol/L Anion Gap 6 (3-11) BUN 25 H (6-23) mg/dl Creatinine 1.14 (0.6-1.4) mg/dl Est Cr Clr Drug Dosing 49.1 ml/min Est GFR ( Amer) 68.5 ml/min Est GFR (Non-Af Amer) 59.1 ml/min BUN/Creatinine Ratio 21.9 H (10-20) Glucose 139 H (70-99(Fasting)) mg/dl Calcium 8.6 (8.6-10.3) mg/dl Total Bilirubin 0.7 (0.2-1.0) mg/dl AST 21 (13-39) U/L ALT 28 (7-52) U/L Alkaline Phosphatase 53 (34-104) U/L Total Protein 6.0 (6.0-8.3) gm/dl Albumin 3.9 (3.4-5.0) gm/dl Globulin 2.1 L (2.5-4.0) gm/dl Albumin/Globulin Ratio 1.9 (0.9-2) Lipase 28 (11-82) U/L Administered Medications Heparin Sodium/Dextrose (Heparin Sodium/Dextrose) 25,000 units in 500 mls @ 26 mls/hr IV .[id number] [facility]; Protocol Stop: 07/26/23 13:59 Last Admin: 06/26/23 14:36 Dose: 1,300 units/hr, 26 mls/hr Documented By: DONNIE Co-signed By: KENNETH Discontinued Medications Heparin Sodium (Porcine) (Heparin Sod (Porcine) 1000 Unit/Ml) 1 units IV NOW ONE Stop: 06/26/23 13:56 Last Admin: 06/26/23 14:35 Dose: 6,000 units Documented By: DONNIE Co-signed By: KENNETH Heparin Sodium/Dextrose (Heparin Iv Adult Wt-Based Standard W/ Initial Bolus Protocol) 1 each IV NOW STA; Protocol Stop: 06/26/23 13:41 Last Admin: 06/26/23 14:36 Dose: Not Given Documented By: DONNIE Ioversol (Optiray 320 500ml) 88 ml IV ONCE ONE Stop: 06/26/23 12:57 Last Admin: 06/26/23 12:56 Dose: 88 ml Documented By: AW Imaging Data Radiologist's Impression: Abdomen/Pelvis CT 06/26/23 10:34 CT SCAN OF THE ABDOMEN AND PELVIS WITH IV CONTRAST CLINICAL HISTORY: Constipation. Pressure wound. COMPARISON STUDY: Abdominal CT dated 11/09/2022. TECHNIQUE: Following the IV administration of 88 cc of Optiray 320, CT scan of the abdomen and pelvis is performed from the lung bases to the proximal femora. Images are reviewed in the axial, sagittal, and coronal planes. IV contrast was administered without complication. A dose lowering technique was utilized adhering to the principles of ALARA. CT DOSE: 851.06 mGy.cm FINDINGS: Lung bases: The heart is mildly enlarged and without pericardial effusion. There are coronary artery calcifications. A tiny hiatal hernia is noted. There is bibasilar scarring/atelectasis. No airspace consolidation or pleural effusion is identified. Liver: The contrast-enhanced liver is normal in size, contour, and attenuation. There is no intrahepatic biliary ductal dilatation. The hepatic veins and portal veins are patent. Gallbladder: Unremarkable. Spleen: Normal in size and attenuation. Pancreas: Moderately atrophic and grossly unremarkable. Adrenal glands: Unremarkable. Kidneys: The contrast enhanced kidneys demonstrate mild cortical atrophy. There is a 7 mm obstructing calculus in the distal left ureter just below the pelvic inlet seen on axial image #275. This causes mild left hydroureteronephrosis. A 14 mm calculus is seen in the left renal pelvis on image #157. There is likely additional nonobstructing left upper pole calculus. The renal collecting systems aren't well evaluated due to early infiltration of IV contrast. There is no right ureteral stone and no hydronephrosis is seen on the right. The kidneys enhance symmetrically. There is left-sided perinephric stranding. Abdominal vasculature: The abdominal aorta is normal in course and caliber noting moderate atherosclerotic calcification. There is deep venous thrombosis identified in the right common femoral vein extending to the right superficial femoral vein. This is best seen on axial image #365. Bowel: There is rectosigmoid fecal retention and moderate constipation. No bowel obstruction is seen. Duodenal diverticula are noted. The appendix is well- visualized and normal. Peritoneum: There is no intraperitoneal free air or abdominal ascites. There is a fat-containing umbilical hernia. Lymphadenopathy: None. Pelvic viscera: The prostate gland is enlarged and heterogeneous. The bladder is distended, and the wall is thickened/trabeculated indicating chronic outlet obstruction. There are small bilateral fat-containing groin hernias. Skeletal structures: The skeletal structures are osteopenic. There is moderate lumbosacral spondylosis. Degenerative change is also noted in the hips and sacroiliac joints. No lytic or blastic lesions are seen. Soft tissues: There is infiltration of the subcutaneous soft tissues superficial to the coccyx. No wound is clearly seen and there is no fluid collection to suggest abscess. IMPRESSION: 1. There is deep venous thrombosis identified in the right common femoral vein. 2. There is a 7 mm obstructing calculus in the distal left ureter. This causes mild left hydroureteronephrosis. 3. Additional nonobstructing left renal calculi as above. 4. Rectosigmoid fecal retention and moderate constipation. 5. There is subcutaneous soft tissue infiltration superficial to the coccyx. This may correspond to the reported history of a pressure wound. Correlate with direct visualization. 6. Cardiomegaly. 7. Additional findings as above. ACT 112: Negative or not required by law. Electronically signed by: Augie Barrientos M.D. 06/26/2023 1:10 PM Discharge Plan Visit Data Chief Complaint: Constipation Stated Complaint: CONSTIPATION, UNABLE TO PEE ED Provider: Bre Sesay Discharge Problem: DVT (deep venous thrombosis), Acute constipation, Renal colic, Chronic ulcer of sacral region Forms Stand Alone Forms: [facility] Prescriptions Prescriptions: No Action (DME) lancets [facility] [place] Rx Instructions .ROUTE .MEDSUPPLY Qty: 200 3RF Rx Instructions: Test once daily and as needed (DME) blood-glucose meter [OneTouch Ultra2 Meter] Misc See Rx Instructions .Route Qty: 1 0RF Rx Instructions: check sugar 4x daily and PRN Januvia 50 mg tablet 50 mg PO QAM Qty: 30 11RF simvastatin 20 mg tablet 20 mg PO QPM Qty: 90 3RF tamsulosin 0.4 mg capsule 0.4 mg PO QAM Qty: 90 3RF carbidopa-levodopa [Sinemet] 25-100 mg tablet 1.5 tab PO TID 90 Days Qty: 405 1RF zoledronic [id number] [Reclast] 5 mg/100 mL piggyback IV YEARLY Rx Instructions: INFUSION ON 06/02/23 finasteride 5 mg tablet 5 mg PO QAM Qty: 90 3RF insulin glargine [Lantus Solostar U-100 Insulin] 100 unit/mL (3 mL) insulin pen 15 unit subcut QPM Qty: 15 5RF Novolin R FlexPen 100 unit/mL (3 mL) insulin pen See Rx Instructions subcut BID Qty: 2 3RF Rx Instructions: Inject 5 units before lunch and supper subcutaneously every day. (DME) pen needle, diabetic [BD Ultra-Fine Mini Pen Needle] 31 gauge x 3/16" needle See Rx Instructions .Route Qty: 100 3RF Rx Instructions: As directed doxycycline hyclate 100 mg tablet 100 mg PO bid Qty: 28 0RF cholecalciferol (vitamin D3) 25 mcg (1,000 unit) capsule 25 mcg PO HS (DME) lancing device with lancets [Viewhigh Technology Lanc Device] Kit See Rx Instructions .ROUTE .MEDSUPPLY Qty: 1 Rx Instructions: As directed (DME) blood sugar diagnostic Strip See Rx Instructions .ROUTE .MEDSUPPLY Qty: 200 3RF Dose Instruction: As directed Rx Instructions: Test blood sugar 4x/day ONE TOUCH ULTRA mirtazapine 7.5 mg tablet 7.5 mg PO DAILY Qty: 30 5RF prednisone 20 mg tablet 20 mg PO QAM Qty: 30 1RF vitamin B complex Tablet 1 tab PO HS aspirin [Gordo Low Dose Aspirin] 81 mg tablet,delayed release (DR/EC) 81 mg PO QAM guar gum Packet 1 tbsp PO QAM Rx Instructions: mix into at least 4 oz water or juice before administering Benefiber Referrals Referrals: Gen Shi MD [Primary Care Provider] -
[2023-06-26] MEDS: OPTIRAY 320 500ml IV ONE (12:56)
--- NOTE | 2023-06-26 13:12 | CT Scan Report ---
CT SCAN OF THE ABDOMEN AND PELVIS WITH IV CONTRAST CLINICAL HISTORY: Constipation. Pressure wound. COMPARISON STUDY: Abdominal CT dated 11/09/2022. TECHNIQUE: Following the IV administration of 88 cc of Optiray 320, CT scan of the abdomen and pelvi s is performed from the lung bases to the proximal femora. Images are reviewed in the axial, sagittal , and coronal planes. IV contrast was administered without complication. A dose lowering technique wa s utilized adhering to the principles of ALARA. CT DOSE: 851.06 mGy.cm FINDINGS: Lung bases: The heart is mildly enlarged and without pericardial effusion. There are coronary artery calcifications. A tiny hiatal hernia is noted. There is bibasilar scarring/atelectasis. No airspace c onsolidation or pleural effusion is identified. Liver: The contrast-enhanced liver is normal in size, contour, and attenuation. There is no intrahepa tic biliary ductal dilatation. The hepatic veins and portal veins are patent. Gallbladder: Unremarkable. Spleen: Normal in size and attenuation. Pancreas: Moderately atrophic and grossly unremarkable. Adrenal glands: Unremarkable. Kidneys: The contrast enhanced kidneys demonstrate mild cortical atrophy. There is a 7 mm obstructing calculus in the distal left ureter just below the pelvic inlet seen on axial image #275. This causes mild left hydroureteronephrosis. A 14 mm calculus is seen in the left renal pelvis on image #157. Th ere is likely additional nonobstructing left upper pole calculus. The renal collecting systems aren't well evaluated due to early infiltration of IV contrast. There is no right ureteral stone and no hyd ronephrosis is seen on the right. The kidneys enhance symmetrically. There is left-sided perinephric stranding. Abdominal vasculature: The abdominal aorta is normal in course and caliber noting moderate atheroscle rotic calcification. There is deep venous thrombosis identified in the right common femoral vein exte nding to the right superficial femoral vein. This is best seen on axial image #365. Bowel: There is rectosigmoid fecal retention and moderate constipation. No bowel obstruction is seen. Duodenal diverticula are noted. The appendix is well-visualized and normal. Peritoneum: There is no intraperitoneal free air or abdominal ascites. There is a fat-containing umbi lical hernia. Lymphadenopathy: None. Pelvic viscera: The prostate gland is enlarged and heterogeneous. The bladder is distended, and the w all is thickened/trabeculated indicating chronic outlet obstruction. There are small bilateral fat-co ntaining groin hernias. Skeletal structures: The skeletal structures are osteopenic. There is moderate lumbosacral spondylosi s. Degenerative change is also noted in the hips and sacroiliac joints. No lytic or blastic lesions a re seen. Soft tissues: There is infiltration of the subcutaneous soft tissues superficial to the coccyx. No wo und is clearly seen and there is no fluid collection to suggest abscess. IMPRESSION: 1. There is deep venous thrombosis identified in the right common femoral vein. 2. There is a 7 mm obstructing calculus in the distal left ureter. This causes mild left hydrouretero nephrosis. 3. Additional nonobstructing left renal calculi as above. 4. Rectosigmoid fecal retention and moderate constipation. 5. There is subcutaneous soft tissue infiltration superficial to the coccyx. This may correspond to t he reported history of a pressure wound. Correlate with direct visualization. 6. Cardiomegaly. 7. Additional findings as above. ACT 112: Negative or not required by law. Electronically signed by: Augie Barrientos M.D. 06/26/2023 1:10 PM
[2023-06-26] MEDS ORDERED: VANCOMYCIN CONSULT ACTIVE PRN ×2 (13:39→19:33)
--- NOTE | 2023-06-26 13:49 | History & Physical Report ---
Date of Service June 26, 2023 Assessment & Plan (1) Dvt femoral (deep venous thrombosis): Plan: Patient presented for constipation x 5 days; took suppository without relief A DVT in the right common femoral vein was noted on abdomen/pelvic CT Heparin IV with bolus started in the ED Consider bridge in 24-48h Follow a.m. labs (2) Stage III pressure ulcer of left buttock: Plan: Wound care consult Wound care nurse consulted Culture as needed Vancomycin (3) Nephrolithiasis: Plan: 7 mm obstructing calculus in the distal left ureter Urology consulted Urine strainer ordered, pending Acetaminophen as needed for pain Per urology note, potential cystoscopy on 06/27 (4) Constipation: Plan: Abdomen/pelvic CT revealed rectosigmoid fecal retention and moderate constipation MiraLAX, senna Fleet enema as needed (5) Diabetes mellitus type 2 with neurological manifestations: Plan: Last A1c at 7.8% on 02/24/2023 Glucose 139 on admission Hold Sitagliptin Lantus 5 u BID while inpatient SSI; with target BSG range 110-140mg/dL, CF 50, carb ratio 20 N.p.o. for now, then T2DM diet BSG ACHS Adjust regimen as needed AM A1c (6) Parkinsons disease: Plan: Continue Sinemet (7) On prednisone therapy: Plan: For PMR/giant cell arteritis Started at a 20 mg dose patient is currently on taper (reduction of 2.5 mg every 2 weeks) Currently at 12.5 mg daily; continue on this for now (8) Hyperlipidemia: (9) Gastroesophageal reflux disease: Plan Disposition: Admit to PCU telemetry DNR/DNI Keep n.p.o. 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 He presented for constipation x 5 days, as well as lower back pain secondary to his ongoing decubitus ulcer. Last BM was on Tuesday 06/20, and patient reports that he was unable to to void this morning (he last urinated the morning of 06/26 at 2 AM. Patient has a history of kidney stones. He denies flank pain at present, but notes that he was having lower back pain yesterday. He is currently being seen at wound clinic for the past 2.5 months for his decubitus ulcer. He endorses 7/10 lower back pain at present; no radiation; he has not been taking additional pain medications at home. He did not take his regular morning medications today; his helps him manage his medications. He is currently tapering off of prednisone for giant cell arteritis/PMR. He normally takes 10u Lantus in the evenings. He also notes ongoing MOSLEY over the past 3-4 months. He notes that he occasionally has SOB at rest, and that his shortness of breath is worse when lying flat. Uses a walker at baseline for ambulation. He denies recent falls or trauma to the head or neck. He notes he has not been drinking much recently, and that he frequently eats sweets. Mild hypertension 149/94 at time of admission; SpO2 99% on RA. ED course: Vancomycin 1500 mg IV Heparin IV with bolus ROS: Patient endorses MOSLEY, productive cough (white), constipation, lower back pain, rectal pain, N/T going down legs, N/T in groin region, and swelling in feet. Patient denies fever, chills, nightweats, dizziness, lightheadedness, SPEARS, chest pain, chest palpitations, pleuritic CP, hemoptysis, abdominal pain, or N/V/D. Allergies Allergy/AdvReac Type Severity Reaction Status Date / Time doxazosin AdvReac Intermediate TIRED Verified 06/26/23 15:14 lisinopril AdvReac Intermediate COUGH Verified 06/26/23 15:14 Home Medications Medication Instructions Recorded Confirmed Type vitamin B complex 1 tab PO HS 07/06/20 06/26/23 History cholecalciferol (vitamin D3) 25 25 mcg PO HS 08/16/20 06/26/23 History mcg (1,000 unit) capsule lancing device with lancets kit #1 ea 02/25/22 06/26/23 History (My Best Interest[employer] App Lancing Device kit) aspirin 81 mg tablet,delayed 81 mg PO QAM 01/08/23 06/26/23 History release (Gordo Low Dose Aspirin) guar gum 1 tbsp PO QAM 01/09/23 06/26/23 History mirtazapine 7.5 mg tablet 7.5 mg PO DAILY #30 tabs 01/31/23 06/26/23 Rx lancets #200 ea 02/10/23 06/26/23 Rx blood-glucose meter (OneTouch #1 ea 02/12/23 06/26/23 Rx Ultra2 Meter) sitagliptin phosphate 50 mg tablet 50 mg PO QAM #30 tabs 02/12/23 06/26/23 Rx (Januvia) simvastatin 20 mg tablet 20 mg PO QPM #90 tabs 03/13/23 06/26/23 Rx tamsulosin 0.4 mg capsule 0.4 mg PO QAM #90 caps 03/13/23 06/26/23 Rx carbidopa 25 mg-levodopa 100 mg 1.5 tab PO TID 90 days #405 tabs 04/29/23 06/26/23 Rx tablet (Sinemet) finasteride 5 mg tablet 5 mg PO QAM #90 tabs 05/21/23 06/26/23 Rx insulin regular human 100 unit/mL See Rx Instructions subcut BID #2 06/12/23 06/26/23 Rx (3 mL) subcutaneous pen (Novolin R syringes FlexPen) pen needle, diabetic 31 gauge x #100 ea 06/12/23 06/26/23 Rx 3/16" (BD Ultra-Fine Mini Pen Needle) insulin glargine 100 unit/mL (3 15 unit subcut QAM 06/26/23 06/26/23 History mL) subcutaneous pen (Lantus Solostar U-100 Insulin) prednisone 20 mg tablet 12.5 mg PO .TAPER DIRECTED 06/26/23 06/26/23 History Past Med/Surg History Medical History (Updated 06/27/23 @ 08:41 by DANY Acosta) Constipation 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 S ER visit 12/16/22. (see Telephone note 12/20/2022 [facility]) Osteoporosis Osteoarthritis Spinal stenosis Enlarged prostate GERD (gastroesophageal reflux disease) "occasional" DM type 2 (diabetes mellitus, type 2) Hearing deficit BL SPEARS Anxiety and depression PMR (polymyalgia rheumatica) Parkinsons disease Seizure per , suspected seizure during last hospitalization at [facility] 11/2022. HLD (hyperlipidemia) History of kidney stones Unilateral visual loss On prednisone therapy Surgical History History of temporal artery biopsy (01/15/23) Left Temporal Artery Biopsy(Left) - Yevgeniy Su, DO, FACS History of removal of ureteral stent History of cystoscopy w/ stent placement History of cataract surgery History of colonoscopy History of nasal surgery History of nose surgery on CCD Family History Mother Myocardial infarction Coronary heart disease Father Hemorrhage Other Family history non-contributory Denies family history of Ovarian cancer Prostate cancer Breast cancer Colorectal cancer Social History Smoking Status: Former smoker Tobacco Type: Cigarettes Second Hand Exposure: No; Do You Dip or Chew Tobacco: No; Tobacco Cessation Education Requested by Patient: No Hx Alcohol Use: No Hx Substance Use: No Preferred Language: Slovenian Communication Ability: Effective Visual Impairment: No Limitations Hearing Ability: Use of Hearing Aid Integration Aide Required: No Beliefs That Will Affect Care: None marital status: Current Living Situation: Spouse current occupational status: retired How many Children do You have: 1 Other Information That Helps Us Care for You: No Feels Safe at Home: Yes Safety Concerns: Feels Safe At This Time Childhood Exposure to Second-Hand Smoke: No Diet: regular caffeine: Yes during the past year weight has: remained stable Dental Care, Regularly: Yes Physical Activity Frequency: 1-2 Times per Week Physical Activity Frequency Comment: walks Seatbelt Use: always Sunscreen Use: No Assistive Devices: Walker Assistive Devices Comment: hearing aides w/ pt Review of Systems 2 Review of Systems: See HPI above Physical Exam 2 Physical Exam: General: no acute distress; lethargic; non-toxic appearing; well-nourished; cooperative HEENT: normocephalic, atraumatic; no scleral icterus; pupils minimally reactive to light; blind in left eye; EOMs intact; dry mucus membrane; hearing aids in place; hard of hearing Neck: Neck erythema; supple; no JVD; no lymphadenopathy; trachea midline Skin: warm, dry without signs of tenting; no cyanosis; no rashes, bruising, lesions, or erythema noted CV: chest wall NTP; RRR; S1/S2 normal; no murmurs/rubs/gallops; pulses intact and symmetric at radial, DP, and PT Lungs: no acute respiratory distress; symmetrical chest wall expansion; clear breath sounds across all lung driscoll w/o adventitious sounds; no wheezing ABD: Firm, NTP; BS present; no rebound/guarding; moderate distention; positive CVA tenderness on the left side Back: Upper back NTP, lower back TTP, decubitus ulcer stage II just above the rectum (see photos below) MSK: Resting left hand tremor; +2 pitting edema noted in the LEs b/l, nonerythematous; Neuro: A&Ox3; normal mood and affect; fluent speech; no focal deficits; sensation grossly intact in the LEs b/l Results & Data Results & Data Vital Signs (Past 12 Hours) Vital Signs Temp Pulse Pulse Resp BP BP Pulse Ox 06/26/23 13:30 75 18 99 06/26/23 13:20 72 15 99 06/26/23 13:10 72 19 100 06/26/23 13:00 78 19 98 06/26/23 12:59 99 06/26/23 12:30 69 15 06/26/23 12:20 67 15 06/26/23 12:10 75 14 06/26/23 12:00 67 16 06/26/23 11:50 66 15 06/26/23 11:40 78 16 06/26/23 11:30 74 16 06/26/23 11:20 73 16 06/26/23 11:10 69 15 06/26/23 11:00 71 14 06/26/23 10:52 100 06/26/23 10:50 73 17 100 06/26/23 10:42 75 06/26/23 10:40 72 16 98 06/26/23 10:33 75 71 H 149/93 H 06/26/23 10:18 36.6 C 87 18 141/68 H 99 O2 Del Method 06/26/23 13:30 06/26/23 13:20 06/26/23 13:10 06/26/23 13:00 06/26/23 12:59 06/26/23 12:30 06/26/23 12:20 06/26/23 12:10 06/26/23 12:00 06/26/23 11:50 06/26/23 11:40 06/26/23 11:30 06/26/23 11:20 06/26/23 11:10 06/26/23 11:00 06/26/23 10:52 Room Air 06/26/23 10:50 Room Air 06/26/23 10:42 06/26/23 10:40 Room Air 06/26/23 10:33 06/26/23 10:18 Room Air Laboratory Results Abnormal lab results 06/26/23 Range/Units 10:53 WBC 11.73 H (4.8-10.8) K/ul RBC 4.43 L (4.70-6.10) M/uL Hgb 13.4 L (14.0-18.0) g/dl Hct 40.0 L (42.0-52.0) % RDW Std Deviation 48.0 H (36.4-46.3) fL RDW Coeff of Sierra 14.7 H (11.5-14.5) % Neut # (Auto) 9.25 H (1.40-6.50) K/uL Dickens # (Auto) 0.83 H (0.11-0.59) K/uL BUN 25 H (6-23) mg/dl BUN/Creatinine Ratio 21.9 H (10-20) Glucose 139 H (70-99(Fasting)) mg/dl Globulin 2.1 L (2.5-4.0) gm/dl Diagnostic Findings Abdomen/Pelvis CT 06/26/23 10:34 CT SCAN OF THE ABDOMEN AND PELVIS WITH IV CONTRAST CLINICAL HISTORY: Constipation. Pressure wound. COMPARISON STUDY: Abdominal CT dated 11/09/2022. TECHNIQUE: Following the IV administration of 88 cc of Optiray 320, CT scan of the abdomen and pelvis is performed from the lung bases to the proximal femora. Images are reviewed in the axial, sagittal, and coronal planes. IV contrast was administered without complication. A dose lowering technique was utilized adhering to the principles of ALARA. CT DOSE: 851.06 mGy.cm FINDINGS: Lung bases: The heart is mildly enlarged and without pericardial effusion. There are coronary artery calcifications. A tiny hiatal hernia is noted. There is bibasilar scarring/atelectasis. No airspace consolidation or pleural effusion is identified. Liver: The contrast-enhanced liver is normal in size, contour, and attenuation. There is no intrahepatic biliary ductal dilatation. The hepatic veins and portal veins are patent. Gallbladder: Unremarkable. Spleen: Normal in size and attenuation. Pancreas: Moderately atrophic and grossly unremarkable. Adrenal glands: Unremarkable. Kidneys: The contrast enhanced kidneys demonstrate mild cortical atrophy. There is a 7 mm obstructing calculus in the distal left ureter just below the pelvic inlet seen on axial image #275. This causes mild left hydroureteronephrosis. A 14 mm calculus is seen in the left renal pelvis on image #157. There is likely additional nonobstructing left upper pole calculus. The renal collecting systems aren't well evaluated due to early infiltration of IV contrast. There is no right ureteral stone and no hydronephrosis is seen on the right. The kidneys enhance symmetrically. There is left-sided perinephric stranding. Abdominal vasculature: The abdominal aorta is normal in course and caliber noting moderate atherosclerotic calcification. There is deep venous thrombosis identified in the right common femoral vein extending to the right superficial femoral vein. This is best seen on axial image #365. Bowel: There is rectosigmoid fecal retention and moderate constipation. No bowel obstruction is seen. Duodenal diverticula are noted. The appendix is well- visualized and normal. Peritoneum: There is no intraperitoneal free air or abdominal ascites. There is a fat-containing umbilical hernia. Lymphadenopathy: None. Pelvic viscera: The prostate gland is enlarged and heterogeneous. The bladder is distended, and the wall is thickened/trabeculated indicating chronic outlet obstruction. There are small bilateral fat-containing groin hernias. Skeletal structures: The skeletal structures are osteopenic. There is moderate lumbosacral spondylosis. Degenerative change is also noted in the hips and sacroiliac joints. No lytic or blastic lesions are seen. Soft tissues: There is infiltration of the subcutaneous soft tissues superficial to the coccyx. No wound is clearly seen and there is no fluid collection to suggest abscess. IMPRESSION: 1. There is deep venous thrombosis identified in the right common femoral vein. 2. There is a 7 mm obstructing calculus in the distal left ureter. This causes mild left hydroureteronephrosis. 3. Additional nonobstructing left renal calculi as above. 4. Rectosigmoid fecal retention and moderate constipation. 5. There is subcutaneous soft tissue infiltration superficial to the coccyx. This may correspond to the reported history of a pressure wound. Correlate with direct visualization. 6. Cardiomegaly. 7. Additional findings as above. ACT 112: Negative or not required by law. Electronically signed by: Augie Barrientos M.D. 06/26/2023 1:10 PM Code Status & VTE Plan Code Status DNR/DNI VTE Prophylaxis Plan VTE Prophylaxis will be ordered: Yes Supervising Physician Co-Signing Physician Notes Patient seen and examined, chart reviewed, case discussed with Dusty Pina PA-C and I agree with the assessment and plan as above except as otherwise noted Labs and images reviewed 82-year-old male past medical history of GCA/PMR/unilateral vision loss, sacral decubitus ulcer, Parkinson's, BPH, GERD was found to have a right common femoral DVT, obstructive 7 Ureteral calculus with mild hydro no NAMRATA, and a pressure wound of the buttock with concern for purulent discharge covered on vancomycin. Patient is treated for his DVT with heparin drip. Given discomfort and suspected pain from renal stone with hydro urology has been consulted. UA is pending. Vancomycin started for buttock coverage as above, if UTI is present expand with Rocephin for UTI/Pseudomonas coverage. Agree with assessment and management otherwise as above PG Care Time/CCT Total # of Minutes Spent Total Time Spent with Patient: Total time spent is greater than 50% in coordination of care (as documented) at patient's floor/unit and/or counseling patient: Coding [place] [address] INT INP/OBS CARE 3/75MIN Patient Type Established Medical Decision Making High Complexity Diagnoses Dvt femoral (deep venous thrombosis) I82.419 Stage III pressure ulcer of left buttock L89.323 Nephrolithiasis N20.0 Constipation K59.00 Diabetes mellitus type 2 with neurological manifestations E11.49 Parkinsons disease G20 On prednisone therapy Z79.52 Hyperlipidemia, unspecified hyperlipidemia type E78.5 Hyperlipidemia type: unspecified Gastroesophageal reflux disease K21.9 (8) Hyperlipidemia Hyperlipidemia type: unspecified Qualified Code(s): E78.5 - Hyperlipidemia, unspecified
[2023-06-26] MEDS: HEPARIN SOD (PORCINE) 1000 UNIT/ML IV ONE (14:35)
[2023-06-26] MEDS: HEPARIN SODIUM/DEXTROSE 25,000 UNITS/500 ML BAG IV SCH (14:36)
[2023-06-26] MEDS: Heparin IV Adult Wt-Based Standard w/ INITIAL Bolus Protocol IV STA (14:36)
[2023-06-26 14:49] LABS: ANTI-Xa, UFH(UnfractionatedHep < 0.10 IU/ml (0.3-0.7); Partial Thromboplastin Ratio 0.8; Partial Thromboplastin Time 23 Seconds (21-31); Prothrombin Time 11.4 Seconds (9.0-12.0)
[2023-06-26] MEDS: ACETAMINOPHEN 325 MG TAB PO STA (15:16)
[2023-06-26] MEDS: VANCOMYCIN HCL 1,500 MG in SODIUM CHLORIDE 0.9% 500 ML IV ONE (16:44)
[2023-06-26] MEDS: MIRTAZAPINE TAB 15 MG TAB PO ONE (16:45)
[2023-06-26] MEDS: FINASTERIDE 5 MG TAB PO ONE (16:45)
[2023-06-26] MEDS: TAMSULOSIN HCL 0.4 MG CAP PO ONE (16:45)
[2023-06-26] MEDS ORDERED: SOD PHOSPHATE/SOD BIPHOSPHATE ENEMA 132 ML BTL PR PRN (19:33)
[2023-06-26] MEDS ORDERED: GLUCAGON FOR INJ 1 MG VIAL SQ PRN (19:33)
[2023-06-26] MEDS ORDERED: ONDANSETRON INJ 2 MG/ML 2 ML VIAL IV PRN (19:33)
[2023-06-26] MEDS ORDERED: GLUCOSE 10 TAB/TUBE PO PRN (19:33)
[2023-06-26] MEDS ORDERED: DEXTROSE 50% 50 ML SYRINGE IV PRN (19:33)
[2023-06-26] MEDS ORDERED: GLUCOSE 40% GEL 15 GM TUBE PO PRN (19:33)
[2023-06-26] MEDS: INSULIN ASPART PER UNIT CHARGE SC SCH (20:47)
--- NOTE | 2023-06-26 21:10 | Urology Consultation ---
Date of Consultation June 26, 2023 Assessment & Plan (1) Renal colic: The patient has been admitted on the hospital service. We recommend proceeding as follows from a urologic perspective: Provide analgesics provide antiemetics Provide IV fluid for hydration Patient did note that he could not completely empty his bladder therefore Foster catheter has been placed. Would recommend continuing this for the present time Flomax has been started for expulsive therapy Patient is currently seeking antibiotics in form of vancomycin for a buttock wound. I would recommend obtaining a urinalysis and urine culture as this has not yet been done. I will order this and antibiotics can be tailored appropriately based on these results Would recommend making patient n.p.o. after midnight he will be reevaluated on 06/27/2023 for potential cystoscopy At the present time the patient is normotensive without tachycardia, fever, or leukocytosis. He also does not exhibit acute kidney injury and therefore I do not feel an urgent urologic procedure is required at this time Additional recommendations be forthcoming based on his clinical course as it unfolds. History of Present Illness Reason for Consultation: Nephrolithiasis Attending Physician: Bandar Bryson MD History of Present Illness On the right-hand side with some radiation to the front of his abdomen. Patient has noted some urinary frequency but denies any hematuria or dysuria. Patient also feels as though he was not emptying his bladder completely over the past few days. He denies any fevers, shakes, or chills. He does not report any mitigating factors to his pain. Patient does report he has a previous history of kidney stones. Since arrival to hospital this patient is having labs and imaging which I independent reviewed. A CT scan of the abdomen pelvis was performed that showed patient had a 7 mm obstructing kidney stone in the distal left ureter resulting in hydronephrosis. Labs include a CBC her white blood cell count was elevated at 11.7. Hemoglobin and hematocrit 13.4 and 40.0. Platelet count is within normal range. Coagulation studies are noted to be normal. Chemistry profile showed sodium and potassium along with a creatinine were normal. There is a slight elevation of the BUN at 25. There is no elevation of patient's LFTs or lipase. At the time of my interview the patient was resting comfortably in bed he was no distress. Allergies Allergy/AdvReac Type Severity Reaction Status Date / Time doxazosin AdvReac Intermediate TIRED Verified 06/26/23 15:14 lisinopril AdvReac Intermediate COUGH Verified 06/26/23 15:14 Home Medications Medication Instructions Recorded Confirmed Type vitamin B complex 1 tab PO HS 07/06/20 06/26/23 History cholecalciferol (vitamin D3) 25 25 mcg PO HS 08/16/20 06/26/23 History mcg (1,000 unit) capsule lancing device with lancets kit #1 ea 02/25/22 06/26/23 History ([employer] Lancing Device kit) aspirin 81 mg tablet,delayed 81 mg PO QAM 01/08/23 06/26/23 History release (Gordo Low Dose Aspirin) guar gum 1 tbsp PO QAM 01/09/23 06/26/23 History mirtazapine 7.5 mg tablet 7.5 mg PO DAILY #30 tabs 01/31/23 06/26/23 Rx lancets #200 ea 02/10/23 06/26/23 Rx blood-glucose meter ([employer]Touch #1 ea 02/12/23 06/26/23 Rx Ultra2 Meter) sitagliptin phosphate 50 mg tablet 50 mg PO QAM #30 tabs 02/12/23 06/26/23 Rx (Januvia) simvastatin 20 mg tablet 20 mg PO QPM #90 tabs 03/13/23 06/26/23 Rx tamsulosin 0.4 mg capsule 0.4 mg PO QAM #90 caps 03/13/23 06/26/23 Rx carbidopa 25 mg-levodopa 100 mg 1.5 tab PO TID 90 days #405 tabs 04/29/23 06/26/23 Rx tablet (Sinemet) finasteride 5 mg tablet 5 mg PO QAM #90 tabs 05/21/23 06/26/23 Rx insulin regular human 100 unit/mL See Rx Instructions subcut BID #2 06/12/23 06/26/23 Rx (3 mL) subcutaneous pen (Novolin R syringes FlexPen) pen needle, diabetic 31 gauge x #100 ea 06/12/23 06/26/23 Rx 3/16" (BD Ultra-Fine Mini Pen Needle) insulin glargine 100 unit/mL (3 15 unit subcut QAM 06/26/23 06/26/23 History mL) subcutaneous pen (Lantus Solostar U-100 Insulin) prednisone 20 mg tablet 12.5 mg PO .TAPER DIRECTED 06/26/23 06/26/23 History Patient History Medical History 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 [facility] ER visit 12/16/22. (see Telephone note 12/20/2022 [facility]) Osteoporosis Osteoarthritis Spinal stenosis Enlarged prostate GERD (gastroesophageal reflux disease) "occasional" DM type 2 (diabetes mellitus, type 2) Hearing deficit BL SPEARS Anxiety and depression PMR (polymyalgia rheumatica) Parkinsons disease Seizure per , suspected seizure during last hospitalization at [facility] 11/2022. HLD (hyperlipidemia) History of kidney stones Unilateral visual loss On prednisone therapy Surgical History History of temporal artery biopsy (01/15/23) Left Temporal Artery Biopsy(Left) - Yevgeniy Su, DO, FACS History of removal of ureteral stent History of cystoscopy w/ stent placement History of cataract surgery History of colonoscopy History of nasal surgery History of nose surgery on CCD Family History Mother Myocardial infarction Coronary heart disease Father Hemorrhage Other Family history non-contributory Denies family history of Ovarian cancer Prostate cancer Breast cancer Colorectal cancer Social History Smoking Status: Former smoker Tobacco Type: Cigarettes Second Hand Exposure: No; Do You Dip or Chew Tobacco: No; Tobacco Cessation Education Requested by Patient: No Hx Alcohol Use: No Hx Substance Use: No Preferred Language: Kazakh Communication Ability: Effective Visual Impairment: No Limitations Hearing Ability: Use of Hearing Aid 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 Specialist Required: No Beliefs That Will Affect Care: None marital status: Current Living Situation: Spouse current occupational status: retired How many Children do You have: 1 Other Information That Helps Us Care for You: No Feels Safe at Home: Yes Safety Concerns: Feels Safe At This Time Childhood Exposure to Second-Hand Smoke: No Diet: regular caffeine: Yes during the past year weight has: remained stable Dental Care, Regularly: Yes Physical Activity Frequency: 1-2 Times per Week Physical Activity Frequency Comment: walks Seatbelt Use: always Sunscreen Use: No Assistive Devices: Glasses, Hearing Aid - Bilateral and Walker Assistive Devices Comment: hearing aides w/ pt Review of Systems Constitutional: no fever and no chills Ear, Nose, Mouth, Throat: no hearing loss Respiratory: no cough and no dyspnea Cardiovascular: no chest pain Gastrointestinal: + abdominal pain (Radiating from right f lank) Genitourinary: + as per Subjective / HPI Musculoskeletal: + back pain (Right flank) Integumentary: no rash Neurologic: no localized weakness Physical Exam Constitutional: WD/WN, vitals as above ENMT: Ears: no hearing impairment Neck: trachea midline Respiratory: normal respiratory effort; no respiratory distress and no labored breathing Cardiovascular: Rate/Rhythm: regular rate and regular rhythm Gastrointestinal (Abdomen): At the time of my exam the patient's abdomen is soft and nondistended. There is no tenderness to palpation. Musculoskeletal: No calf tenderness Skin: no rashes Neurologic: moves all extremities Psychiatric: A+Ox3, euthymic affect Genitourinary: No CVA tenderness noted with percussion bilaterally. Foster catheter is in place draining clear yellow urine. Results & Data Vital Signs (Past 12 Hours) Vital Signs Temp Pulse Pulse Resp BP BP Pulse Ox 06/26/23 19:33 06/26/23 19:33 06/26/23 18:30 70 14 119/65 99 06/26/23 18:00 73 16 116/64 98 06/26/23 17:30 69 14 122/66 97 06/26/23 16:30 84 12 161/103 H 98 06/26/23 16:20 82 13 97 06/26/23 16:10 78 12 06/26/23 16:00 80 8 L 06/26/23 16:00 148/77 H 06/26/23 15:12 79 14 151/80 H 99 06/26/23 15:06 162/94 H 06/26/23 15:00 23 184/86 H 06/26/23 14:00 74 15 149/94 H 99 06/26/23 13:37 74 24 141/76 H 98 06/26/23 13:30 75 18 99 06/26/23 13:20 72 15 99 06/26/23 13:10 72 19 100 06/26/23 13:00 78 19 98 06/26/23 12:59 99 06/26/23 12:30 69 15 06/26/23 12:20 67 15 06/26/23 12:10 75 14 06/26/23 12:00 67 16 06/26/23 11:50 66 15 06/26/23 11:40 78 16 06/26/23 11:30 74 16 06/26/23 11:20 73 16 06/26/23 11:10 69 15 06/26/23 11:00 71 14 06/26/23 10:52 100 06/26/23 10:50 73 17 100 06/26/23 10:42 75 06/26/23 10:40 72 16 98 06/26/23 10:33 75 71 H 149/93 H 06/26/23 10:18 36.6 C 87 18 141/68 H 99 O2 Del Method 06/26/23 19:33 Room Air 06/26/23 19:33 Room Air 06/26/23 18:30 Room Air 06/26/23 18:00 Room Air 06/26/23 17:30 Room Air 06/26/23 16:30 Room Air 06/26/23 16:20 Room Air 06/26/23 16:10 06/26/23 16:00 06/26/23 16:00 06/26/23 15:12 Room Air 06/26/23 15:06 06/26/23 15:00 06/26/23 14:00 Room Air 06/26/23 13:37 Room Air 06/26/23 13:30 06/26/23 13:20 06/26/23 13:10 06/26/23 13:00 06/26/23 12:59 06/26/23 12:30 06/26/23 12:20 06/26/23 12:10 06/26/23 12:00 06/26/23 11:50 06/26/23 11:40 06/26/23 11:30 06/26/23 11:20 06/26/23 11:10 06/26/23 11:00 06/26/23 10:52 Room Air 06/26/23 10:50 Room Air 06/26/23 10:42 06/26/23 10:40 Room Air 06/26/23 10:33 06/26/23 10:18 Room Air PG Care Time/CCT Total # of Minutes Spent Total Time Spent with Patient: Total time spent is greater than 50% in coordination of care (as documented) at patient's floor/unit and/or counseling patient: Coding Level of Care Code 83343 INT INP/OBS CARE MIN Diagnoses Renal colic N23
[2023-06-26] MEDS: CARBIDOPA/LEVODOPA 25/100MG TAB PO SCH (21:21)
[2023-06-26] MEDS: SENNA 8.6 MG TAB PO SCH (21:26)
[2023-06-26] MEDS: SIMVASTATIN 20 MG TAB PO SCH (21:27)
[2023-06-26 21:41] LABS: ANTI-Xa, UFH(UnfractionatedHep 0.93 IU/ml (0.3-0.7)
[2023-06-26] MEDS: LANTUS PER UNIT CHARGE SQ SCH (21:46)
[2023-06-27 02:58] LABS: Appearance Urine Turbid (Clear); Bilirubin Urine Negative (Negative); Blood Urine 3+ (Negative); Color Urine Yellow; Epithelial Cell Urine Auto 0-5 /lpf (0-5); Glucose Urine UA Negative (Negative); Ketones Urine Trace (Negative); Leukocyte Esterase Urine 2+ (Negative); Nitrite Urine Negative (Negative); Protein Urine 1+ (Negative); Specific Gravity Urine 1.032 (1.000-1.030); Urobilinogen Urine Negative (Negative); WBC Urine Automated >30 /hpf (0-5)
[2023-06-27 03:08] LABS: Bacteria Urine Automated 1+ (Negative); RBC Urine Automated >30 /hpf (0-4)
[2023-06-27] MEDS ORDERED: VANCOMYCIN HCL 1,500 MG in SODIUM CHLORIDE 0.9% 500 ML IV SCH (05:00)
[2023-06-27 06:12] LABS: Basophils # (auto) 0.03 K/uL (0.00-0.20); Basophils % (auto) 0.3 %; Eosinophils # (auto) 0.02 K/uL (0.00-0.50); Eosinophils % (auto) 0.2 %; Hematocrit (blood only) 38.3 % (42.0-52.0); Hemoglobin 13.1 g/dl (14.0-18.0); Immature Granulocytes # (auto) 0.05 K/uL (0.01-0.20); Immature Granulocytes % (auto) 0.5 %; Lymphocytes # (auto) 1.39 K/uL (1.20-3.40); Lymphocytes % (auto) 13.2 %; Mean Corpuscular Hemoglobin 30.4 pg (25.0-34.0); Mean Corpuscular Hgb Conc 34.2 g/dL (32.0-36.0); Mean Corpuscular Volume 88.9 fL (80.0-100.0); Mean Platelet Volume 9.3 fL (9.4-12.4); Monocytes # (auto) 0.78 K/uL (0.11-0.59); Monocytes % (auto) 7.4 %; Neutrophils # (auto) 8.23 K/uL (1.40-6.50); Neutrophils % (auto) 78.4 %; Platelet Count 150 K/uL (130-400); RDW Coefficient of Variation 14.9 % (11.5-14.5); RDW Standard Deviation 47.8 fL (36.4-46.3); Red Blood Count 4.31 M/uL (4.70-6.10)
[2023-06-27 06:22] LABS: BUN Creatinine Ratio 16.8 (10-20); Calcium 8.5 mg/dl (8.6-10.3); Creatinine Clr Calc Pharmacy 52.3 ml/min; Est GFR (Non-African American) 63.9 ml/min; Potassium 3.8 mmol/L (3.5-5.1)
[2023-06-27 06:46] LABS: ANTI-Xa, UFH(UnfractionatedHep 0.74 IU/ml (0.3-0.7)
--- NOTE | 2023-06-27 07:16 | Hospitalist Progress Note ---
Date of Service June 27, 2023 Assessment & Plan (1) Dvt femoral (deep venous thrombosis): Plan: Patient presented for constipation x 5 days; took suppository without relief A DVT in the right common femoral vein was noted on abdomen/pelvic CT Heparin IV with bolus started in the ED continued surrounding his recent cystoscopy for ease of discontinuation of hematuria with persistent (2) Stage III pressure ulcer of left buttock: Plan: present on admission, concern for cellulitis Wound care consult previous grew MRSA, in march grew pseudomonas Culture as needed Vancomycin, consider gram negative coverage (3) Nephrolithiasis: Plan: 7 mm obstructing calculus in the distal left ureter Urology consulted, cystoscopy with stenting with outpatient definitive care for stone once discharged Acetaminophen as needed for pain (4) Constipation: Plan: Abdomen/pelvic CT revealed rectosigmoid fecal retention and moderate constipation MiraLAX, senna with good results of stool Fleet enema as needed (5) Diabetes mellitus type 2 with neurological manifestations: Plan: Last A1c at 7.8% on 02/24/2023 Glucose 139 on admission Hold Sitagliptin Lantus 5 u BID while inpatient SSI; with target BSG range 110-140mg/dL, CF 50, carb ratio 20 AM A1c (6) Parkinsons disease: Plan: Continue Sinemet As 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 Patient well need symptom control for agitation at times with Haldol (7) On prednisone therapy: Plan: For PMR/giant cell arteritis Started at a 20 mg dose patient is currently on taper (reduction of 2.5 mg every 2 weeks) Currently at 12.5 mg daily; continue on this for now Be cautious for adrenal crisis from steroid deficiency Plan suspected Urinary tract infection present on admission cultures are pendingempirically on vancomycin for wound previous Pseudomonas in urine in March will add cefepime DNR/DNI VTE PPx: Heparin IV with bolus Admission and Anticipated Discharge Date Admission Date: June 26, 2023 Subjective Family present at the bedside endorses recent confusion and having visual hallucination as well as in the room. 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 Family feels he has had some progression of Parkinson's dementia over the last few months He denies having any flank pain from his renal stone He denies having any leg pain from his new onset DVT His functional status has declined at home and will need evaluation for PT, family states that he typically does walk slightly with a walker and can typically transfer from chairs but this has been declined over the last few days to weeks. His family's been dealing with his decubitus ulcer which also has worsened over the last few days Physical Exam Physical Exam: Pleasantly confused but redirectable gentleman. Appears visually impaired does not follow or track Cardiac exam is regular without murmurs Lungs are clear respiratory status is unlabored Abdomen is with NABS soft and nontender Results & Data Results & Data Vital Signs (Past 12 Hours) Vital Signs Temp Pulse Pulse Resp BP Pulse Ox O2 Del Method 06/27/23 02:50 97.9 F 73 18 111/71 97 Room Air 06/26/23 22:53 97.9 F 71 18 112/64 96 Room Air 06/26/23 22:00 81 06/26/23 19:33 Room Air 06/26/23 19:33 Room Air Laboratory Results Reviewed CBC chemistry urinalysis. Urine culture is pending. PG Care Time/CCT Total # of Minutes Spent Total Time Spent with Patient: Total time spent is greater than 50% in coordination of care (as documented) at patient's floor/unit and/or counseling patient: Coding Level of Care Code 38311 SUB INP/OBS CARE 3/50MIN Diagnoses Dvt femoral (deep venous thrombosis) I82.419 Stage III pressure ulcer of left buttock L89.323 Nephrolithiasis N20.0 Constipation K59.00 Diabetes mellitus type 2 with neurological manifestations E11.49 Parkinsons disease G20 On prednisone therapy Z79.52
[2023-06-27 08:16] LABS: Estimated Average Glucose 209 mg/dl; Hemoglobin A1C 8.9 % (4.5-5.6)
--- NOTE | 2023-06-27 08:39 | Urology Progress Note ---
<Statement entered by Raul Bond MD - 06/27/23 10:29> I have discussed Mr. Dasilva's case with DANY Maldonado and agree with the above documentation. Urinalysis with some signs suggestive of infection. CT scan demonstrated a left-sided ureteral stone with associated left hydronephrosis. We will plan for cystoscopy, left retrograde pyelogram and left ureteral stent placement. -Raul Bond MD. Date of Service June 27, 2023 Assessment & Plan (1) Calculus of distal left ureter: Plan: Follow-up of obstructing 7 mm left distal ureteral stone Patient afebrile and hemodynamically stable Labscreatinine 1.07, WBC 10.5, hemoglobin 13.1 Urinalysis with 2+ leukocyte esterase, >30 WBC, >30 RBC, 1+ bacteria Urine culture pending Currently on Vancomycin for pressure ulcer of buttock Given obstructing ureteral stone and concern for possible infection, we discussed left ureteral stent placement Ureteral stents were discussed in detail Discussed need for stone treatment at a later date Discussed plan of care with patient's and daughter and they are agreeable to proceed Proceed with cystoscopy, retrograde pyelogram and left ureteral stent placement today Keep NPO for procedure Risks and benefits to be reviewed with patient/family by Dr. Bond Patient can remain on Heparin prior to surgery Continue with supportive care and medical management per primary team will follow Admission and Anticipated Discharge Date Admission Date: June 26, 2023 Subjective Patient seen and examined at bedside, chart reviewed Patient awake and resting in bed Reports some mild left flank discomfort, improved since arrival Foster patent and draining clear yellow urine Denies nausea/vomiting Denies fever/chills Currently NPO Review of Systems Constitutional: as per Subjective / HPI Gastrointestinal: as per Subjective / HPI Genitourinary: + as per Subjective / HPI Physical Exam Constitutional: well developed and well nourished; no acute distress Respiratory: normal respiratory effort; no respiratory distress and no labored breathing Gastrointestinal (Abdomen): Inspection/Auscultation: abdomen normal to inspection Musculoskeletal: Head/Neck/Chest: normocephalic Neurologic: moves all extremities and awake Psychiatric: Orientation: alert and oriented to person Genitourinary: Foster patent and draining clear yellow urine Results & Data Vital Signs (Past 12 Hours) Vital Signs Temp Pulse Pulse Resp BP Pulse Ox O2 Del Method 06/27/23 08:09 36.4 C L 91 H 18 144/62 H 98 Room Air 06/27/23 02:50 36.6 C 73 18 111/71 97 Room Air 06/26/23 22:53 36.6 C 71 18 112/64 96 Room Air 06/26/23 22:00 81 PG Care Time/CCT Total # of Minutes Spent Total Time Spent with Patient: Total time spent is greater than 50% in coordination of care (as documented) at patient's floor/unit and/or counseling patient: Coding Level of Care Code 12831 SUB INP/OBS CARE 2/35MIN Diagnoses Calculus of distal left ureter N20.1
[2023-06-27] MEDS: MIRTAZAPINE TAB 15 MG TAB PO SCH (09:25)
[2023-06-27] MEDS: predniSONE 5 MG TAB PO SCH (09:25)
[2023-06-27] MEDS: ASPIRIN 81 MG ECTAB PO SCH (09:26)
[2023-06-27] MEDS: FINASTERIDE 5 MG TAB PO SCH (09:27)
[2023-06-27] MEDS: TAMSULOSIN HCL 0.4 MG CAP PO SCH (09:27)
[2023-06-27] MEDS: VANCOMYCIN HCL 1,250 MG in SODIUM CHLORIDE 0.9% 250 ML IV SCH (09:30)
[2023-06-27] MEDS: POLYETHYLENE (MIRALAX) 17 GM PACK PO SCH (09:33)
--- NOTE | 2023-06-27 12:44 | Anesthesiology Consultation ---
Date of Service June 27, 2023 History Surgery Operation Date: 06/27/23 13:25 Proposed Procedures p Cystoscopy, Retrograde Pyelograms, Left Ureteral Stent Placement - Raul Bond MD Height/Weight Height: 5 ft 9 in Weight: 75.6 kg Allergies Allergy/AdvReac Type Severity Reaction Status Date / Time doxazosin AdvReac Intermediate TIRED Verified 06/26/23 15:14 lisinopril AdvReac Intermediate COUGH Verified 06/26/23 15:14 Medications Home Medications Medication Instructions Recorded Confirmed Last Taken vitamin B complex 1 tab PO HS 07/06/20 06/26/23 01/14/23 21:00 cholecalciferol (vitamin D3) 25 25 mcg PO HS 08/16/20 06/26/23 01/14/23 21:00 mcg (1,000 unit) capsule lancing device with lancets kit #1 ea 02/25/22 06/26/23 Unknown ([employer] Lancing Device kit) aspirin 81 mg tablet,delayed 81 mg PO QAM 01/08/23 06/26/23 06/25/23 release (Gordo Low Dose Aspirin) guar gum 1 tbsp PO QAM 01/09/23 06/26/23 Unknown mirtazapine 7.5 mg tablet 7.5 mg PO DAILY #30 tabs 01/31/23 06/26/23 Unknown lancets #200 ea 02/10/23 06/26/23 Unknown blood-glucose meter ([employer] #1 ea 02/12/23 06/26/23 Unknown Ultra2 Meter) sitagliptin phosphate 50 mg tablet 50 mg PO QAM #30 tabs 02/12/23 06/26/23 06/25/23 (Januvia) simvastatin 20 mg tablet 20 mg PO QPM #90 tabs 03/13/23 06/26/23 06/25/23 tamsulosin 0.4 mg capsule 0.4 mg PO QAM #90 caps 03/13/23 06/26/23 06/25/23 carbidopa 25 mg-levodopa 100 mg 1.5 tab PO TID 90 days #405 tabs 04/29/23 06/26/23 06/25/23 18:00 tablet (Sinemet) finasteride 5 mg tablet 5 mg PO QAM #90 tabs 05/21/23 06/26/23 06/25/23 insulin regular human 100 unit/mL See Rx Instructions subcut BID #2 06/12/23 06/26/23 06/25/23 (3 mL) subcutaneous pen (Novolin R syringes FlexPen) pen needle, diabetic 31 gauge x #100 ea 06/12/23 06/26/23 Unknown 3" (BD Ultra-Fine Mini Pen Needle) insulin glargine 100 unit/mL (3 15 unit subcut QAM 06/26/23 06/26/23 06/25/23 mL) subcutaneous pen (Lantus Solostar U-100 Insulin) prednisone 20 mg tablet 12.5 mg PO .TAPER DIRECTED 06/26/23 06/26/23 06/25/23 Active Medications Generic Name Dose Route Start Last Admin Trade Name Freq PRN Reason Stop Dose Admin Aspirin 81 mg 06/27/23 09:00 06/27/23 09:26 Aspirin 81 Mg Ectab PO 07/27/23 08:59 81 mg QAM [place] Administration Carbidopa/Levodopa 1.5 tab 06/26/23 21:00 06/27/23 09:28 Carbidopa/Levodopa 25/100mg Tab PO 07/26/23 20:59 1.5 tab TID [place] Administration Finasteride 5 mg 06/27/23 09:00 06/27/23 09:27 Finasteride 5 Mg Tab PO 07/27/23 08:59 5 mg QAM [place] Administration Heparin Sodium/Dextrose 25,000 units in 500 mls @ 21 mls/hr 06/26/23 14:00 06/27/23 07:00 Heparin Sodium/Dextrose IV 07/26/23 13:59 1,050 units/hr .[id number] [place] 21 mls/hr Titration Protocol 1,050 UNITS/HR Vancomycin HCl 1,250 mg/ 275 mls @ 200 mls/hr 06/27/23 08:00 06/27/23 09:30 Sodium Chloride IV 07/04/23 07:59 200 mls/hr DAILY@0800 [place] Administration Insulin Aspart 0 units 06/26/23 19:33 06/27/23 12:27 Insulin Aspart Per Unit Charge SC 07/26/23 19:32 Not Given ACHS [place] Insulin Glargine 5 units 06/26/23 21:00 06/27/23 09:23 Lantus Per Unit Charge SQ 07/26/23 20:59 5 units BID [place] Administration Mirtazapine 7.5 mg 06/27/23 09:00 06/27/23 09:25 Mirtazapine Tab 15 Mg Tab PO 07/27/23 08:59 7.5 mg DAILY [place] Administration Polyethylene Glycol 17 gm 06/27/23 09:00 06/27/23 09:33 Polyethylene (Miralax) 17 Gm Pack PO 07/27/23 08:59 Not Given DAILY [place] Prednisone 12.5 mg 06/27/23 09:00 06/27/23 09:25 Prednisone 5 Mg Tab PO 07/27/23 08:59 12.5 mg DAILY [place] Administration Sennosides 17.2 mg 06/26/23 21:00 06/26/23 21:26 Senna 8.6 Mg Tab PO 07/26/23 20:59 17.2 mg HS [place] Administration Simvastatin 20 mg 06/26/23 21:00 06/26/23 21:27 Simvastatin 20 Mg Tab PO 07/26/23 20:59 20 mg QPM [place] Administration Tamsulosin HCl 0.4 mg 06/27/23 09:00 06/27/23 09:27 Tamsulosin Hcl 0.4 Mg Cap PO 07/27/23 08:59 0.4 mg QAM [place] Administration Past Medical History Medical History (Updated 06/27/23 @ 08:41 by DANY Acosta) Constipation 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 [facility] ER visit 12/16/22. (see Telephone note 12/20/2022 [facility]) Osteoporosis Osteoarthritis Spinal stenosis Enlarged prostate GERD (gastroesophageal reflux disease) "occasional" DM type 2 (diabetes mellitus, type 2) Hearing deficit BL SPEARS Anxiety and depression PMR (polymyalgia rheumatica) Parkinsons disease Seizure per , suspected seizure during last hospitalization at [facility] 11/2022. HLD (hyperlipidemia) History of kidney stones Unilateral visual loss On prednisone therapy Past Family History Family History Mother Myocardial infarction Coronary heart disease Father Hemorrhage Other Family history non-contributory Denies family history of Ovarian cancer Prostate cancer Breast cancer Colorectal cancer Past Surgical History Surgical History History of temporal artery biopsy (01/15/23) Left Temporal Artery Biopsy(Left) - Yevgeniy Su, DO, FACS History of removal of ureteral stent History of cystoscopy w/ stent placement History of cataract surgery History of colonoscopy History of nasal surgery History of nose surgery on CCD Social History Smoking Status: Former smoker Do You Dip or Chew Tobacco: No Hx Alcohol Use: No Hx Substance Use: No substance use type: does not use Physical Exam Vital Signs Last Vital Signs Temp 36.7 C 06/27/23 11:35 Pulse 81 06/27/23 11:35 Resp 18 06/27/23 11:35 BP 132/70 06/27/23 11:35 Pulse Ox 97 06/27/23 11:35 O2 Del Method Room Air 06/27/23 11:35 Testing Laboratory Results 06/27/23 05:47 06/27/23 05:47 PT 11.4 Seconds (9.0-12.0) 06/26/23 10:53 INR 1.0 (0.9-1.1) 06/26/23 10:53 APTT 23 Seconds (21-31) 06/26/23 10:53 Hemoglobin A1c 8.9 % (4.5-5.6) H 06/27/23 05:47 Urine Color Yellow 06/27/23 02:42 Urine Appearance Turbid (Clear) A 06/27/23 02:42 Urine pH 5.0 (4.5-7.5) 06/27/23 02:42 Ur Specific [place] 1.032 (1.000-1.030) H 06/27/23 02:42 Urine Protein 1+ (Negative) H 06/27/23 02:42 Urine Glucose (UA) Negative (Negative) 06/27/23 02:42 Urine Ketones Trace (Negative) H 06/27/23 02:42 Urine Nitrite Negative (Negative) 06/27/23 02:42 Ur Leukocyte Esterase 2+ (Negative) H 06/27/23 02:42 Urine WBC (Auto) >30 /hpf (0-5) H 06/27/23 02:42 Urine RBC (Auto) >30 /hpf (0-4) H 06/27/23 02:42 U Hyaline Cast (Auto) 1-5 /lpf (0-5) 06/27/23 02:42 U Epithel Cells (Auto) 0-5 /lpf (0-5) 06/27/23 02:42 Urine Bacteria (Auto) 1+ (Negative) H 06/27/23 02:42 06/27/23 06/27/23 12:03 06:04 POC Glucose 159 H 138 H
[2023-06-27] MEDS ORDERED: fentaNYL citrate PF 100 MCG/2 ML VIAL ONE (13:03)
--- NOTE | 2023-06-27 13:04 | Pharmacy Report ---
Pharmacy PK ABX Note - Date of Service June 27, 2023 - Assessment and Plan Assessment * 82 year old M receiving vancomycin for treatment of infected pressure ulcer on L buttock. 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 Recent MRSA from L buttock culture 06/11/23. * SCr stable and at/near baseline Plan Vancomycin * Loading dose: 1500 mg IV x 1 administered yesterday * Maintenance dose: 1250 mg IV every 24 hours * Regimen is predicted to achieve target AUC/RUBENS of 400-600 mg/L.hr * Random level ordered for 18 AM Pharmacy will continue to follow and will adjust dose/frequency as necessary. Thank you. Pharmacy has transitioned to AUC monitoring for vancomycin. AUC/RUBENS is the preferred PK/PD target and is associated with decreased risk of nephrotoxicity compared to traditional trough targets.
[2023-06-27] MEDS ORDERED: FAMOTIDINE/PF 20 MG/2 ML VIAL IV ONE (14:08)
[2023-06-27] MEDS: LACTATED RINGER'S 1,000 ML IV SCH (14:13)
[2023-06-27] MEDS ORDERED: fentaNYL citrate PF 100 MCG/2 ML VIAL IV PRN (14:20)
[2023-06-27] MEDS ORDERED: ONDANSETRON INJ 2 MG/ML 2 ML VIAL IV PRN (14:20)
[2023-06-27] MEDS ORDERED: ATROPINE SULFATE 0.1 MG/ML 10ML SYR IV PRN (14:20)
[2023-06-27] MEDS ORDERED: ePHEDrine sulfate 50 MG/ML AMP IV PRN (14:20)
[2023-06-27] MEDS: ceFAZolin 2000MG 2,000 MG/15 ML SYR IV ONE (14:30)
[2023-06-27] MEDS: DIATRIZOATE MEGLUMINE 30% 100ML VIAL INSTIL ONE (14:47)
[2023-06-27] MEDS ORDERED: LIDOCAINE 2% 2 ML VIAL/AMP(20MG/ML) INFIL ONE (14:50)
[2023-06-27] MEDS ORDERED: PROPOFOL IV EMULSION 10 MG/ML 20 ML VIAL IV ONE (14:50)
[2023-06-27] MEDS ORDERED: ONDANSETRON INJ 2 MG/ML 2 ML VIAL ONE (14:50)
--- NOTE | 2023-06-27 14:54 | Operative Report ---
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 Due to ongoing symptoms and concern for possible UTI, he presents to the OR for left ureteral stent placement. Description of Procedure The patient was identified in the holding area and informed consent was confirmed. He was marked on the left side, then was taken to the operating room where anesthesia was initiated. He was placed in the dorsal lithotomy position with all pressure points appropriately padded. He was prepped and draped in the usual sterile fashion and a preoperative timeout was performed. A well-lubricated cystoscope was inserted per urethra and panendoscopy was performed. The pendulous urethra was normal with no strictures or mucosal abnormalities. The prostate was of normal size. His bladder appeared grossly normal with no tumors or stones appreciated. Ureteral orifices were in orthotopic position bilaterally. A 5 British open-ended catheter was inserted and used to intubate the left ureteral orifice. A retrograde pyelogram was performed using Cystografin. The ureter appeared overall normal in course and caliber. There was some hydronephrosis of the left kidney. A 0.038 inch zip wire was advanced up to the kidney under fluoroscopic guidance. Over the wire, a 6 British x 26 cm double-J ureteral stent was advanced. When the wire was removed, there was a good curl in the kidney under fluoroscopic guidance. A curl was visualized in the bladder with the cystoscope. Since he had a catheter preoperatively, a 16 British Foster catheter was placed per urethra. 10 mL was used to inflate the balloon. The catheter was attached to gravity drainage. The patient was then awakened from anesthesia and was brought to the PACU in stable condition. I attest to the content of the Intraoperative Record and any orders documented therein. Any exceptions are noted below.
--- NOTE | 2023-06-27 15:28 | Fluoroscopy Report ---
FL retrograde includes kub CLINICAL HISTORY: STENT PLACEMENT COMPARISON STUDY: CT of the abdomen and pelvis June 26, 2023. FLUOROSCOPY TIME: 7 seconds. Ka, r: 1.77 mGy FLUOROSCOPIC IMAGES: 2 FINDINGS: Fluoroscopy was provided during left retrograde pyelogram with left ureteral stent insertio n. IMPRESSION: Fluoroscopy provided during left retrograde pyelogram with left ureteral stent insertion . ACT 112: Negative or not required by law. Electronically signed by: Aba Wilson M.D. 06/27/2023 3:27 PM
--- NOTE | 2023-06-27 15:59 | Anesthesiology Progress Note ---
Date of Service June 27, 2023 Anesthesia Post Procedure Vital Signs Vital Signs: Temp Pulse Pulse Pulse Resp BP BP 06/27/23 15:33 36.5 C 86 18 138/55 L 06/27/23 15:15 36.3 C L 88 16 142/68 H 06/27/23 15:05 97 H 14 127/61 06/27/23 14:58 36.0 C L 99 H 14 130/69 06/27/23 13:58 36.5 C 90 18 123/74 06/27/23 11:35 36.7 C 81 18 132/70 06/27/23 08:09 36.4 C L 91 H 18 144/62 H 06/27/23 02:50 36.6 C 73 18 111/71 06/26/23 22:53 36.6 C 71 18 112/64 06/26/23 22:00 81 06/26/23 19:33 06/26/23 19:33 06/26/23 19:05 77 06/26/23 19:00 36.7 C 76 18 160/79 H 06/26/23 18:30 70 14 119/65 06/26/23 18:00 73 16 116/64 06/26/23 17:30 69 14 122/66 06/26/23 16:30 84 12 161/103 H 06/26/23 16:20 82 13 06/26/23 16:10 78 12 06/26/23 16:00 80 8 L 06/26/23 16:00 148/77 H Pulse Ox O2 Del Method 06/27/23 15:33 97 Room Air 06/27/23 15:15 94 Room Air 06/27/23 15:05 97 Room Air 06/27/23 14:58 98 Room Air 06/27/23 13:58 96 Room Air 06/27/23 11:35 97 Room Air 06/27/23 08:09 98 Room Air 06/27/23 02:50 97 Room Air 06/26/23 22:53 96 Room Air 06/26/23 22:00 06/26/23 19:33 Room Air 06/26/23 19:33 Room Air 06/26/23 19:05 06/26/23 19:00 98 Room Air 06/26/23 18:30 99 Room Air 06/26/23 18:00 98 Room Air 06/26/23 17:30 97 Room Air 06/26/23 16:30 98 Room Air 06/26/23 16:20 97 Room Air 06/26/23 16:10 06/26/23 16:00 06/26/23 16:00 Transfer of Care Handoff Completed per policy Notes Mental Status: alert / awake / arousable Patient Amnestic to Procedure: Yes Nausea / Vomiting: adequately controlled Pain: adequately controlled Airway Patency, RR, SpO2: stable & adequate BP & HR: stable & adequate Hydration State: stable & adequate Anesthetic Complications: no major complications apparent and Pt Satisfied with anesthetic care
[2023-06-27] MEDS: HALOPERIDOL LACTATE 5 MG/ML 1 ML VIAL ONE (16:18)
[2023-06-27 16:46] LABS: ANTI-Xa, UFH(UnfractionatedHep 0.57 IU/ml (0.3-0.7)
[2023-06-27] MEDS: LORazepam 0.5 MG in SYRINGE 0.25 ML IV PRN (17:12)
[2023-06-27] MEDS: HALOPERIDOL LACTATE 5 MG/ML 1 ML VIAL IV STA (18:49)
[2023-06-27] MEDS: CEFEPIME 2,000 MG in SYRINGE 0 ML IV SCH (18:51)
[2023-06-28 08:33] LABS: BUN Creatinine Ratio 13.1 (10-20); Calcium 8.7 mg/dl (8.6-10.3); Creatinine Clr Calc Pharmacy 52.3 ml/min; Est GFR (Non-African American) 63.9 ml/min; Potassium 3.9 mmol/L (3.5-5.1)
[2023-06-28 08:41] LABS: Basophils # (auto) 0.01 K/uL (0.00-0.20); Basophils % (auto) 0.1 %; Eosinophils # (auto) 0.01 K/uL (0.00-0.50); Eosinophils % (auto) 0.1 %; Hemoglobin 12.8 g/dl (14.0-18.0); Immature Granulocytes # (auto) 0.05 K/uL (0.01-0.20); Immature Granulocytes % (auto) 0.5 %; Lymphocytes # (auto) 1.29 K/uL (1.20-3.40); Mean Corpuscular Hemoglobin 30.1 pg (25.0-34.0); Mean Corpuscular Hgb Conc 34.6 g/dL (32.0-36.0); Mean Corpuscular Volume 87.1 fL (80.0-100.0); Mean Platelet Volume 9.7 fL (9.4-12.4); Monocytes # (auto) 0.81 K/uL (0.11-0.59); Monocytes % (auto) 7.5 %; Neutrophils # (auto) 8.58 K/uL (1.40-6.50); Neutrophils % (auto) 79.8 %; Platelet Count 161 K/uL (130-400); RDW Coefficient of Variation 14.6 % (11.5-14.5); RDW Standard Deviation 46.5 fL (36.4-46.3); Red Blood Count 4.25 M/uL (4.70-6.10); White Blood Count 10.75 K/ul (4.8-10.8)
[2023-06-28 08:44] LABS: ANTI-Xa, UFH(UnfractionatedHep 0.49 IU/ml (0.3-0.7)
--- NOTE | 2023-06-28 08:47 | Hospitalist Progress Note ---
Date of Service June 28, 2023 Assessment & Plan Admission and Anticipated Discharge Date Admission Date: June 26, 2023 Results & Data Results & Data Vital Signs (Past 12 Hours) Vital Signs Temp Pulse Resp BP Pulse Ox O2 Del Method 06/28/23 07:15 97.9 F 90 14 150/76 H 98 Room Air 06/28/23 03:34 97.7 F 81 20 143/71 H 96 Room Air 06/27/23 22:51 97.9 F 90 19 125/85 96 Room Air 06/27/23 22:40 Room Air PG Care Time/CCT Total # of Minutes Spent Total Time Spent with Patient: Total time spent is greater than 50% in coordination of care (as documented) at patient's floor/unit and/or counseling patient: Coding
--- NOTE | 2023-06-28 09:45 | Urology Progress Note ---
Date of Service June 28, 2023 Assessment & Plan (1) Calculus of distal left ureter: Plan: He is somewhat somnolent and was agitated s/p left ureteral stent placement on 06/27/2023. No plan for further urologic intervention while he is admitted at this time. We will plan to coordinate stone treatment as an outpatient. (2) Benign prostate hyperplasia: Plan: Foster catheter remains in position, draining well. Would recommend continuing catheter until he is more alert. Continue tamsulosin and finasteride to help with spontaneous voiding. Admission and Anticipated Discharge Date Admission Date: June 26, 2023 Subjective Patient unable to provide any meaningful history this morning as he is somnolent. Per report, had some agitation overnight and was pulling a Foster catheter. WBC stable (10.75 today) creatinine 1.07 Urine culture still pending, receiving vancomycin Physical Exam Physical Exam: Sleeping comfortably in bed, NAD, Foster catheter draining well Results & Data Vital Signs (Past 12 Hours) Vital Signs Temp Pulse Resp BP Pulse Ox O2 Del Method 06/28/23 07:15 36.6 C 90 14 150/76 H 98 Room Air 06/28/23 03:34 36.5 C 81 20 143/71 H 96 Room Air 06/27/23 22:51 36.6 C 90 19 125/85 96 Room Air 06/27/23 22:40 Room Air PG Care Time/CCT Total # of Minutes Spent Total Time Spent with Patient: Total time spent is greater than 50% in coordination of care (as documented) at patient's floor/unit and/or counseling patient: Coding Level of Care Code 63069 SUB INP/OBS CARE /25MIN Diagnoses Calculus of distal left ureter N20.1 Benign prostatic hyperplasia with urinary frequency N40.1; R35.0 Lower urinary tract symptom presence: symptoms present Lower urinary tract symptom detail: urinary frequency (2) Benign prostate hyperplasia Lower urinary tract symptom presence: symptoms present Lower urinary tract symptom detail: urinary frequency Qualified Code(s): N40.1 - Benign prostatic hyperplasia with lower urinary tract symptoms; R35.0 - Frequency of micturition
[2023-06-28] MEDS: CEFEPIME 2,000 MG in SYRINGE 0 ML IV SCH (10:06)
--- NOTE | 2023-06-28 13:19 | Hospitalist Progress Note ---
Date of Service June 28, 2023 Assessment & Plan (1) Dvt femoral (deep venous thrombosis): Plan: Patient presented for constipation x 5 days; took suppository without relief A DVT in the right common femoral vein was noted on abdomen/pelvic CT Heparin IV with bolus started in the ED continued surrounding his recent cystoscopy for ease of discontinuation of hematuria with persistent likely transition to Eliquis on 06/29/2023 (2) Stage III pressure ulcer of left buttock: Plan: present on admission, concern for cellulitis Wound care consult previous grew MRSA, in march grew pseudomonas Vancomycin, and cefepime. 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 Patient well need symptom control for agitation at times with Haldol Patient will attempt very low-dose Zyprexa twice daily scheduled (7) On prednisone therapy: Plan: For PMR/giant cell arteritis Started at a 20 mg dose patient is currently on taper (reduction of 2.5 mg every 2 weeks) Currently at 12.5 mg daily; continue on this for now Be cautious for adrenal crisis from steroid deficiency Plan suspected Urinary tract infection present on admission cultures are pendingempirically on vancomycin for wound previous Pseudomonas in urine in March will add cefepime DNR/DNI VTE PPx: Heparin IV with bolus Admission and Anticipated Discharge Date Admission Date: June 26, 2023 Subjective Patient is oriented x 1. Continues to be challenging. Family at the bedside and stated his dementia was progressing prior to admission Patient needed mitts placed due to pulling at lines and tubes Patient was offers no physical complaints Physical Exam Physical Exam: Patient is oriented x 1 he offers no focal complaints and has no objective signs of discomfort Card exam is regular Lungs are clear but diminished at the bases Abdomen is NABS soft nontender no CVA angle tenderness Extremities are without edema Results & Data Results & Data Vital Signs (Past 12 Hours) Vital Signs Temp Pulse Resp BP Pulse Ox O2 Del Method 06/28/23 11:10 98.1 F 86 16 135/67 97 Room Air 06/28/23 07:15 97.9 F 90 14 150/76 H 98 Room Air 06/28/23 03:34 97.7 F 81 20 143/71 H 96 Room Air Laboratory Results Reviewed CBC Reviewed chemistry Reviewed urine culture PG Care Time/CCT Total # of Minutes Spent Total Time Spent with Patient: Total time spent is greater than 50% in coordination of care (as documented) at patient's floor/unit and/or counseling patient: Coding Level of Care Code 56834 SUB INP/OBS CARE 2/35MIN Diagnoses Dvt femoral (deep venous thrombosis) I82.419 Stage III pressure ulcer of left buttock L89.323 Nephrolithiasis N20.0 Constipation K59.00 Diabetes mellitus type 2 with neurological manifestations E11.49 Parkinsons disease G20 On prednisone therapy Z79.52
[2023-06-28] MEDS: OLANZapine ZYDIS 5 MG ORALLY DIS. TAB PO SCH (21:24)
[2023-06-28] MEDS: LORazepam 0.5 MG in SYRINGE 0.25 ML IV STA (23:09)
[2023-06-29] MEDS: LORazepam 0.5 MG in SYRINGE 0.25 ML IV STA (00:41)
[2023-06-29 05:23] LABS: Basophils # (auto) 0.04 K/uL (0.00-0.20); Basophils % (auto) 0.4 %; Eosinophils # (auto) 0.03 K/uL (0.00-0.50); Eosinophils % (auto) 0.3 %; Hematocrit (blood only) 38.5 % (42.0-52.0); Hemoglobin 12.9 g/dl (14.0-18.0); Immature Granulocytes # (auto) 0.09 K/uL (0.01-0.20); Immature Granulocytes % (auto) 0.8 %; Lymphocytes # (auto) 0.89 K/uL (1.20-3.40); Lymphocytes % (auto) 8.2 %; Mean Corpuscular Hemoglobin 29.9 pg (25.0-34.0); Mean Corpuscular Hgb Conc 33.5 g/dL (32.0-36.0); Mean Corpuscular Volume 89.1 fL (80.0-100.0); Mean Platelet Volume 9.9 fL (9.4-12.4); Monocytes # (auto) 0.91 K/uL (0.11-0.59); Monocytes % (auto) 8.4 %; Neutrophils # (auto) 8.89 K/uL (1.40-6.50); Neutrophils % (auto) 81.9 %; Platelet Count 180 K/uL (130-400); RDW Coefficient of Variation 14.6 % (11.5-14.5); RDW Standard Deviation 46.6 fL (36.4-46.3); Red Blood Count 4.32 M/uL (4.70-6.10); White Blood Count 10.85 K/ul (4.8-10.8)
[2023-06-29 05:43] LABS: BUN Creatinine Ratio 16.5 (10-20); Creatinine Clr Calc Pharmacy 46.3 ml/min; Est GFR (African American) 63.8 ml/min; Potassium 4.1 mmol/L (3.5-5.1)
[2023-06-29 05:52] LABS: ANTI-Xa, UFH(UnfractionatedHep 0.41 IU/ml (0.3-0.7)
--- NOTE | 2023-06-29 08:56 | Urology Progress Note ---
Date of Service June 29, 2023 Assessment & Plan (1) Calculus of distal left ureter: Plan: No plan for further urologic intervention during this admission. We will coordinate stone management as an outpatient. (2) Benign prostate hyperplasia: Plan: Continue tamsulosin and finasteride to help with spontaneous voiding. Consider voiding trial once he is more alert. Plan Urology will sign off for now and coordinate outpatient follow-up. Please call with any questions or concerns Admission and Anticipated Discharge Date Admission Date: June 26, 2023 Subjective Patient unable to provide any history Has been agitated with minimal sleep overnight, mitts in place while he is pulling on tubes and drains. Urine culture from 06/27 with no growth Physical Exam Physical Exam: Resting in bed, NAD Foster catheter draining well, slightly concentrated appearing urine Results & Data Vital Signs (Past 12 Hours) Vital Signs Temp Pulse Pulse Resp BP Pulse Ox O2 Del Method 06/29/23 06:56 36.7 C 87 19 152/93 H 99 Room Air 06/29/23 04:39 36.8 C 74 20 138/101 H 97 Room Air 06/29/23 00:21 36.8 C 79 20 149/80 H 96 Room Air 06/28/23 22:23 92 H 06/28/23 21:50 Room Air PG Care Time/CCT Total # of Minutes Spent Total Time Spent with Patient: Total time spent is greater than 50% in coordination of care (as documented) at patient's floor/unit and/or counseling patient: Coding Level of Care Code 03765 SUB INP/OBS CARE /25MIN Diagnoses Calculus of distal left ureter N20.1 Benign prostatic hyperplasia with urinary frequency N40.1; R35.0 Lower urinary tract symptom presence: symptoms present Lower urinary tract symptom detail: urinary frequency (2) Benign prostate hyperplasia Lower urinary tract symptom presence: symptoms present Lower urinary tract symptom detail: urinary frequency Qualified Code(s): N40.1 - Benign prostatic hyperplasia with lower urinary tract symptoms; R35.0 - Frequency of micturition
[2023-06-29] MEDS: VANCOMYCIN LEVEL ONE (10:15)
[2023-06-29] MEDS: HEPARIN: STOP ORDER ONE (10:16)
[2023-06-29] MEDS: APIXABAN 5 MG TABLET PO SCH (10:28)
[2023-06-29] MEDS: OLANZapine ZYDIS 5 MG ORALLY DIS. TAB PO SCH (10:33)
--- NOTE | 2023-06-29 10:51 | Pharmacy Report ---
Pharmacy PK ABX Note - Date of Service June 29, 2023 - Assessment and Plan Assessment 06/29: * Urine culture negative. Random level this AM 11.0, predicting AUC/RUBENS within goal range at steady state. Will continue current dosing for now, repeat level 07/01 06/27 * 82 year old M receiving vancomycin for treatment of infected pressure ulcer on L buttock. 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 Recent MRSA from L buttock culture 06/11/23. * SCr stable and at/near baseline Plan Vancomycin * Loading dose: 1500 mg IV x 1 administered yesterday * Maintenance dose: 1250 mg IV every 24 hours * Regimen is predicted to achieve target AUC/RUBENS of 400-600 mg/L.hr * Random level ordered for 07/01 AM Pharmacy will continue to follow and will adjust dose/frequency as necessary. Thank you. Pharmacy has transitioned to AUC monitoring for vancomycin. AUC/RUBENS is the preferred PK/PD target and is associated with decreased risk of nephrotoxicity compared to traditional trough targets.
--- NOTE | 2023-06-29 15:48 | Hospitalist Progress Note ---
Date of Service June 29, 2023 Assessment & Plan (1) Encephalopathy: Plan: This is most troubling issue at the present time. Family notes progression of dementia with his Parkinson's disease prior to hospitalization Initial concern was for metabolic encephalopathy from urinary tract infection present on admission. However urine culture has not grown Toxic encephalopathy also concern from cefepime dose has been discontinued. Certainly baseline may be progressive dementia from his Parkinson's disease however behavioral control is required due to him pulling at lines and endangering himself. Subsequently Zyprexa was started and escalated to 5 twice daily. Will attempt melatonin in the evening of 06/29 to try to improve sleep and improve daytime agitation. (2) Dvt femoral (deep venous thrombosis): Plan: Patient presented for constipation x 5 days; took suppository without relief A DVT in the right common femoral vein was noted on abdomen/pelvic CT Heparin IV with bolus started in the ED continued surrounding his recent cystoscopy for ease of discontinuation of hematuria with persistent likely transition to Eliquis on 06/29/2023 (3) Stage III pressure ulcer of left buttock: Plan: present on admission, concern for cellulitis Wound care consult previous grew MRSA, in march grew pseudomonas Vancomycin, and cefepime. Will try to de-escalate may only need MRSA coverage, cefepime can cause confusion at times (4) Nephrolithiasis: Plan: 7 mm obstructing calculus in the distal left ureter Urology consulted, cystoscopy with stenting with outpatient definitive care for stone once discharged Acetaminophen as needed for pain presented with urinary retention has lujan at this time (5) Constipation: Plan: Abdomen/pelvic CT revealed rectosigmoid fecal retention and moderate constipation MiraLAX, senna with good results of stool Fleet enema as needed (6) Diabetes mellitus type 2 with neurological manifestations: Plan: Last A1c at 7.8% on 02/24/2023 Glucose 139 on admission Hold Sitagliptin poor po intake lantus stopped 06/29 ssi tightened (7) Parkinsons disease: Plan: Continue Sinemet As 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 Patient well need symptom control for agitation at times with Haldol Patient will attempt Zyprexa twice daily scheduled try melatonin addition to help sleep 06/29 (8) On prednisone therapy: Plan: For PMR/giant cell arteritis Started at a 20 mg dose patient is currently on taper (reduction of 2.5 mg every 2 weeks) Currently at 12.5 mg daily; continue on this for now, supposed to taper to 10 mg on saturday 07/01 Be cautious for adrenal crisis from steroid deficiency Plan suspected Urinary tract infection present on admission cultures are pendingempirically on vancomycin for wound previous Pseudomonas in urine in March DNR/DNI VTE PPx: Heparin IV with bolus Admission and Anticipated Discharge Date Admission Date: June 26, 2023 Subjective pt is continued to be agitated, not great help with zyprexa, has mits in place and family at the bedside re orientating him Physical Exam Physical Exam: pt is awake and alert, but not oriented thinks he is in center crest no distress other than agitation pulling at Lujan and iv lines cardiac is regular abdomen is soft and non tender Results & Data Results & Data Vital Signs (Past 12 Hours) Vital Signs Temp Pulse Resp BP Pulse Ox O2 Del Method 06/29/23 15:33 97.7 F 87 19 132/63 95 Room Air 06/29/23 10:31 98.4 F 84 19 132/71 100 Room Air 06/29/23 08:00 Room Air 06/29/23 06:56 98.1 F 87 19 152/93 H 99 Room Air 06/29/23 04:39 98.3 F 74 20 138/101 H 97 Room Air Laboratory Results Reviewed chemistry Reviewed CBC Discussed case with speech therapy PG Care Time/CCT Total # of Minutes Spent Total Time Spent with Patient: Total time spent is greater than 50% in coordination of care (as documented) at patient's floor/unit and/or counseling patient: Coding Level of Care Code 63739 SUB INP/OBS CARE 3/50MIN Diagnoses Encephalopathy G93.40 Dvt femoral (deep venous thrombosis) I82.419 Stage III pressure ulcer of left buttock L89.323 Nephrolithiasis N20.0 Constipation K59.00 Diabetes mellitus type 2 with neurological manifestations E11.49 Parkinsons disease G20 On prednisone therapy Z79.52
[2023-06-29] MEDS: MELATONIN 3 MG TAB PO SCH (20:50)
[2023-06-30] MEDS: LORazepam 0.5 MG in SYRINGE 0.25 ML IV PRN (00:12)
[2023-06-30 07:43] LABS: ANTI-Xa, UFH(UnfractionatedHep > 1.50 IU/ml (0.3-0.7)
--- NOTE | 2023-06-30 19:06 | Hospitalist Progress Note ---
Date of Service June 30, 2023 Assessment & Plan (1) Encephalopathy: Plan: Seems to have some improvement Family notes progression of dementia with his Parkinson's disease prior to hospitalization Initial concern was for metabolic encephalopathy from urinary tract infection present on admission. However urine culture has not grown Toxic encephalopathy also concern from cefepime dose has been discontinued. Certainly baseline may be progressive dementia from his Parkinson's disease however behavioral control is required due to him pulling at lines and endangering himself. zyprexa dose decreased (2) Dvt femoral (deep venous thrombosis): Plan: Patient presented for constipation x 5 days; took suppository without relief A DVT in the right common femoral vein was noted on abdomen/pelvic CT Heparin IV with bolus started in the ED continued surrounding his recent cystoscopy for ease of discontinuation of hematuria with persistent likely transition to Eliquis on 06/29/2023 does have some garcia colored urine will follow (3) Stage III pressure ulcer of left buttock: Plan: present on admission, concern for cellulitis Wound care consult previous grew MRSA, in march grew pseudomonas Vancomycin, MRSA coverage, cefepime can cause confusion at times complete one week (4) Nephrolithiasis: Plan: 7 mm obstructing calculus in the distal left ureter Urology consulted, cystoscopy with stenting with outpatient definitive care for stone once discharged Acetaminophen as needed for pain presented with urinary retention has lujan at this time (5) Constipation: Plan: Abdomen/pelvic CT revealed rectosigmoid fecal retention and moderate constipation MiraLAX, senna with good results of stool Fleet enema as needed (6) Diabetes mellitus type 2 with neurological manifestations: Plan: Last A1c at 7.8% on 02/24/2023 Hold Sitagliptin poor po intake lantus stopped 06/29 ssi tightened (7) Parkinsons disease: Plan: Continue Sinemet As 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 Patient well need symptom control for agitation at times with Haldol (8) On prednisone therapy: Plan: For PMR/giant cell arteritis Started at a 20 mg dose patient is currently on taper (reduction of 2.5 mg every 2 weeks) Currently at 12.5 mg daily; continue on this for now, supposed to taper to 10 mg on saturday 07/01 Be cautious for adrenal crisis from steroid deficiency Plan suspected Urinary tract infection present on admission cultures are pendingempirically on vancomycin for wound previous Pseudomonas in urine in March DNR/DNI VTE PPx: Heparin IV with bolus Admission and Anticipated Discharge Date Admission Date: June 26, 2023 Subjective pt was much more awake and aware this am, in afternoon got sleepy but did not have additional medicaiton this am likley from PT and physical effort this am Physical Exam Physical Exam: pt is awake and alert, he was oreinted am of 06/30/23 no distress much less agitation pulling at Lujan and iv lines, some garcia urine in lujan cardiac is regular abdomen is soft and non tender Results & Data Results & Data Vital Signs (Past 12 Hours) Vital Signs Temp Pulse Resp BP Pulse Ox O2 Del Method 06/30/23 15:10 98.1 F 95 H 19 111/69 94 Room Air 06/30/23 11:08 98.2 F 86 18 130/62 96 Room Air 06/30/23 08:00 Room Air PG Care Time/CCT Total # of Minutes Spent Total Time Spent with Patient: Total time spent is greater than 50% in coordination of care (as documented) at patient's floor/unit and/or counseling patient: Coding Level of Care Code 42094 SUB INP/OBS CARE 3/50MIN Diagnoses Encephalopathy G93.40 Dvt femoral (deep venous thrombosis) I82.419 Stage III pressure ulcer of left buttock L89.323 Nephrolithiasis N20.0 Constipation K59.00 Diabetes mellitus type 2 with neurological manifestations E11.49 Parkinsons disease G20 On prednisone therapy Z79.52
[2023-06-30] MEDS: OLANZapine ZYDIS 5 MG ORALLY DIS. TAB PO SCH (20:55)
[2023-07-01 06:32] LABS: Creatinine Clr Calc Pharmacy 47.4 ml/min; Est GFR (African American) 65.7 ml/min; Est GFR (Non-African American) 56.7 ml/min
[2023-07-01] MEDS: predniSONE 10 MG TABLET PO SCH (08:26)
[2023-07-01] MEDS ORDERED: OLANZapine ZYDIS 5 MG ORALLY DIS. TAB PO SCH (09:00)
--- NOTE | 2023-07-01 10:33 | Pharmacy Report ---
Pharmacy PK ABX Note - Date of Service July 01, 2023 - Assessment and Plan Assessment 07/01: * Random level this AM was therapeutic at 11.3 mcg/mL. Renal fxn stable with SCr of 1.18 mg/dL. * Reached out to provider today regarding duration of vancomycin. 06/29: * Urine culture negative. Random level this AM 11.0, predicting AUC/RUBENS within goal range at steady state. Will continue current dosing for now, repeat level 07/01 06/27 * 82 year old M receiving vancomycin for treatment of infected pressure ulcer on L buttock. 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 Recent MRSA from L buttock culture 06/11/23. * SCr stable and at/near baseline Plan Vancomycin * Current regimen: 1250 mg IV every 24 hours * Random level obtained 07/01/23 resulted as 11.3 mcg/mL. This is predicted to achieve target AUC/RUBENS of 400-600 mg/L.hr * Predicted AUC at steady state: 511 mg/L.hr * Continue 1250 mg IV every 24 hours * Will repeat level in the next 48-72 hours if therapy is continued and/or change in patient clinical status Pharmacy will continue to follow and will adjust dose/frequency as necessary. Thank you. Pharmacy has transitioned to AUC monitoring for vancomycin. AUC/RUBENS is the preferred PK/PD target and is associated with decreased risk of nephrotoxicity compared to traditional trough targets.
--- NOTE | 2023-07-01 15:14 | Urology Progress Note ---
Date of Service July 01, 2023 Assessment & Plan (1) Calculus of distal left ureter: (2) S/P ureteral stent placement: (3) Gross hematuria: Plan Pt s/p Cystoscopy and left ureteral stent placement on 06/27/[address] Bond. Urology asked to reevaluate patient today due to hematuria. He is afebrile, hemodynamically stable. Labs- Creatinine 1.18 today. Hemoglobin on 06/29/2023 was 12.9. Urine culture 06/27 negative. He is on Vanco for pressure ulcer of buttocks. Hematuria likely secondary to stent irritation, anticoagulation. Foster catheter currently intact and draining dark red urine. Continue to monitor. Ok to hand irrigate as needed for clots, retention, suprapubic pain. Anticoagulation placed on hold per primary team. Can continue anticoagulation as felt necessary per primary team. Urology can manage hematuria as needed. Continue supportive care and monitoring. Urology will follow. Admission and Anticipated Discharge Date Admission Date: June 26, 2023 Subjective Patient examined at bedside today. Resting in bed on arrival. Family at bedside. Foster draining with hematuria. Review of Systems Constitutional: as per Subjective / HPI Genitourinary: + as per Subjective / HPI Physical Exam Constitutional: no acute distress Respiratory: no respiratory distress and no labored breathing Neurologic: awake Psychiatric: Orientation: alert and cooperative Genitourinary: Foster draining w/hematuria Results & Data Vital Signs (Past 12 Hours) Vital Signs Temp Pulse Pulse Resp BP Pulse Ox O2 Del Method 07/01/23 11:36 36.6 C 78 18 113/65 98 Room Air 07/01/23 10:20 Room Air 07/01/23 08:35 113/78 07/01/23 08:04 70 07/01/23 07:38 36.3 C L 72 18 171/80 H 97 Room Air PG Care Time/CCT Total # of Minutes Spent Total Time Spent with Patient: Total time spent is greater than 50% in coordination of care (as documented) at patient's floor/unit and/or counseling patient: Coding Level of Care Code 82127 SUB INP/OBS CARE 25MIN Diagnoses Calculus of distal left ureter N20.1 S/P ureteral stent placement Z96.0 Gross hematuria R31.0
--- NOTE | 2023-07-01 18:23 | Hospitalist Progress Note ---
Date of Service July 01, 2023 Assessment & Plan (1) Encephalopathy: Plan: Seems to have improved/resolved Family notes progression of dementia with his Parkinson's disease prior to hospitalization Initial concern was for metabolic encephalopathy from urinary tract infection present on admission. However urine culture has not grown Toxic encephalopathy also concern from cefepime dose has been discontinued. Overall improvement may be from stopping cefepime and getting the patient some sleep. Certainly baseline may be progressive dementia from his Parkinson's disease however behavioral control is required due to him pulling at lines and endangering himself. zyprexa will be discontinued melatonin continued for sleep see how he does in the morning (2) Dvt femoral (deep venous thrombosis): Plan: Patient presented for constipation x 5 days; took suppository without relief A DVT in the right common femoral vein was noted on abdomen/pelvic CT Heparin IV with bolus started in the ED continued surrounding his recent cystoscopy for ease of discontinuation of hematuria with persistent likely transition to Eliquis on 06/29/2023 does have some garcia colored urine will follow initially held Eliquis however urology does not feel is required to have this anticoagulation held we will restart it in the evening of 07/01/2023 feel that urine is likely from irritation from stent plus minus Lujan catheter (3) Stage III pressure ulcer of left buttock: Plan: present on admission, concern for cellulitis Wound care consult previous grew MRSA, in march grew pseudomonas Vancomycin, MRSA coverage, will have on 1 week and continue to review site (4) Nephrolithiasis: Plan: 7 mm obstructing calculus in the distal left ureter Urology consulted, cystoscopy with stenting with outpatient definitive care for stone once discharged Acetaminophen as needed for pain presented with urinary retention has lujan at this time wine/garcia colored urine persist urology is following (5) Constipation: Plan: Abdomen/pelvic CT revealed rectosigmoid fecal retention and moderate constipation MiraLAX, senna with good results of stool Fleet enema as needed (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 Patient well need symptom control for agitation at times with Haldol (8) On prednisone therapy: Plan: For PMR/giant cell arteritis Started at a 20 mg dose patient is currently on taper (reduction of 2.5 mg every 2 weeks) Currently at 12.5 mg daily; continue on this for now, supposed to taper to 10 mg on saturday 07/01 Be cautious for adrenal crisis from steroid deficiency Plan suspected Urinary tract infection present on admission cultures are pendingempirically on vancomycin for wound previous Pseudomonas in urine in March DNR/DNI VTE PPx: Heparin IV with bolus Admission and Anticipated Discharge Date Admission Date: June 26, 2023 Subjective pleasant but sleepy has wine colored urine asked urology to return to see no focal complaint of leg pain family at the bedside and updated Physical Exam Physical Exam: Pleasant oriented x 2 No focal complaint Card exam is regular Lungs are clear with good air movement Abdomen NABS and soft no suprapubic tenderness As mentioned Lujan is wine colored urine Extremities are with trace edema bilaterally Results & Data Results & Data Vital Signs (Past 12 Hours) Vital Signs Temp Pulse Pulse Resp BP Pulse Ox O2 Del Method 07/01/23 16:15 Room Air 07/01/23 15:34 98.1 F 75 18 131/68 96 Room Air 07/01/23 11:36 97.9 F 78 18 113/65 98 Room Air 07/01/23 10:20 Room Air 07/01/23 08:35 113/78 07/01/23 08:04 70 07/01/23 07:38 97.3 F L 72 18 171/80 H 97 Room Air Laboratory Results Reviewed creatinine and creatinine clearance, reviewed [id number] glucose (slightly elevated) reviewed vancomycin level in therapeutic range PG Care Time/CCT Total # of Minutes Spent Total Time Spent with Patient: Total time spent is greater than 50% in coordination of care (as documented) at patient's floor/unit and/or counseling patient: Coding Level of Care Code 44595 SUB INP/OBS CARE 3/50MIN Diagnoses Encephalopathy G93.40 Dvt femoral (deep venous thrombosis) I82.419 Stage III pressure ulcer of left buttock L89.323 Nephrolithiasis N20.0 Constipation K59.00 Diabetes mellitus type 2 with neurological manifestations E11.49 Parkinsons disease G20 On prednisone therapy Z79.52
[2023-07-01] MEDS: SENNA 8.6 MG TAB PO SCH (20:42)
[2023-07-01] MEDS: APIXABAN 5 MG TABLET PO SCH (20:43)
[2023-07-01] MEDS ORDERED: MELATONIN 3 MG TAB PO ONE (21:00)
--- NOTE | 2023-07-02 08:40 | Urology Progress Note ---
Date of Service July 02, 2023 Assessment & Plan (1) Calculus of distal left ureter: (2) S/P ureteral stent placement: (3) Gross hematuria: Plan Pt s/p Cystoscopy and left ureteral stent placement on 06/27/[address] Bond. Urology asked to reevaluate patient due to hematuria. He is afebrile, hemodynamically stable. Urine culture 06/27 negative. He is on Vanco for pressure ulcer of buttocks. Hematuria has improved some from yesterday and likely due to stent irritation, anticoagulation. Foster catheter currently intact and draining pink urine. Continue to monitor. Ok to hand irrigate as needed for clots, retention, suprapubic pain. Anticoagulation per primary team. Urology can manage hematuria as needed. Continue supportive care and monitoring. Continue tamsulosin and finasteride to help with spontaneous voiding. Depending on clinical course, can consider voiding trial prior to d/c or we can arrange as outpatient. Urology will follow. Admission and Anticipated Discharge Date Admission Date: June 26, 2023 Subjective Patient examined at bedside today. Awake, resting in bed on arrival. No acute distress. Foster draining pink urine with a few small clots noted in tubing. Denies any pain or discomfort at present. Review of Systems Constitutional: as per Subjective / HPI Genitourinary: + as per Subjective / HPI Physical Exam Constitutional: no acute distress Respiratory: no respiratory distress and no labored breathing Neurologic: awake Psychiatric: Orientation: alert and cooperative Genitourinary: Foster draining pink urine Results & Data Vital Signs (Past 12 Hours) Vital Signs Temp Pulse Pulse Resp BP Pulse Ox O2 Del Method 07/02/23 07:36 36.8 C 80 18 139/74 97 Room Air 07/02/23 02:55 36.8 C 70 17 135/78 97 Room Air 07/01/23 23:05 36.8 C 68 16 124/64 98 Room Air 07/01/23 22:40 71 PG Care Time/CCT Total # of Minutes Spent Total Time Spent with Patient: Total time spent is greater than 50% in coordination of care (as documented) at patient's floor/unit and/or counseling patient: Coding Level of Care Code 93400 SUB INP/OBS CARE 2/35MIN Diagnoses Calculus of distal left ureter N20.1 S/P ureteral stent placement Z96.0 Gross hematuria R31.0
--- NOTE | 2023-07-02 20:24 | Hospitalist Progress Note ---
Date of Service July 02, 2023 Assessment & Plan (1) Encephalopathy: Plan: Seems to have improved/resolved Family notes progression of dementia with his Parkinson's disease prior to hospitalization Initial concern was for metabolic encephalopathy from urinary tract infection present on admission. However urine culture has not grown Toxic encephalopathy also concern from cefepime dose has been discontinued. Overall improvement may be from stopping cefepime and getting the patient some sleep. Certainly baseline may be progressive dementia from his Parkinson's disease however behavioral control is required due to him pulling at lines and endangering himself. zyprexa will be discontinued melatonin continued for sleep see how he does in the morning (2) Dvt femoral (deep venous thrombosis): Plan: Patient presented for constipation x 5 days; took suppository without relief A DVT in the right common femoral vein was noted on abdomen/pelvic CT Heparin IV with bolus started in the ED continued surrounding his recent cystoscopy for ease of discontinuation of hematuria with persistent likely transition to Eliquis on 06/29/2023 does have some garcia colored urine will follow initially held Eliquis however urology does not feel is required to have this anticoagulation held we will restart it in the evening of 07/01/2023 feel that urine is likely from irritation from stent plus minus Lujan catheter (3) Stage III pressure ulcer of left buttock: Plan: present on admission, concern for cellulitis Wound care consult previous grew MRSA, in march grew pseudomonas Vancomycin, MRSA coverage, will have on 1 week and continue to review site (4) Nephrolithiasis: Plan: 7 mm obstructing calculus in the distal left ureter Urology consulted, cystoscopy with stenting with outpatient definitive care for stone once discharged Acetaminophen as needed for pain presented with urinary retention has lujan at this time wine/garcia colored urine persist urology is following (5) Constipation: Plan: Abdomen/pelvic CT revealed rectosigmoid fecal retention and moderate constipation MiraLAX, senna with good results of stool Fleet enema as needed (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 Patient well need symptom control for agitation at times with Devikal (8) On prednisone therapy: Plan: For PMR/giant cell arteritis Started at a 20 mg dose patient is currently on taper (reduction of 2.5 mg every 2 weeks) Currently at 12.5 mg daily; continue on this for now, supposed to taper to 10 mg on saturday 07/01 Be cautious for adrenal crisis from steroid deficiency Plan suspected Urinary tract infection present on admission cultures are pendingempirically on vancomycin for wound previous Pseudomonas in urine in March DNR/DNI Patient is on apixaban 5 twice daily. Anticipate transition to rehabilitation in the next day or 2 Admission and Anticipated Discharge Date Admission Date: June 26, 2023 Subjective Patient's confusion has lessened underlying Parkinson's dementia continues to persist Hematuria also has lightened Patient has no focal complaints expresses frustration and concern with patient's dementia Physical Exam Physical Exam: Patient awake oriented that he is in the hospital feeding himself. No focal complaints. No significant suprapubic tenderness urine as mentioned is garcia colored Results & Data Results & Data Vital Signs (Past 12 Hours) Vital Signs Temp Pulse Pulse Resp BP Pulse Ox O2 Del Method 07/02/23 19:13 97.9 F 72 18 131/72 90 Room Air 07/02/23 15:39 71 18 125/73 97 Room Air 07/02/23 15:22 75 07/02/23 11:36 98.1 F 74 20 114/67 98 Room Air 07/02/23 10:04 Room Air PG Care Time/CCT Total # of Minutes Spent Total Time Spent with Patient: Total time spent is greater than 50% in coordination of care (as documented) at patient's floor/unit and/or counseling patient: Coding Level of Care Code 86177 SUB INP/OBS CARE 235MIN Diagnoses Encephalopathy G93.40 Dvt femoral (deep venous thrombosis) I82.419 Stage III pressure ulcer of left buttock L89.323 Nephrolithiasis N20.0 Constipation K59.00 Diabetes mellitus type 2 with neurological manifestations E11.49 Parkinsons disease G20 On prednisone therapy Z79.52
[2023-07-03] MEDS: LORazepam 0.5 MG in SYRINGE 0.25 ML IV STA ×2 (03:30→22:51)
[2023-07-03] MEDS: MoRPHine SULFATE 2 MG/ML CARP IV STA (04:32)
[2023-07-03 06:29] LABS: Hematocrit (blood only) 37.6 % (42.0-52.0); Hemoglobin 12.5 g/dl (14.0-18.0); Mean Corpuscular Hemoglobin 30.2 pg (25.0-34.0); Mean Corpuscular Hgb Conc 33.2 g/dL (32.0-36.0); Mean Corpuscular Volume 90.8 fL (80.0-100.0); Mean Platelet Volume 9.5 fL (9.4-12.4); Platelet Count 203 K/uL (130-400); RDW Coefficient of Variation 14.5 % (11.5-14.5); RDW Standard Deviation 47.8 fL (36.4-46.3); Red Blood Count 4.14 M/uL (4.70-6.10); White Blood Count 7.88 K/ul (4.8-10.8)
[2023-07-03 06:49] LABS: BUN Creatinine Ratio 30.1 (10-20); Creatinine Clr Calc Pharmacy 49.5 ml/min; Est GFR (African American) 69.3 ml/min; Est GFR (Non-African American) 59.8 ml/min; Potassium 3.7 mmol/L (3.5-5.1)
[2023-07-03] MEDS ORDERED: VANCOMYCIN CONSULT ACTIVE PRN (08:14)
[2023-07-03] MEDS: VANCOMYCIN HCL 1,250 MG in SODIUM CHLORIDE 0.9% 250 ML IV ONE (09:17)
--- NOTE | 2023-07-03 11:28 | Urology Progress Note ---
<Statement entered by Raul Bond MD - 07/03/23 12:32> I have discussed Mr. Dasilva's case with DANY Gee and agree with the above documentation. -Raul Bond MD. Date of Service July 03, 2023 Assessment & Plan (1) Calculus of distal left ureter: (2) S/P ureteral stent placement: (3) Gross hematuria: Plan Pt s/p Cystoscopy and left ureteral stent placement on 06/27/[address] Bond. Urology asked to reevaluate patient due to hematuria. He is afebrile, hemodynamically stable. Labs reviewed - WBC 7.88, Hemoglobin stable 12.5, creatinine 1.13. Urine culture 06/27 negative. Hematuria is clearing and was likely due to stent irritation, anticoagulation. Foster catheter currently intact and draining pink tinged urine. Continue to monitor. Ok to hand irrigate as needed for clots, retention, suprapubic pain. Anticoagulation per primary team. Urology can manage hematuria as needed. Continue supportive care and monitoring. Continue tamsulosin and finasteride to help with spontaneous voiding. Depending on clinical course, can consider voiding trial prior to d/c or we can arrange as outpatient. Will arrange outpatient follow-up to discuss definitive stone treatment. Urology will follow peripherally. Please call with any further questions or concerns. Admission and Anticipated Discharge Date Admission Date: June 26, 2023 Subjective Patient examined at bedside today. Awake, resting in bed on arrival. Oriented to person only. No acute distress. Foster draining pink tinged urine. Denied any pain or discomfort at present. Review of Systems Constitutional: as per Subjective / HPI Genitourinary: + as per Subjective / HPI Physical Exam Constitutional: no acute distress Respiratory: no respiratory distress and no labored breathing Gastrointestinal (Abdomen): Percussion/Palpation: abdomen soft; abdomen nonten john Neurologic: awake Psychiatric: Orientation: alert and oriented to person Genitourinary: Foster draining pink tinged urine Results & Data Vital Signs (Past 12 Hours) Vital Signs Temp Pulse Pulse Resp BP Pulse Ox O2 Del Method 07/03/23 09:56 Room Air 07/03/23 07:57 36.6 C 71 14 147/77 H 98 Room Air 07/03/23 07:36 85 07/03/23 02:44 36.8 C 75 18 148/77 H 95 Room Air 07/03/23 00:00 75 PG Care Time/CCT Total # of Minutes Spent Total Time Spent with Patient: Total time spent is greater than 50% in coordination of care (as documented) at patient's floor/unit and/or counseling patient: Coding Level of Care Code 48286 SUB INP/OBS CARE 2/35MIN Diagnoses Calculus of distal left ureter N20.1 S/P ureteral stent placement Z96.0 Gross hematuria R31.0
--- NOTE | 2023-07-03 22:19 | Hospitalist Progress Note ---
Date of Service July 03, 2023 Assessment & Plan (1) Encephalopathy: Plan: Seems to have improved/resolved Family notes progression of dementia with his Parkinson's disease prior to hospitalization Initial concern was for metabolic encephalopathy from urinary tract infection present on admission. However urine culture has not grown Toxic encephalopathy also concern from cefepime dose has been discontinued. Overall improvement may be from stopping cefepime and getting the patient some sleep. Certainly baseline may be progressive dementia from his Parkinson's disease however behavioral control is required due to him pulling at lines and endangering himself. zyprexa will be discontinued melatonin continued for sleep see how he does in the morning Patient appears to be confused on 07/04 (2) Dvt femoral (deep venous thrombosis): Plan: Patient presented for constipation x 5 days; took suppository without relief A DVT in the right common femoral vein was noted on abdomen/pelvic CT Heparin IV with bolus started in the ED continued surrounding his recent cystoscopy for ease of discontinuation of hematuria with persistent likely transition to Eliquis on 06/29/2023 does have some garcia colored urine will follow initially held Eliquis however urology does not feel is required to have this anticoagulation held we will restart it in the evening of 07/01/2023 feel that urine is likely from irritation from stent plus minus Lujan catheter (3) Stage III pressure ulcer of left buttock: Plan: present on admission, concern for cellulitis Wound care consult previous grew MRSA, in march grew pseudomonas Vancomycin, MRSA coverage, will have on 1 week and continue to review site (4) Nephrolithiasis: Plan: 7 mm obstructing calculus in the distal left ureter Urology consulted, cystoscopy with stenting with outpatient definitive care for stone once discharged Acetaminophen as needed for pain presented with urinary retention has lujan at this time wine/garcia colored urine persist urology is following (5) Constipation: Plan: Abdomen/pelvic CT revealed rectosigmoid fecal retention and moderate constipation MiraLAX, senna with good results of stool Fleet enema as needed (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 Patient well need symptom control for agitation at times with Devikal (8) On prednisone therapy: Plan: For PMR/giant cell arteritis Started at a 20 mg dose patient is currently on taper (reduction of 2.5 mg every 2 weeks) Currently at 12.5 mg daily; continue on this for now, supposed to taper to 10 mg on saturday 07/01 Be cautious for adrenal crisis from steroid deficiency Plan suspected Urinary tract infection present on admission cultures are pendingempirically on vancomycin for wound previous Pseudomonas in urine in March DNR/DNI Patient is on apixaban 5 twice daily. Anticipate transition to rehabilitation in the next day or 2 Admission and Anticipated Discharge Date Admission Date: June 26, 2023 Subjective Patient is a poor historian. Review of Systems Review of Systems: All systems reviewed & are unremarkable except as noted in HPI & below Physical Exam Physical Exam: Patient awake oriented that he is in the hospital feeding himself. No focal complaints. No significant suprapubic tenderness urine as mentioned is gracia colored Results & Data Results & Data Vital Signs (Past 12 Hours) Vital Signs Temp Pulse Pulse Resp BP Pulse Ox O2 Del Method 07/03/23 19:09 36.6 C 94 H 18 136/87 95 Room Air 07/03/23 16:08 86 07/03/23 15:56 36.6 C 81 16 130/64 96 Room Air 07/03/23 11:56 36.6 C 72 16 115/59 L 98 Room Air PG Care Time/CCT Total # of Minutes Spent Total Time Spent with Patient: Total time spent is greater than 50% in coordination of care (as documented) at patient's floor/unit and/or counseling patient: Coding Level of Care Code 07822 SUB INP/OBS CARE 2/35MIN Diagnoses Encephalopathy G93.40 Dvt femoral (deep venous thrombosis) I82.419 Stage III pressure ulcer of left buttock L89.323 Nephrolithiasis N20.0 Constipation K59.00 Diabetes mellitus type 2 with neurological manifestations E11.49 Parkinsons disease G20 On prednisone therapy Z79.52
[2023-07-04] MEDS: OLANZapine 10 MG/2.1 ML SDV IM STA (06:20)
[2023-07-04 06:25] LABS: Hematocrit (blood only) 38.6 % (42.0-52.0); Hemoglobin 13.1 g/dl (14.0-18.0); Mean Corpuscular Hemoglobin 30.3 pg (25.0-34.0); Mean Corpuscular Hgb Conc 33.9 g/dL (32.0-36.0); Mean Corpuscular Volume 89.4 fL (80.0-100.0); Mean Platelet Volume 9.2 fL (9.4-12.4); Platelet Count 210 K/uL (130-400); RDW Coefficient of Variation 14.4 % (11.5-14.5); RDW Standard Deviation 46.5 fL (36.4-46.3); Red Blood Count 4.32 M/uL (4.70-6.10); White Blood Count 7.51 K/ul (4.8-10.8)
[2023-07-04 06:42] LABS: Calcium 9.1 mg/dl (8.6-10.3); Creatinine Clr Calc Pharmacy 53.2 ml/min; Est GFR (African American) 75.7 ml/min; Est GFR (Non-African American) 65.3 ml/min; Potassium 3.8 mmol/L (3.5-5.1)
--- NOTE | 2023-07-04 22:00 | Hospitalist Progress Note ---
Date of Service July 04, 2023 Assessment & Plan (1) Encephalopathy: Plan: Seems to have improved/resolved Family notes progression of dementia with his Parkinson's disease prior to hospitalization Initial concern was for metabolic encephalopathy from urinary tract infection present on admission. However urine culture has not grown Toxic encephalopathy also concern from cefepime dose has been discontinued. Overall improvement may be from stopping cefepime and getting the patient some sleep. Certainly baseline may be progressive dementia from his Parkinson's disease however behavioral control is required due to him pulling at lines and endangering himself. zyprexa will be discontinued melatonin continued for sleep see how he does in the morning Patient appears to be confused on 07/04 (2) Dvt femoral (deep venous thrombosis): Plan: Patient presented for constipation x 5 days; took suppository without relief A DVT in the right common femoral vein was noted on abdomen/pelvic CT Heparin IV with bolus started in the ED continued surrounding his recent cystoscopy for ease of discontinuation of hematuria with persistent likely transition to Eliquis on 06/29/2023 does have some garcia colored urine will follow initially held Eliquis however urology does not feel is required to have this anticoagulation held we will restart it in the evening of 07/01/2023 feel that urine is likely from irritation from stent plus minus Lujan catheter (3) Stage III pressure ulcer of left buttock: Plan: present on admission, concern for cellulitis Wound care consult previous grew MRSA, in march grew pseudomonas Vancomycin, MRSA coverage, will have on 1 week and continue to review site (4) Nephrolithiasis: Plan: 7 mm obstructing calculus in the distal left ureter Urology consulted, cystoscopy with stenting with outpatient definitive care for stone once discharged Acetaminophen as needed for pain presented with urinary retention has lujan at this time wine/garcia colored urine persist urology is following (5) Constipation: Plan: Abdomen/pelvic CT revealed rectosigmoid fecal retention and moderate constipation MiraLAX, senna with good results of stool Fleet enema as needed (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 Patient well need symptom control for agitation at times with Devikal (8) On prednisone therapy: Plan: For PMR/giant cell arteritis Started at a 20 mg dose patient is currently on taper (reduction of 2.5 mg every 2 weeks) Currently at 12.5 mg daily; continue on this for now, supposed to taper to 10 mg on saturday 07/01 Be cautious for adrenal crisis from steroid deficiency Plan suspected Urinary tract infection present on admission cultures are pendingempirically on vancomycin for wound previous Pseudomonas in urine in March DNR/DNI Patient is on apixaban 5 twice daily. Anticipate transition to rehabilitation in the next day or 2 Admission and Anticipated Discharge Date Admission Date: June 26, 2023 Subjective Patient is confused. Review of Systems Review of Systems: Unobtainable due to cognitive status Physical Exam Physical Exam: Patient awake oriented that he is in the hospital feeding himself. No focal complaints. No significant suprapubic tenderness urine as mentioned is garcia colored Results & Data Results & Data Vital Signs (Past 12 Hours) Vital Signs Temp Pulse Resp BP Pulse Ox O2 Del Method 07/04/23 19:05 36.7 C 18 140/62 97 Room Air 07/04/23 12:00 36.4 C L 81 18 125/61 98 Room Air PG Care Time/CCT Total # of Minutes Spent Total Time Spent with Patient: Total time spent is greater than 50% in coordination of care (as documented) at patient's floor/unit and/or counseling patient: Coding Level of Care Code 73634 SUB INP/OBS CARE 2/35MIN Diagnoses Encephalopathy G93.40 Dvt femoral (deep venous thrombosis) I82.419 Stage III pressure ulcer of left buttock L89.323 Nephrolithiasis N20.0 Constipation K59.00 Diabetes mellitus type 2 with neurological manifestations E11.49 Parkinsons disease G20 On prednisone therapy Z79.52
[2023-07-05 07:45] LABS: Hematocrit (blood only) 36.2 % (42.0-52.0); Hemoglobin 12.3 g/dl (14.0-18.0); Mean Corpuscular Hemoglobin 30.1 pg (25.0-34.0); Mean Corpuscular Volume 88.7 fL (80.0-100.0); Mean Platelet Volume 9.7 fL (9.4-12.4); Platelet Count 204 K/uL (130-400); RDW Coefficient of Variation 14.6 % (11.5-14.5); RDW Standard Deviation 47.3 fL (36.4-46.3); Red Blood Count 4.08 M/uL (4.70-6.10); White Blood Count 9.27 K/ul (4.8-10.8)
[2023-07-05 08:02] LABS: BUN Creatinine Ratio 32.4 (10-20); C Reactive Protein 1.73 mg/dl (0-0.5); Creatinine Clr Calc Pharmacy 52.3 ml/min; Est GFR (African American) 75.7 ml/min; Est GFR (Non-African American) 65.3 ml/min; Potassium 3.7 mmol/L (3.5-5.1)
[2023-07-05] MEDS: CARBOHYDRATES FOR HYPOGLYCEMIA PO PRN (16:40)
--- NOTE | 2023-07-05 22:00 | Hospitalist Progress Note ---
Date of Service July 05, 2023 Assessment & Plan (1) Encephalopathy: Plan: Seems to have improved/resolved Family notes progression of dementia with his Parkinson's disease prior to hospitalization Initial concern was for metabolic encephalopathy from urinary tract infection present on admission. However urine culture has not grown Toxic encephalopathy also concern from cefepime dose has been discontinued. Overall improvement may be from stopping cefepime and getting the patient some sleep. Certainly baseline may be progressive dementia from his Parkinson's disease however behavioral control is required due to him pulling at lines and endangering himself. zyprexa will be discontinued melatonin continued for sleep see how he does in the morning Patient appears to be less confused on 07/05 Patient has been waxing and waning over the past few days which is typical in this setting. (2) Dvt femoral (deep venous thrombosis): Plan: Patient presented for constipation x 5 days; took suppository without relief A DVT in the right common femoral vein was noted on abdomen/pelvic CT Heparin IV with bolus started in the ED continued surrounding his recent cystoscopy for ease of discontinuation of hematuria with persistent likely transition to Eliquis on 06/29/2023 Urine has cleared up and patient has been on eliquis since 07/01 will continue to monitor. (3) Stage III pressure ulcer of left buttock: Plan: present on admission, concern for cellulitis Wound care consult previous grew MRSA, in march grew pseudomonas Vancomycin, MRSA coverage, will have on 1 week and continue to review site. Patient completed 7 days. (4) Nephrolithiasis: Plan: 7 mm obstructing calculus in the distal left ureter Urology consulted, cystoscopy with stenting with outpatient definitive care for stone once discharged Acetaminophen as needed for pain presented with urinary retention has lujan at this time wine/garcia colored urine persist urology is following urine is now more clear. (5) Constipation: Plan: Abdomen/pelvic CT revealed rectosigmoid fecal retention and moderate constipation MiraLAX, senna with good results of stool Fleet enema as needed (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 Patient well need symptom control for agitation at times with Devikal (8) On prednisone therapy: Plan: For PMR/giant cell arteritis Started at a 20 mg dose patient is currently on taper (reduction of 2.5 mg every 2 weeks) Currently at 12.5 mg daily; continue on this for now, supposed to taper to 10 mg on saturday 07/01 Be cautious for adrenal crisis from steroid deficiency Plan suspected Urinary tract infection present on admission cultures are pendingempirically on vancomycin for wound previous Pseudomonas in urine in March DNR/DNI Patient is on apixaban 5 twice daily. Anticipate transition to rehabilitation in the next day or 2 Admission and Anticipated Discharge Date Admission Date: June 26, 2023 Subjective Patient is more talkative and less confused. Review of Systems Review of Systems: All systems reviewed & are unremarkable except as noted in HPI & below Physical Exam Physical Exam: Patient awake, appears less confused on 07/05. No focal complaints. No significant suprapubic tenderness. urine appears more clear. Results & Data Results & Data Vital Signs (Past 12 Hours) Vital Signs Temp Pulse Resp BP BP Pulse Ox O2 Del Method 07/05/23 19:32 36.7 C 78 23 123/75 97 Room Air 07/05/23 15:24 36.8 C 81 15 113/59 L 98 Room Air 07/05/23 11:46 36.3 C L 74 17 123/64 96 Room Air PG Care Time/CCT Total # of Minutes Spent Total Time Spent with Patient: Total time spent is greater than 50% in coordination of care (as documented) at patient's floor/unit and/or counseling patient: Coding Level of Care Code 09375 SUB INP/OBS CARE MIN Diagnoses Encephalopathy G93.40 Dvt femoral (deep venous thrombosis) I82.419 Stage III pressure ulcer of left buttock L89.323 Nephrolithiasis N20.0 Constipation K59.00 Diabetes mellitus type 2 with neurological manifestations E11.49 Parkinsons disease G20 On prednisone therapy Z79.52
[2023-07-06 06:15] LABS: BUN Creatinine Ratio 30.2 (10-20); Calcium 9.2 mg/dl (8.6-10.3); Creatinine Clr Calc Pharmacy 52.8 ml/min; Est GFR (African American) 74.9 ml/min; Est GFR (Non-African American) 64.6 ml/min; Potassium 3.9 mmol/L (3.5-5.1)
[2023-07-06] MEDS ORDERED: APIXABAN 5 MG TABLET PO SCH (09:00)
--- NOTE | 2023-07-06 10:50 | Hospitalist Progress Note ---
Date of Service July 06, 2023 Assessment & Plan (1) Encephalopathy: Plan: Seems to have improved/resolved Family notes progression of dementia with his Parkinson's disease prior to hospitalization Initial concern was for metabolic encephalopathy from urinary tract infection present on admission. However urine culture has not grown Toxic encephalopathy also concern from cefepime dose has been discontinued. Overall improvement may be from stopping cefepime and getting the patient some sleep. Certainly baseline may be progressive dementia from his Parkinson's disease however behavioral control is required due to him pulling at lines and endangering himself. zyprexa will be discontinued melatonin continued for sleep see how he does in the morning Patient appears to be less confused on 07/05 Patient has been waxing and waning over the past few days which is typical in this setting. will transfer out of [facility] on 07/06 (2) Dvt femoral (deep venous thrombosis): Plan: Patient presented for constipation x 5 days; took suppository without relief A DVT in the right common femoral vein was noted on abdomen/pelvic CT Heparin IV with bolus started in the ED continued surrounding his recent cystoscopy for ease of discontinuation of hematuria with persistent likely transition to Eliquis on 06/29/2023 Urine has cleared up and patient has been on eliquis since 07/01 will continue to monitor. (3) Stage III pressure ulcer of left buttock: Plan: present on admission, concern for cellulitis Wound care consult previous grew MRSA, in march grew pseudomonas Vancomycin, MRSA coverage, will have on 1 week and continue to review site. Patient completed 7 days. (4) Nephrolithiasis: Plan: 7 mm obstructing calculus in the distal left ureter Urology consulted, cystoscopy with stenting with outpatient definitive care for stone once discharged Acetaminophen as needed for pain presented with urinary retention has lujan at this time wine/garcia colored urine persist urology is following urine is now more clear. (5) Constipation: Plan: Abdomen/pelvic CT revealed rectosigmoid fecal retention and moderate constipation MiraLAX, senna with good results of stool Fleet enema as needed (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 Patient well need symptom control for agitation at times with Haldol (8) On prednisone therapy: Plan: For PMR/giant cell arteritis Started at a 20 mg dose patient is currently on taper (reduction of 2.5 mg every 2 weeks) Currently at 12.5 mg daily; continue on this for now, supposed to taper to 10 mg on saturday 07/01 Be cautious for adrenal crisis from steroid deficiency Plan suspected Urinary tract infection present on admission cultures are pendingempirically on vancomycin for wound previous Pseudomonas in urine in March DNR/DNI Patient is on apixaban 5 twice daily. Anticipate transition to rehabilitation in the next day or 2 Admission and Anticipated Discharge Date Admission Date: June 26, 2023 Subjective Had extensive discussion with his . Patient is lyig in bed, concerned about his tele montor. Review of Systems Review of Systems: Unobtainable due to cognitive status Physical Exam Physical Exam: Patient awake, appears less confused on 07/05. No focal complaints. No significant suprapubic tenderness. urine appears more clear. Results & Data Results & Data Vital Signs (Past 12 Hours) Vital Signs Temp Pulse Pulse Resp BP BP Pulse Ox 07/06/23 07:00 66 07/06/23 06:58 37.0 C 70 18 133/76 96 07/06/23 03:01 36.5 C 68 12 144/76 H 98 07/05/23 22:53 36.9 C 76 16 127/66 98 O2 Del Method 07/06/23 07:00 07/06/23 06:58 Room Air 07/06/23 03:01 Room Air 07/05/23 22:53 Room Air PG Care Time/CCT Total # of Minutes Spent Total Time Spent with Patient: Total time spent is greater than 50% in coordination of care (as documented) at patient's floor/unit and/or counseling patient: Coding Level of Care Code 71321 SUB INP/OBS CARE MIN Diagnoses Encephalopathy G93.40 Dvt femoral (deep venous thrombosis) I82.419 Stage III pressure ulcer of left buttock L89.323 Nephrolithiasis N20.0 Constipation K59.00 Diabetes mellitus type 2 with neurological manifestations E11.49 Parkinsons disease G20 On prednisone therapy Z79.52
[2023-07-07 08:53] LABS: Calcium 9.3 mg/dl (8.6-10.3); Creatinine Clr Calc Pharmacy 44.4 ml/min; Est GFR (African American) 60.7 ml/min; Est GFR (Non-African American) 52.4 ml/min; Potassium 4.3 mmol/L (3.5-5.1)
--- NOTE | 2023-07-07 20:53 | Hospitalist Progress Note ---
Date of Service July 07, 2023 Assessment & Plan (1) Encephalopathy: Plan: Seems to have improved/resolved Family notes progression of dementia with his Parkinson's disease prior to hospitalization Initial concern was for metabolic encephalopathy from urinary tract infection present on admission. However urine culture has not grown Toxic encephalopathy also concern from cefepime dose has been discontinued. Overall improvement may be from stopping cefepime and getting the patient some sleep. Certainly baseline may be progressive dementia from his Parkinson's disease however behavioral control is required due to him pulling at lines and endangering himself. zyprexa will be discontinued melatonin continued for sleep see how he does in the morning Patient appears to be less confused on 07/05 Patient has been waxing and waning over the past few days which is typical in this setting. will transfer out of [facility] on 07/06 Patient remains stable on 07/07 (2) Dvt femoral (deep venous thrombosis): Plan: Patient presented for constipation x 5 days; took suppository without relief A DVT in the right common femoral vein was noted on abdomen/pelvic CT Heparin IV with bolus started in the ED continued surrounding his recent cystoscopy for ease of discontinuation of hematuria with persistent likely transition to Eliquis on 06/29/2023 Urine has cleared up and patient has been on eliquis since 07/01 will continue to monitor. (3) Stage III pressure ulcer of left buttock: Plan: present on admission, concern for cellulitis Wound care consult previous grew MRSA, in march grew pseudomonas Vancomycin, MRSA coverage, will have on 1 week and continue to review site. Patient completed 7 days. (4) Nephrolithiasis: Plan: 7 mm obstructing calculus in the distal left ureter Urology consulted, cystoscopy with stenting with outpatient definitive care for stone once discharged Acetaminophen as needed for pain presented with urinary retention has lujan at this time wine/garcia colored urine persist urology is following urine is now more clear. (5) Constipation: Plan: Abdomen/pelvic CT revealed rectosigmoid fecal retention and moderate constipation MiraLAX, senna with good results of stool Fleet enema as needed (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 Patient well need symptom control for agitation at times with Haldol (8) On prednisone therapy: Plan: For PMR/giant cell arteritis Started at a 20 mg dose patient is currently on taper (reduction of 2.5 mg every 2 weeks) Currently at 12.5 mg daily; continue on this for now, supposed to taper to 10 mg on saturday 07/01 Be cautious for adrenal crisis from steroid deficiency Plan suspected Urinary tract infection present on admission cultures are pendingempirically on vancomycin for wound previous Pseudomonas in urine in March DNR/DNI Patient is on apixaban 5 twice daily. Anticipate transition to rehabilitation in the next day or 2 Admission and Anticipated Discharge Date Admission Date: June 26, 2023 Subjective Patient is calm. Patient has no new complaints. Review of Systems Review of Systems: All systems reviewed & are unremarkable except as noted in HPI & below Physical Exam Physical Exam: Patient awake, appears less confused on 07/05. No focal complaints. No significant suprapubic tenderness. urine appears more clear. Results & Data Results & Data Vital Signs (Past 12 Hours) Vital Signs Temp Pulse Resp BP Pulse Ox O2 Del Method 07/07/23 18:56 36.7 C 70 18 149/69 H 97 Room Air 07/07/23 16:17 37 C 70 18 126/72 Room Air PG Care Time/CCT Total # of Minutes Spent Total Time Spent with Patient: Total time spent is greater than 50% in coordination of care (as documented) at patient's floor/unit and/or counseling patient: Coding Level of Care Code 15152 SUB INP/OBS CARE MIN Diagnoses Encephalopathy G93.40 Dvt femoral (deep venous thrombosis) I82.419 Stage III pressure ulcer of left buttock L89.323 Nephrolithiasis N20.0 Constipation K59.00 Diabetes mellitus type 2 with neurological manifestations E11.49 Parkinsons disease G20 On prednisone therapy Z79.52
[2023-07-08 07:51] LABS: Hematocrit (blood only) 36.8 % (42.0-52.0); Hemoglobin 12.8 g/dl (14.0-18.0); Mean Corpuscular Hemoglobin 30.5 pg (25.0-34.0); Mean Corpuscular Hgb Conc 34.8 g/dL (32.0-36.0); Mean Corpuscular Volume 87.6 fL (80.0-100.0); Mean Platelet Volume 9.2 fL (9.4-12.4); Platelet Count 202 K/uL (130-400); RDW Coefficient of Variation 14.6 % (11.5-14.5); RDW Standard Deviation 46.3 fL (36.4-46.3); White Blood Count 8.34 K/ul (4.8-10.8)
[2023-07-08 08:15] LABS: BUN Creatinine Ratio 27.5 (10-20); Calcium 8.7 mg/dl (8.6-10.3); Creatinine Clr Calc Pharmacy 51.3 ml/min; Est GFR (African American) 72.4 ml/min; Est GFR (Non-African American) 62.4 ml/min; Potassium 3.9 mmol/L (3.5-5.1)
[2023-07-08] MEDS: ACETAMINOPHEN 325 MG TAB PO PRN (21:57)
--- NOTE | 2023-07-09 06:58 | Hospitalist Progress Note ---
Date of Service July 08, 2023 Assessment & Plan (1) Encephalopathy: Plan: Seems to have improved/resolved Family notes progression of dementia with his Parkinson's disease prior to hospitalization Initial concern was for metabolic encephalopathy from urinary tract infection present on admission. However urine culture has not grown Toxic encephalopathy also concern from cefepime dose has been discontinued. Overall improvement may be from stopping cefepime and getting the patient some sleep. Certainly baseline may be progressive dementia from his Parkinson's disease however behavioral control is required due to him pulling at lines and endangering himself. zyprexa will be discontinued melatonin continued for sleep see how he does in the morning Patient appears to be less confused on 07/05 Patient has been waxing and waning over the past few days which is typical in this setting. will transfer out of [facility] on 07/06 Patient remains stable on 07/07-07/08 labs reviewed. (2) Dvt femoral (deep venous thrombosis): Plan: Patient presented for constipation x 5 days; took suppository without relief A DVT in the right common femoral vein was noted on abdomen/pelvic CT Heparin IV with bolus started in the ED continued surrounding his recent cystoscopy for ease of discontinuation of hematuria with persistent likely transition to Eliquis on 06/29/2023 Urine has cleared up and patient has been on eliquis since 07/01 will continue to monitor. (3) Stage III pressure ulcer of left buttock: Plan: present on admission, concern for cellulitis Wound care consult previous grew MRSA, in march grew pseudomonas Vancomycin, MRSA coverage, will have on 1 week and continue to review site. Patient completed 7 days. (4) Nephrolithiasis: Plan: 7 mm obstructing calculus in the distal left ureter Urology consulted, cystoscopy with stenting with outpatient definitive care for stone once discharged Acetaminophen as needed for pain presented with urinary retention has lujan at this time wine/garcia colored urine persist urology is following urine is now more clear. (5) Constipation: Plan: Abdomen/pelvic CT revealed rectosigmoid fecal retention and moderate constipation MiraLAX, senna with good results of stool Fleet enema as needed (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 Patient well need symptom control for agitation at times with Haldol (8) On prednisone therapy: Plan: For PMR/giant cell arteritis Started at a 20 mg dose patient is currently on taper (reduction of 2.5 mg every 2 weeks) Currently at 12.5 mg daily; continue on this for now, supposed to taper to 10 mg on saturday 07/01 Be cautious for adrenal crisis from steroid deficiency Plan suspected Urinary tract infection present on admission cultures are pendingempirically on vancomycin for wound previous Pseudomonas in urine in March DNR/DNI Patient is on apixaban 5 twice daily. Anticipate transition to rehabilitation in the next day or 2 Admission and Anticipated Discharge Date Admission Date: June 26, 2023 Subjective Patient appears calm. Review of Systems Review of Systems: All systems reviewed & are unremarkable except as noted in HPI & below Physical Exam Physical Exam: Patient awake, appears less confused on 07/05. No focal complaints. No significant suprapubic tenderness. urine appears more clear. Results & Data Results & Data Vital Signs (Past 12 Hours) Vital Signs Temp Pulse Resp BP Pulse Ox O2 Del Method 07/08/23 21:15 36.6 C 76 18 147/70 H 97 Room Air 07/08/23 20:00 Room Air PG Care Time/CCT Total # of Minutes Spent Total Time Spent with Patient: Total time spent is greater than 50% in coordination of care (as documented) at patient's floor/unit and/or counseling patient: Coding Level of Care Code 12701 SUB INP/OBS CARE 2/35MIN Diagnoses Encephalopathy G93.40 Dvt femoral (deep venous thrombosis) I82.419 Stage III pressure ulcer of left buttock L89.323 Nephrolithiasis N20.0 Constipation K59.00 Diabetes mellitus type 2 with neurological manifestations E11.49 Parkinsons disease G20 On prednisone therapy Z79.52
--- NOTE | 2023-07-09 18:02 | Hospitalist Progress Note ---
Date of Service July 09, 2023 Assessment & Plan (1) Encephalopathy: Plan: Seems to have improved/resolved Family notes progression of dementia with his Parkinson's disease prior to hospitalization Initial concern was for metabolic encephalopathy from urinary tract infection present on admission. However urine culture has not grown Toxic encephalopathy also concern from cefepime dose has been discontinued. Overall improvement may be from stopping cefepime and getting the patient some sleep. Certainly baseline may be progressive dementia from his Parkinson's disease however behavioral control is required due to him pulling at lines and endangering himself. zyprexa will be discontinued melatonin continued for sleep see how he does in the morning Patient appears to be less confused on 07/05 Patient has been waxing and waning over the past few days which is typical in this setting. will transfer out of [facility] on 07/06 Patient remains stable on 07/07-07/09 labs reviewed. Updated family on 07/09 (2) Dvt femoral (deep venous thrombosis): Plan: Patient presented for constipation x 5 days; took suppository without relief A DVT in the right common femoral vein was noted on abdomen/pelvic CT Heparin IV with bolus started in the ED continued surrounding his recent cystoscopy for ease of discontinuation of hematuria with persistent likely transition to Eliquis on 06/29/2023 Urine has cleared up and patient has been on eliquis since 07/01 will continue to monitor. (3) Stage III pressure ulcer of left buttock: Plan: present on admission, concern for cellulitis Wound care consult previous grew MRSA, in march grew pseudomonas Vancomycin, MRSA coverage, will have on 1 week and continue to review site. Patient completed 7 days. (4) Nephrolithiasis: Plan: 7 mm obstructing calculus in the distal left ureter Urology consulted, cystoscopy with stenting with outpatient definitive care for stone once discharged Acetaminophen as needed for pain presented with urinary retention has lujan at this time wine/garcia colored urine persist urology is following urine is now more clear. (5) Constipation: Plan: Abdomen/pelvic CT revealed rectosigmoid fecal retention and moderate constipation MiraLAX, senna with good results of stool Fleet enema as needed (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 Patient well need symptom control for agitation at times with Haldol (8) On prednisone therapy: Plan: For PMR/giant cell arteritis Started at a 20 mg dose patient is currently on taper (reduction of 2.5 mg every 2 weeks) Currently at 12.5 mg daily; continue on this for now, supposed to taper to 10 mg on saturday 07/01 Be cautious for adrenal crisis from steroid deficiency Plan suspected Urinary tract infection present on admission cultures are pendingempirically on vancomycin for wound previous Pseudomonas in urine in March DNR/DNI Patient is on apixaban 5 twice daily. Anticipate transition to rehabilitation in the next day or 2 Admission and Anticipated Discharge Date Admission Date: June 26, 2023 Subjective Patient is intermittently confused. Review of Systems Review of Systems: All systems reviewed & are unremarkable except as noted in HPI & below Physical Exam Physical Exam: Patient awake, appears less confused on 07/05. No focal complaints. No significant suprapubic tenderness. urine appears more clear. Results & Data Results & Data Vital Signs (Past 12 Hours) Vital Signs Temp Pulse Resp BP Pulse Ox O2 Del Method 07/09/23 14:30 37.1 C 88 18 126/80 98 Room Air 07/09/23 07:43 36.6 C 83 18 150/76 H 99 Room Air PG Care Time/CCT Total # of Minutes Spent Total Time Spent with Patient: Total time spent is greater than 50% in coordination of care (as documented) at patient's floor/unit and/or counseling patient: Coding Level of Care Code 46895 SUB INP/OBS CARE 235MIN Diagnoses Encephalopathy G93.40 Dvt femoral (deep venous thrombosis) I82.419 Stage III pressure ulcer of left buttock L89.323 Nephrolithiasis N20.0 Constipation K59.00 Diabetes mellitus type 2 with neurological manifestations E11.49 Parkinsons disease G20 On prednisone therapy Z79.52
[2023-07-10 07:06] LABS: Hematocrit (blood only) 38.2 % (42.0-52.0); Hemoglobin 12.8 g/dl (14.0-18.0); Mean Corpuscular Hemoglobin 30.1 pg (25.0-34.0); Mean Corpuscular Hgb Conc 33.5 g/dL (32.0-36.0); Mean Corpuscular Volume 89.9 fL (80.0-100.0); Mean Platelet Volume 9.2 fL (9.4-12.4); Platelet Count 210 K/uL (130-400); RDW Coefficient of Variation 14.7 % (11.5-14.5); RDW Standard Deviation 47.9 fL (36.4-46.3); Red Blood Count 4.25 M/uL (4.70-6.10); White Blood Count 9.17 K/ul (4.8-10.8)
[2023-07-10 07:32] LABS: BUN Creatinine Ratio 25.6 (10-20); Calcium 9.1 mg/dl (8.6-10.3); Creatinine Clr Calc Pharmacy 42.1 ml/min; Est GFR (African American) 56.9 ml/min; Est GFR (Non-African American) 49.1 ml/min; Potassium 3.6 mmol/L (3.5-5.1)
--- NOTE | 2023-07-10 13:06 | Discharge Summary ---
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 He presented for constipation x 5 days, as well as lower back pain secondary to his ongoing decubitus ulcer. Last BM was on Tuesday 06/20, and patient reports that he was unable to to void this morning (he last urinated the morning of 06/26 at 2 AM. Patient has a history of kidney stones. He denies flank pain at present, but notes that he was having lower back pain yesterday. He is currently being seen at wound clinic for the past 2.5 months for his decubitus ulcer. He endorses 7/10 lower back pain at present; no radiation; he has not been taking additional pain medications at home. He did not take his regular morning medications today; his helps him manage his medications. He is currently tapering off of prednisone for giant cell arteritis/PMR. He normally takes 10u Lantus in the evenings. He also notes ongoing MOSLEY over the past 3-4 months. He notes that he occasionally has SOB at rest, and that his shortness of breath is worse when lying flat. Uses a walker at baseline for ambulation. He denies recent falls or trauma to the head or neck. He notes he has not been drinking much recently, and that he frequently eats sweets. Mild hypertension 149/94 at time of admission; SpO2 99% on RA. ED course: Vancomycin 1500 mg IV Heparin IV with bolus ROS: Patient endorses MOSLEY, productive cough (white), constipation, lower back pain, rectal pain, N/T going down legs, N/T in groin region, and swelling in feet. Patient denies fever, chills, nightweats, dizziness, lightheadedness, SPEARS, chest pain, chest palpitations, pleuritic CP, hemoptysis, abdominal pain, or N/V/D. Principal Diagnosis encephalopathy Discharge Exam Patient awake, appears less confused on 07/05. No focal complaints. No significant suprapubic tenderness. urine appears more clear. Discharge Data Allergies Allergy/AdvReac Type Severity Reaction Status Date / Time doxazosin AdvReac Intermediate TIRED Verified 06/26/23 15:14 lisinopril AdvReac Intermediate COUGH Verified 06/26/23 15:14 Consultations 06/26/23 16:04 ED Decision to Admit Stat 06/26/23 19:33 Consult Urology Routine Procedures Performed Operation Date: 06/27/23 13:25 Actual Procedures p Cystoscopy, Retrograde Pyelogram, Left Ureteral Stent Placement(Left) - Raul Bond MD Ordered Studies 06/26/23 10:34 CT abd pelvis IV con only Stat 06/27/23 13:30 FL retrograde includes kub Routine Hospital Course (1) Encephalopathy: Seems to have improved/resolved Family notes progression of dementia with his Parkinson's disease prior to hospitalization Initial concern was for metabolic encephalopathy from urinary tract infection present on admission. However urine culture has not grown Toxic encephalopathy also concern from cefepime dose has been discontinued. Overall improvement may be from stopping cefepime and getting the patient some sleep. Certainly baseline may be progressive dementia from his Parkinson's disease however behavioral control is required due to him pulling at lines and endangering himself. zyprexa will be discontinued melatonin continued for sleep see how he does in the morning Patient appears to be less confused on 07/05 Patient has been waxing and waning over the past few days which is typical in this setting. will transfer out of pcu on 07/06 Patient remains stable on 07/07-07/09 labs reviewed. Updated family on 07/09 Discharged home on (2) Dvt femoral (deep venous thrombosis): Patient presented for constipation x 5 days; took suppository without relief A DVT in the right common femoral vein was noted on abdomen/pelvic CT Heparin IV with bolus started in the ED continued surrounding his recent cystoscopy for ease of discontinuation of hematuria with persistent likely transition to Eliquis on 06/29/2023 Urine has cleared up and patient has been on eliquis since 07/01 (3) Stage III pressure ulcer of left buttock: present on admission, concern for cellulitis Wound care consult previous grew MRSA, in march grew pseudomonas Vancomycin, MRSA coverage, will have on 1 week and continue to review site. Patient completed 7 days. (4) Nephrolithiasis: 7 mm obstructing calculus in the distal left ureter Urology consulted, cystoscopy with stenting with outpatient definitive care for stone once discharged Acetaminophen as needed for pain presented with urinary retention has lujan at this time wine/garcia colored urine persist urology is following urine is now more clear. will followup with urology as an outpatient (5) Constipation: Abdomen/pelvic CT revealed rectosigmoid fecal retention and moderate constipation MiraLAX, senna with good results of stool Fleet enema as needed (6) Diabetes mellitus type 2 with neurological manifestations: Last A1c at 7.8% on 02/24/2023 Hold Sitagliptin poor po intake lantus stopped 06/29 ssi tightened if persistent insulin incr eased may consider restarting Lantus on 07/02/2023 (7) Parkinsons disease: Continue Sinemet As 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 Patient well need symptom control for agitation at times with Haldol (8) On prednisone therapy: For PMR/giant cell arteritis Started at a 20 mg dose patient is currently on taper (reduction of 2.5 mg every 2 weeks) Currently at 12.5 mg daily; continue on this for now, supposed to taper to 10 mg on saturday 07/01 Be cautious for adrenal crisis from steroid deficiency Total Time Total Time Spent Total Time Spent (In Minutes): 32 Discharge Plan Discharge Items Patient Disposition: Home - Self-Care Reason For Visit: CONSTIPATION, DECUBITUS ULCER Discharge Diagnosis: constipation, decubitus ulcer Activity: Resume your previous activity Non-emergency contact: Primary Care Provider Call non-emergency contact if: you have any medication questions Follow-up/Referrals: Gen Shi MD [Primary Care Provider] - 07/15/23 3:00 pm Raul Bond MD [Physician] - 07/29/23 3:30 pm Diet: Carb Consistent or DM2 Addtl Attending Provider Instructions: Urology followup, cystoscopy with stenting with outpatient definitive care for stone once discharged Taper Prednisone taper to 7.5 mg on friday 07/14 taper every 2 weeks Followup with PCP in 1-2 weeks Pending Studies at Discharge: No Stand-Alone Forms: My Curbside, Smoking Cessation Medications and DC Order Prescriptions: New Eliquis 5 mg Tablet 5 mg PO BID Qty: 60 0RF prednisone 2.5 mg tablet See Rx Instructions .ROUTE .COMPLEX Qty: 100 0RF Rx Instructions: Take 4 tablets every day On July 14, cut down to 3 tablets once daily July 28, cut down to 2 tablets once daily, then cut to 2.5 2 weeks later Continued (DME) lancets [facility] [place] See Rx Instructions .ROUTE .MEDSUPPLY Qty: 200 3RF Rx Instructions: Test once daily and as needed Januvia 50 mg tablet 50 mg PO QAM Qty: 30 11RF tamsulosin 0.4 mg capsule 0.4 mg PO QAM Qty: 90 3RF carbidopa-levodopa [Sinemet] 25-100 mg tablet 1.5 tab PO TID 90 Days Qty: 405 1RF finasteride 5 mg tablet 5 mg PO QAM Qty: 90 3RF Novolin R FlexPen 100 unit/mL (3 mL) insulin pen See Rx Instructions subcut BID Qty: 2 3RF Rx Instructions: Inject 5-10 units before lunch and supper subcutaneously every day. (DME) pen needle, diabetic [BD Ultra-Fine Mini Pen Needle] 31 gauge x 3/16" needle See Rx Instructions .Route Qty: 100 3RF Rx Instructions: As directed cholecalciferol (vitamin D3) 25 mcg (1,000 unit) capsule 25 mcg PO HS vitamin B complex Tablet 1 tab PO HS aspirin [Gordo Low Dose Aspirin] 81 mg tablet,delayed release (DR/EC) 81 mg PO QAM guar gum Packet 1 tbsp PO QAM Rx Instructions: mix into at least 4 oz water or juice before administering Benefiber insulin glargine [Lantus Solostar U-100 Insulin] 100 unit/mL (3 mL) insulin pen 15 unit subcut QAM Discontinued simvastatin 20 mg tablet 20 mg PO QPM Qty: 90 3RF prednisone 20 mg tablet 10 mg PO DAILY Qty: 15 1RF mirtazapine 7.5 mg tablet 7.5 mg PO DAILY Qty: 30 5RF No Action Freestlye BSG Monitor .Route Rx Instructions: check BSG 4 x a day and prn. Discharge Orders: Discharge Order (Routine); Ordered 07/10/23 Ordered By: Ap Real/Other Patient Handouts: ED Deep Vein Thrombosis (DVT) Admission Data Admit Date/Time: 06/26/23 14:47 Attending Provider: Ap Bella Admit Provider: Bandar Bryson Primary Care Provider: Shi,Christopher E. Other Providers: [facility]; [facility]; Bandar Bryson; [facility]; [facility] Other Interventions: Discharge Summary Assessment (RN) Last Done: 07/10/23 13:10 Coding Level of Care Code 38806 INP/OBS DISCH >30 MIN Diagnoses Encephalopathy G93.40 Dvt femoral (deep venous thrombosis) I82.419 Stage III pressure ulcer of left buttock L89.323 Nephrolithiasis N20.0 Constipation K59.00 Diabetes mellitus type 2 with neurological manifestations E11.49 Parkinsons disease G20 On prednisone therapy Z79.52
== END 2023-07-10 13:30 | disposition home or self-care (01) | DRG 659 ==
LOC: ED 10:05 → SUATTDRO 14:47 → EDINP 14:47 → 2E 19:21 → 3W 07-07 00:14 → 3E 07-09 17:32